=== PATIENT | male | born 1950 | race Hispanic/Latino ===

== ENCOUNTER 2018-02-08 12:27 | Emergency (ER) | payer OTHER ==
--- NOTE | 2018-02-08 14:07 | ER ---
Nurse's Notes [facility] Name: Nii Zelaya Age: 67 yrs Sex: Male : 1950 Arrival Date: 02/08/2018 Time: 12:32 Bed 23 Private MD: Diagnosis: Encounter for checking and testing of cardiac pacemaker pulse generator [battery] Presentation: 02/08 12:38 Presenting complaint: Patient states: Pacer/defibrillator beeped once last night, twice hb today. Pt reports chest pressure but says he has it all the time, the pain is the same. Transition of care: patient was not received from another setting of care. Onset of symptoms was February 07, 2018. Care prior to arrival: None. 12:38 Method Of Arrival: Ambulatory hb 12:38 Acuity: WILLIAM 3 hb Historical: - Allergies: 12:41 No Known Allergies; hb - PMHx: 12:41 CHF; on Heart Transplant List; pacemaker/defbrilator; hb - PSHx: 12:41 CABG; hb - Immunization history:: Adult Immunizations up to date. - Social history:: Smoking status: Patient/guardian denies using tobacco. Screenin:28 Abuse screen: Denies threats or abuse. Nutritional screening: No deficits noted. tl3 Tuberculosis screening: No symptoms or risk factors identified. Fall Risk None identified. Assessment: 13:28 General: Appears in no apparent distress. comfortable, uncomfortable, well groomed, tl3 well developed, well nourished, Behavior is calm, cooperative, appropriate for age, quiet. Pain: Denies pain. Neuro: Level of Consciousness is awake, alert, obeys commands, Oriented to person, place, time, situation, Appropriate for age. Cardiovascular: Reports pt reports [employer] pace maker firing off during the night three times. Respiratory: Airway is patent Trachea midline Breath sounds are clear bilaterally. GI: No signs and/or symptoms were reported involving the gastrointestinal system. : No signs and/or symptoms were reported regarding the genitourinary system. EENT: No signs and/or symptoms were reported regarding the EENT system. Derm: No signs and/or symptoms reported regarding the dermatologic system. Musculoskeletal: No signs and/or symptoms reported regarding the musculoskeletal system. 14:20 Reassessment: No changes from previously documented assessment. Patient and/or family tl3 updated on plan of care and expected duration. Pain level reassessed. Patient is alert, oriented x 3, equal unlabored respirations, skin warm/dry/pink. pt in no distress. Vital Signs: 12:41 BP 155 / 77; Pulse 65; Resp 16; Temp 98; Pulse Ox 98% on R/A; Weight 70.31 kg; Height 5 hb ft. 3 in. (160.02 cm); Pain 3/10; 13:28 BP 152 / 69; Pulse 62; Resp 18; Pulse Ox 99% ; tl3 14:20 BP 151 / 72; Pulse 60; Resp 16; Pulse Ox 100% ; tl3 12:41 Body Mass Index 27.46 (70.31 kg, 160.02 cm) hb Vitals: 13:28 Cardiac Rhythm Assessment Regular. tl3 ED Course: 12:32 Patient arrived in ED. mr 12:39 Triage completed. hb 12:41 Arm band placed on left wrist. hb 13:07 [facility]. jr8 13:07 Isidro Agustin MD is Attending Physician. jr8 13:28 Jayna Cosby, DILIP is Primary Nurse. tl3 13:28 No apparent distress. tl3 13:28 Patient has correct armband on for positive identification. Placed in gown. Bed in low tl3 position. Call light in reach. Side rails up X 1. non destructive evaluation technician on. Pulse ox on. NIBP on. 13:28 No provider procedures requiring assistance completed. tl3 14:20 Patient did not have IV access during this emergency room visit. tl3 Administered Medications: No medications were administered Outcome: 14:06 Discharge ordered by . jr8 14:27 Discharged to home ambulatory. tl3 14:27 Condition: good 14:27 Discharge instructions given to patient, Instructed on discharge instructions, follow up and referral plans. Demonstrated understanding of instructions, follow-up care, stressed f/u with cardiololgist 14:28 Patient left the ED. tl3 Signatures: Mami Benton mr Mesfin Juarez PA PA 8 Maggy Flores RN RN Jayna Cosby RN RN tl3
--- NOTE | 2018-02-08 14:07 | EDPHYS ---
Physician Documentation [facility] Name: Nii Zelaya Age: 67 yrs Sex: Male : 1950 Arrival Date: 02/08/2018 Time: 12:32 Bed 23 Private MD: ED Physician Isidro Agustin HPI: 02/08 14:06 This 67 yrs old Male presents to ER via Ambulatory with complaints of jr8 Pacemaker problem. 14:02 Patient stated that he heard two beeps last night that he though was coming from his jr8 pacemaker. Stated that he heard the same two this AM. Came to be evaluated since it has not stopped . Severity of symptoms: At their worst the symptoms were very mild. The patient has not experienced similar symptoms in the past. The patient has not recently seen a physician. Historical: - Allergies: 12:41 No Known Allergies; hb - PMHx: 12:41 CHF; on Heart Transplant List; pacemaker/defbrilator; hb - PSHx: 12:41 CABG; hb - Immunization history:: Adult Immunizations up to date. - Social history:: Smoking status: Patient/guardian denies using tobacco. ROS: 14:02 Eyes: Negative for injury, pain, redness, and discharge, ENT: Negative for injury, jr8 pain, and discharge, Neck: Negative for injury, pain, and swelling, Respiratory: Negative for shortness of breath, cough, wheezing, and pleuritic chest pain, Abdomen/GI: Negative for abdominal pain, nausea, vomiting, diarrhea, and constipation, Back: Negative for injury and pain, MS/Extremity: Negative for injury and deformity, Skin: Negative for injury, rash, and discoloration, Neuro: Negative for headache, weakness, numbness, tingling, and seizure. 14:02 Cardiovascular: Positive for chest pain, Patient stated that he always has pain due to jr8 extensive history. Nothing abnormal or new today per him . Exam: 14:02 Head/Face: Normocephalic, atraumatic. Eyes: Pupils equal round and reactive to light, jr8 extra-ocular motions intact. Lids and lashes normal. Conjunctiva and sclera are non-icteric and not injected. Cornea within normal limits. Periorbital areas with no swelling, redness, or edema. ENT: Nares patent. No nasal discharge, no septal abnormalities noted. Tympanic membranes are normal and external auditory canals are clear. Oropharynx with no redness, swelling, or masses, exudates, or evidence of obstruction, uvula midline. Mucous membranes moist. Neck: Trachea midline, no thyromegaly or masses palpated, and no cervical lymphadenopathy. Supple, full range of motion without nuchal rigidity, or vertebral point tenderness. No Meningismus. Chest/axilla: Normal chest wall appearance and motion. Nontender with no deformity. No lesions are appreciated. Cardiovascular: Regular rate and rhythm with a normal S1 and S2. No gallops, murmurs, or rubs. Normal PMI, no JVD. No pulse deficits. Respiratory: Lungs have equal breath sounds bilaterally, clear to auscultation and percussion. No rales, rhonchi or wheezes noted. No increased work of breathing, no retractions or nasal flaring. Abdomen/GI: Soft, non-tender, with normal bowel sounds. No distension or tympany. No guarding or rebound. No evidence of tenderness throughout. Back: No spinal tenderness. No costovertebral tenderness. Full range of motion. Skin: Warm, dry with normal turgor. Normal color with no rashes, no lesions, and no evidence of cellulitis. MS/ Extremity: Pulses equal, no cyanosis. Neurovascular intact. Full, normal range of motion. Neuro: Awake and alert, GCS 15, oriented to person, place, time, and situation. Cranial nerves II-XII grossly intact. Motor strength 5/5 in all extremities. Sensory grossly intact. Cerebellar exam normal. Normal gait. Vital Signs: 12:41 BP 155 / 77; Pulse 65; Resp 16; Temp 98; Pulse Ox 98% on R/A; Weight 70.31 kg; Height 5 hb ft. 3 in. (160.02 cm); Pain 3/10; 13:28 BP 152 / 69; Pulse 62; Resp 18; Pulse Ox 99% ; tl3 14:20 BP 151 / 72; Pulse 60; Resp 16; Pulse Ox 100% ; tl3 12:41 Body Mass Index 27.46 (70.31 kg, 160.02 cm) hb MDM: 13:07 Patient medically screened. jr8 14:02 Data reviewed: vital signs, nurses notes, EKG. Data interpreted: Pulse oximetry: on jr8 room air is 99 %. Interpretation: normal. Counseling: I had a detailed discussion with the patient and/or guardian regarding: the historical points, exam findings, and any diagnostic results supporting the discharge/admit diagnosis, the need for outpatient follow up, a animal pathology teacher, a family practitioner, to return to the emergency department if symptoms worsen or persist or if there are any questions or concerns that arise at home. ED course: Pacemaker interrogated and rep called reporting no abnormality with device or its battery. Leads in good place. Earlier in the month had one short episode of AFib/flutter but nothing today or yesterday. 02/08 13:19 Order name: EKG; Complete Time: 13:20 jr8 02/08 13:19 Order name: EKG - Nurse/Tech; Complete Time: 13:34 jr8 Administered Medications: No medications were administered Disposition: 15:26 Co-signature as Attending Physician, Isidro Agustin MD I agree with the assessment and kdr plan of care. Disposition: 02/08/18 14:06 Discharged to Home. Impression: Encounter for checking and testing of cardiac pacemaker pulse generator [battery]. - Condition is Stable. - Discharge Instructions: Pacemaker Implantation, Care After. - Medication Reconciliation Form, Thank You Letter, Antibiotic Education, Prescription Opioid Use form. - Follow up: Private Physician; When: 2 - 3 days; Reason: Recheck today's complaints, Continuance of care, Re-evaluation by your physician. - Problem is new. - Symptoms have improved. Signatures: Isidro Agustin MD MD [facility] Mesfin Juarez PA PA jr8 Maggy Flores RN RN Jayna Cosby RN RN tl3 Corrections: (The following items were deleted from the chart) 14:04 14:02 Eyes: Negative for injury, pain, redness, and discharge, ENT: Negative for jr8 injury, pain, and discharge, Neck: Negative for injury, pain, and swelling, Cardiovascular: Negative for chest pain, palpitations, and edema, Respiratory: Negative for shortness of breath, cough, wheezing, and pleuritic chest pain, Abdomen/GI: Negative for abdominal pain, nausea, vomiting, diarrhea, and constipation, Back: Negative for injury and pain, MS/Extremity: Negative for injury and deformity, Skin: Negative for injury, rash, and discoloration, Neuro: Negative for headache, weakness, numbness, tingling, and seizure, jr8 14:06 14:06 This 67 yrs old Male presents to ER via Ambulatory with complaints of jr8 Fibulator problem. jr8
--- NOTE | 2018-02-10 12:55 | EKG ---
Test Date: 2018-02-08 Test Time: 13:28:32 Potato Grader: RENNY MEASUREMENT RESULTS: Intervals: Rate: 61 NM: 252 QRSD: 96 QT: 434 QTc: 436 [place]: P: -21 NM: 252 QRS: -1 T: 151 INTERPRETIVE STATEMENTS: Atrial-paced rhythm with prolonged AV conduction Septal infarct, age undetermined T wave abnormality, consider lateral ischemia Abnormal ECG Compared to ECG 05/10/2011 05:14:42 Sinus rhythm no longer present Myocardial infarct finding still present T-wave abnormality still present Electronically Signed On 02-10-18 12:54:41 CDT by Micheal Garrison
== END 2018-02-08 14:28 | disposition home or self-care (01) ==
LOC: ER 12:27
DX: Z45.010 Encounter for checking and testing of cardiac pacemaker pulse generator [battery] (principal); I50.9 Heart failure, unspecified; Z95.1 Presence of aortocoronary bypass graft
CPT/HCPCS: 93005; 99284

== ENCOUNTER 2018-09-26 10:51 | Emergency (ER) | payer OTHER ==
--- OUTSIDE RECORDS SUMMARY | 2018-09-26 10:54 | XMS REPORT | Clinical Summary ---
:[address] [facility] Address [address] [place] [address] Care Team Providers Name Role Phone Samia Kahn Boat [employer] Unavailable Mami Bains MD Primary Care Provider Allergies No Known Allergies Medications Medication Sig Dispensed Refills Start End Status Date Date nitroglycerin Place 0.4 mg 0 Active (NITROSTAT) 0.4 MG SL under the tongue tablet every 5 (five) minutes as needed for Chest pain. glipiZIDE (GLUCOTROL) Take 5 mg by 0 03/31/20 Active 10 MG mouth 2 (two) 14 tabletIndications: times daily Cardiomyopathy (HCC), before meals . Awaiting organ transplant pregabalin (LYRICA) 50 Take 50 mg by 0 Active MG capsuleIndications: mouth 3 (three) Cardiomyopathy (HCC), times daily . Awaiting organ transplant omeprazole (PRILOSEC) Take 20 mg by 0 Active 20 MG capsule mouth daily . clopidogrel (PLAVIX) Take 75 mg by 0 Active 75 mg tablet mouth daily. docusate sodium Take 100 mg by 0 Active (COLACE) 100 MG mouth 2 (two) capsule times daily. metoprolol (TOPROL-XL) Take 50 mg by 0 Active 50 MG 24 hr tablet mouth 2 (two) times daily . atorvastatin (LIPITOR) Take 1 tablet (80 30 tablet 5 02/08/20 Active 80 MG mg total) by 18 tabletIndications: mouth nightly. Awaiting organ transplant furosemide (LASIX) 20 Take 1 tablet (20 30 tablet 5 02/08/20 Active MG tablet mg total) by 18 mouth daily. ranolazine (RANEXA) Take 1 tablet 60 tablet 5 02/09/20 Active 1,000 mg SR tablet (1,000 mg total) 18 by mouth 2 (two) times daily. aspirin 81 MG chewable Take 1 tablet (81 30 tablet 11 02/09/2002/08/ Active tablet mg total) by 2018 mouth daily. meclizine HCl Take 12.5 mg by 0 Active (MECLIZINE ORAL) mouth 2 (two) times daily . insulin glargine Inject 70 Units 0 Active (LANTUS) 100 unit/mL subcutaneously injection nightly Use as directed . sacubitril-valsartan Take 1 tablet by 0 Active (ENTRESTO) 97-103 mg mouth 2 (two) Tab times daily. isosorbide mononitrate Take 1 tablet (60 30 tablet 11 09/20/2009/20/ Active (IMDUR) 60 MG 24 hr mg total) by 2018 tablet mouth daily. amLODIPine (NORVASC) Take 1 tablet 30 tablet 11 09/20/20 Active 2.5 MG tablet (2.5 mg total) by 18 mouth daily. atorvastatin (LIPITOR) Take 80 mg by 0 02/07/ Discontinued 80 MG mouth nightly. 2018 tabletIndications: Cardiomyopathy (HCC), Awaiting organ transplant furosemide (LASIX) 40 Take 1 tablet (40 90 tablet 3 06/06/09/27/ Discontinued MG tablet mg total) by 2016 mouth daily. hydrochlorothiazide Take 25 mg by 0 12/07/ Discontinued (HYDRODIURIL) 25 MG mouth daily. 2018 tabletIndications: Cardiomyopathy (HCC), Awaiting organ transplant, Immunization due ranolazine (RANEXA) Take 1,000 mg by 0 12/24/ Discontinued 1,000 mg SR mouth 2 (two) 2018 tabletIndications: times daily . Cardiomyopathy (HCC), Awaiting organ transplant, Immunization due meclizine (ANTIVERT) Take 12.5 mg by 0 03/01/ Discontinued 12.5 mg tablet mouth 2 (two) 2018 times daily as needed for Dizziness . insulin detemir Inject 65 Units 0 07/24/ Discontinued (LEVEMIR) 100 unit/mL subcutaneously 2 2017 injection (two) times daily . metFORMIN (GLUCOPHAGE) Take 1,000 mg by 0 12/04/ Discontinued 1000 MG tablet mouth 2 (two) 2018 times daily with breakfast and dinner. ferrous gluconate Take 324 mg by 0 11/08/ Discontinued (FERGON) 324 MG tablet mouth daily with 2016 breakfast. lisinopril Take 1 tablet (5 30 tablet 11 03/22/2002/07/ Discontinued (PRINIVIL,ZESTRIL) 5 mg total) by 2017 MG tablet mouth daily. insulin detemir Inject 60 Units 0 Discontinued (LEVEMIR) 100 unit/mL subcutaneously 2018 injection nightly . isosorbide mononitrate Take 1 tablet (60 30 tablet 11 06/11/20 Discontinued (IMDUR) 60 MG 24 hr mg total) by 2017 tablet mouth 2 (two) times daily. aspirin 325 MG tablet Take 325 mg by 0 11/08/ Discontinued mouth daily. 2017 metoprolol (TOPROL-XL) Take 1 tablet 180 tablet 3 08/16/2011/08/ Discontinued 100 MG 24 hr tablet (100 mg total) by 2016 mouth 2 (two) times daily. UNKNOWN Take 1 tablet by 0 12/07/ Discontinued mouth daily Med 2018 Name: OcuXanthin 1 tablet daily . UNKNOWN Take 1 tablet by 0 02/07/ Discontinued mouth daily Med 2018 Name: Arjuna 1 tablet daily . furosemide (LASIX) 40 Take 1 tablet (40 90 tablet 3 09/27/2009/27/ Discontinued MG tablet mg total) by 2016 mouth daily. amLODIPine (NORVASC) Take 1 tablet 30 tablet 5 09/27/2012/24/ Discontinued 2.5 MG tablet (2.5 mg total) by 2017 mouth daily. furosemide (LASIX) 20 40 mg in am and 90 tablet 5 09/27/2012/07/ Discontinued MG tablet 20 mg in pm. 2017 aspirin 81 MG chewable Take 1 tablet (81 90 tablet 3 11/08/2002/07/ Discontinued tablet mg total) by 2017 mouth daily. metoprolol (TOPROL-XL) Take 1 tablet (50 60 tablet 5 11/08/2012/24/ Discontinued 50 MG 24 hr tablet mg total) by 2017 mouth 2 (two) times daily. hydrOXYzine (ATARAX) Take 25 mg by 0 12/24/ Discontinued 25 MG tablet mouth every night 2017 as needed (sleep). furosemide (LASIX) 20 Take 1 tablet (20 20 tablet 0 12/07/12/24/ Discontinued MG tablet mg total) by 2017 mouth daily. isosorbide dinitrate Take 30 mg by 0 12/25/ Discontinued (ISORDIL) 30 MG tablet mouth 2 (two) 2018 times daily. metoprolol (TOPROL-XL) Take 50 mg by 0 12/24/ Discontinued 50 MG 24 hr tablet mouth daily. 2018 docusate sodium Take 1 capsule 60 capsule 0 12/24/1912/25/ Discontinued (COLACE) 100 MG (100 mg total) by 2017 capsule mouth 2 (two) times daily for 30 days. hydroCHLOROthiazide Take 25 mg by 0 12/24/ Discontinued (HYDRODIURIL) 25 MG mouth daily. 2018 tablet furosemide (LASIX) 20 Take 1 tablet (20 20 tablet 0 12/24/1912/25/ Discontinued MG tablet mg total) by 2017 mouth daily for 30 days. ranolazine (RANEXA) Take 1 tablet 60 tablet 0 12/24/1912/25/ Discontinued 1,000 mg SR (1,000 mg total) 2017 tabletIndications: by mouth 2 (two) Ischemic times daily for cardiomyopathy, 30 days. Awaiting organ transplant hydroCHLOROthiazide Take 1 tablet (25 30 tablet 0 12/24/1912/25/ Discontinued (HYDRODIURIL) 25 MG mg total) by 2017 tablet mouth daily for 30 days. metoprolol (TOPROL-XL) Take 1 tablet (50 30 tablet 0 12/24/1912/25/ Discontinued 50 MG 24 hr tablet mg total) by 2017 mouth daily for 30 days. docusate sodium Take 1 capsule 60 capsule 0 12/25/1901/24/ (COLACE) 100 MG (100 mg total) by 2017 capsule mouth 2 (two) times daily for 30 days. ranolazine (RANEXA) Take 1 tablet 60 tablet 0 12/25/1901/24/ 1,000 mg SR (1,000 mg total) 2017 tabletIndications: by mouth 2 (two) Ischemic times daily for cardiomyopathy, 30 days. Awaiting organ transplant hydroCHLOROthiazide Take 1 tablet (25 30 tablet 0 12/25/1901/24/ (HYDRODIURIL) 25 MG mg total) by 2017 tablet mouth daily for 30 days. furosemide (LASIX) 20 Take 1 tablet (20 20 tablet 0 12/25/1901/24/ MG tablet mg total) by 2017 mouth daily for 30 days. metoprolol (TOPROL-XL) Take 1 tablet (50 30 tablet 0 12/25/1901/24/ 50 MG 24 hr tablet mg total) by 2017 mouth daily for 30 days. isosorbide dinitrate Take 1 tablet (30 60 tablet 0 12/25/1901/24/ (ISORDIL) 30 MG tablet mg total) by 2017 mouth 2 (two) times daily for 30 days. sacubitril-valsartan Take 1 tablet by 0 02/07/ Discontinued (ENTRESTO) 49-51 mg mouth 2 (two) 2017 Tab times daily. aspirin 325 MG tablet Take 325 mg by 0 02/08/ Discontinued mouth daily. 2018 furosemide (LASIX) 20 Take 20 mg by 0 02/07/ Discontinued MG tablet mouth daily. 2018 isosorbide mononitrate Take 30 mg by 0 02/07/ Discontinued (IMDUR) 60 MG 24 hr mouth 2 (two) 2018 tablet times daily. hydroCHLOROthiazide Take 25 mg by 0 03/01/ Discontinued (HYDRODIURIL) 25 MG mouth daily. 2018 tablet ranolazine (RANEXA) Take 500 mg by 0 02/07/ Discontinued 1,000 mg SR tablet mouth 2 (two) 2018 times daily. isosorbide mononitrate Take 1 tablet (30 60 tablet 5 02/08/2003/01/ Discontinued (IMDUR) 30 MG 24 hr mg total) by 2017 tablet mouth 2 (two) times daily. ranolazine (RANEXA) Take 1 tablet 60 tablet 5 02/08/2002/08/ Discontinued 500 MG 12 hr tablet (500 mg total) by 2017 mouth 2 (two) times daily. sacubitril-valsartan Take 1 tablet by 60 tablet 5 02/08/2003/01/ Discontinued (ENTRESTO) 97-103 mg mouth 2 (two) 2017 Tab times daily. amLODIPine (NORVASC) Take 2.5 mg by 0 09/20/ Discontinued 2.5 MG tablet mouth daily. 2018 hydrOXYzine (ATARAX) Take 25 mg by 0 Discontinued 25 MG tablet mouth every night 2017 as needed for Itching. sacubitril-valsartan Take 1 tablet by 0 03/04/ Discontinued (ENTRESTO) 49-51 mg mouth 2 (two) 2017 Tab times daily. sacubitril-valsartan Take 1 tablet by 60 tablet 5 03/04/05/03/ Discontinued (ENTRESTO) 97-103 mg mouth 2 (two) 2017 Tab times daily. sacubitril-valsartan Take 1 tablet by 0 09/20/ Discontinued (ENTRESTO) 49-51 mg mouth 2 (two) 2017 Tab times daily. isosorbide dinitrate Take 20 mg by 0 09/20/ Discontinued (ISORDIL) 20 MG tablet mouth 2 (two) 2017 times daily. Active Problems Patient Care Coordination Note INTERIM TESTS/STUDIES 2D Echo, 03/11/18 Summary The left ventricle is chamber size (by vol index) is normal (male - LVED vol - 34-74ml/m2). LVIDd: 4.56 cm. Mild concentric LV hypertrophy. The following segment(s) appear akinetic: basal-mid inferior, basal inferoseptum. Basal inferolateral wall is hypokinetic . LVEF by Estevez's method of disk assessment is mildly reduced (45-49%) . Grade 1 diastolic dysfunction (impaired relaxation and low-normal LA pressure). Mild aortic stenosis. Estimated peak systolic PA pressure is 20-25 mmHg + RA pressure. No pericardial effusion is visualized. Previous Study In comparison with the prior exam 12/06/2017 the following changes are noted: LVEF likely improved 2DEcho, 04/23/17 Summary: Moderately depressed LV function. LVEF 35-39% Mildly dilated LV cavity. LVIDd 5.51 cm. LA volume index is severely increased (>39 ml/m2). Compare to study of 10/2016, LV cavity is larger. Nuclear Stress Test, 04/23/17 Conclusion: Abnormal lexiscan Tc-99m Myoview myocardial perfusion study showing a moderate anterior and apical nontransmural scar with minimal associated ischemia, and a moderate sized inferolateral nontransmural scar with a small amount of associated ischemia. Severely impaired systolic function, with a resting ejection fraction of 25%, and regional wall motion abnormalities. [facility] 09/13/2017 Right heart pressure readings were as follows: RA 11 mm Hg RV 49/9 (mean 14) mm Hg PA 47/24 (mean 32) mm Hg PCWP 24 mm Hg PA saturation 59% Arterial saturation 99% Lina C.I. - 1.83 Left Heart Cath (Dr Jiménez) 10/19/2016 Post OP Findings: Left Main 99 % Stenosis, subtotal occlusion LAD 100% proximal occlusion LCx 100% proximal occlusion RCA 90% ostial with diffuse disease SVG to OM1 90% stenosis just distal to SVG graft touchdown KING 30% in-stent stenosis of ostial KING stent Tortuous NM Stress Test 10/12/2016 Conclusion: Abnormal lexiscan Tc-99m Myoview myocardial perfusion study showing a moderate anterior and apical nontransmural scar with moderate associated ischemia, and a moderate sized inferolateral nontransmural scarwith a small amount of associated ischemia. Moderately impaired systolic function,with resting ejection fraction of 37%, and regional wall motion abnormalities. With ICMP , chronic systolic heart failure with improved EF of 50-54% by echo 10/2015, CAD, s/p ACB 1999 , s/p PCI /stent 2012 with intractable angina who is listed for heart transplant since 11/2013. [facility] dennis has a history of ICD implant. The patient has been followed by Dr. Estuardo Jiménez and was referred to the [facility] for follow-up with a transplant physician. 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 05/08/2013 1) Global LV hypokinesis. 2) Estimated LVEF is 35-39%. Calculated EF by Estevez's 39%, LVIDd 4.5 cm. 3) Pseudonormal mitral filling pattern. Pulmonary venous flow is suggestive of elevated left atrial pressure. 4) The RAP is estimated to be 6-10 mmHg. The PA systolic pressure is estimated at 35-40 mmHg. Right heart catheterization 09/2013 PA 04/09/14 PCW 8 CO 3.9 CI 2.2 PVR 1.28 Left heart Catheterization 06/14/2015 Left Main - Severely diseased distal LM 100% Anterior Descending - Severe disease 100% Cicumflex/OM Branches - 100% proximal LCx. Hopi OM1 distal to the graft anastomosis is 100% and the other OM2 is diffusely diseased Right Coronary - diffusely 80-90% diseased narrow vessel KING to LAD: patent . Distal LAD is diffusely diseased. SVG-RCA : 100% old known chronic occlusion SVG-OM : aneurysmal middle segment with tapering at distal end where there is 40-50% stenosis Myocardial Perfusion Study ( [facility]) 10/18/2015 Moderate anterior nontransmural scar with moderate associated ischemia, and a moderate inferolateral nontransmural scar with moderate associated ischemia. Moderately impaired systolic function, with a resting EF of 34 % and regional wall motion abnormalities. MVO2 08/28/2013 VO2 Max 11.0 ( 30 % predicted ) RER 1.16 Assessment and Plan HFrEF ICMP, w/ improved EF 50-54% by echo 10/2015 NYHA Class , Stage D Current HF RX: Toprol XL 100 mg/d, lisinopril 2.5 mg/d, furosemide 40 mg/d CAD w/ intractable angina, s/p ACB 1999, s/p GENESIS 2012 - no options for revascularization - heart transplant listed since 11/2013 - on DAPT, beta carissa, Ranexa HTN - on Toprol XL, lisinopril, hydrodiuril and Norvasc HLD - no RX - lipids 06/16/2015 :TC , TG ,HDL ,LDL Dual ICD ( MDT) implanted 05/[address] Quinteros - device monitored by IDDM, type II - on oral agent - HgA1c 06/16/2016: - managed by PRATIK - mild by sleep study 2004 GERD - on Prilosec CKD - Cr Plan per Mary Escalante MD Problem Noted Date CHF (congestive heart failure) 07/24/2018 Chronic combined systolic and diastolic CHF (congestive heart failure) 2017 NM (myocardial infarction) 12/25/2017 Overview: S/p CABG(1999), s/p Stents TIA (transient ischemic attack) 12/25/2017 Overview: 2014 Former smoker 12/25/2017 CKD (chronic kidney disease) 12/25/2017 GERD (gastroesophageal reflux disease) 12/25/2017 Depression 12/25/2017 Anxiety 12/25/2017 Type 2 diabetes mellitus without complication 09/04/2016 AICD (automatic cardioverter/defibrillator) present 06/15/2016 Angina decubitus 03/13/2014 HTN (hypertension) 07/29/2013 Hyperlipidemia 07/29/2013 CAD (coronary artery disease) 05/08/2013 Ischemic cardiomyopathy Resolved Problems Problem Noted Date Resolved Date Heart failure 09/13/2017 12/25/2017 Systolic heart failure 12/25/2017 Encounters Date Type Specialty Care Team Description 09/20/2018 Office Visit Transplant Mary Escalante, Hyperlipidemia, unspecified hyperlipidemia type; Chronic combined systolic and diastolic CHF (congestive heart failure ) (HCC); Type 2 diabetes mellitus without complication, unspecified whether skilled nursing insulin use (HCC); Awaiting organ transplant status; AICD (automatic cardioverter/defibrillator) present 09/20/2018 Orders Only Transplant Steven Ty, Awaiting organ pe teacher status (Primary Dx) 09/10/2018 Telephone Transplant Emma Haq Appointment 09/09/2018 Initial consult Transplant Mary Escalante MD Vanzandt, Michelle 09/09/2018 Abstract Transplant SeverinoEmma 09/09/2018 Documentation Transplant Karen Alonso 08/27/2018 Telephone Transplant Lucho Nunez RN Waitlist Maintenance 08/27/2018 Documentation Transplant Mami Kelley 08/23/2018 Telephone Transplant Rush Ferrera RN Advice Only (unos) 07/25/2018 Orders Only Transplant Bessie Boles, Hyperlipidemia, unspecified hyperlipidemia type (Primary Dx); RN AICD (automatic cardioverter/defibrillator) present; Type 2 diabetes mellitus without complication, unspecified whether terminal block assembler insulin use (HCC); Chronic combined systolic and diastolic CHF (congestive heart failure) (HCC) 07/24/2018 Surgery Mary Escalante R CATH MD 07/24/2018 Hospital Encounter Mary Escalante, Monica Knight MD 07/23/2018 Orders Only Cardiology Shoshana Mckeon MD 06/04/2018 Telephone Cardiology Mary Escalante, Congestive Heart MD Failure 05/29/2018 Telephone Transplant Steven Ty, Waitlist Maintenance RN ([facility] update) 05/17/2018 Telephone Transplant Sissy Winchester Waitlist Maintenance RN 05/03/2018 Office Visit Transplant Mary Escalante, Chronic combined systolic (congestive) and diastolic (congestive) heart failure (HCC); Ischemic cardiomyopathy; Type 2 diabetes mellitus without complication, unspecified whether skilled nursing insulin use (HCC) 04/26/2018 Telephone Transplant Jesika Waitlist Maintenance Prakash Cordova RN 04/25/2018 Orders Only Transplant Bessie Boles, AICD (automatic cardioverter/defibrillator) present (Primary Dx); RN Type 2 diabetes mellitus without complication, unspecified whether terminal block assembler insulin use (HCC) 04/16/2018 Telephone Transplant Yao Cancholalist Maintenance Prakash Cordova RN 03/11/2018 Hospital Encounter Cardiology Systolic heart failure (HCC); Ischemic cardiomyopathy; Chronic combined systolic and diastolic CHF (congestive heart failure) (HCC) 03/04/2018 Orders Only Transplant Dayana Partida RN 03/01/2018 Office Visit Transplant Mary Escalante, Systolic heart failure (HCC); Ischemic cardiomyopathy 02/28/2018 Documentation Transplant Kelley, Josey 02/08/2018 Orders Only Transplant Dayana Partida RN 02/08/2018 Orders Only Transplant Dayana Partida RN 02/07/2018 Office Visit Transplant Mary Escalante, Hyperlipidemia, unspecified hyperlipidemia type; Chronic systolic heart failure (HCC); Systolic heart failure, unspecified heart failure chronicity (HCC); Ischemic cardiomyopathy; Awaiting organ transplant 12/24/2017 Office Visit Cardiology Isidro Hanna NP Chronic combined systolic and diastolic heart failure (HCC) (Primary Dx); Ischemic cardiomyopathy; Awaiting organ transplant 12/03/2017 Hospital Encounter Cardiology Zofia Willett MD Chest pain with - Vargas Briggs moderate risk of 12/07/2017 MD Vijay acute coronary Breanne Garcia MD syndrome (Primary Dx) 12/03/2017 Orders Only General Internal Medicine 12/03/2017 Telephone Transplant Nidhi Santiago RN 12/03/2017 Telephone Transplant Mami Kelley R 11/14/2017 Documentation Transplant Karen Alonso 11/08/2017 Office Visit Transplant Mary Escalante, Systolic heart failure , unspecified heart failure chronicity (HCC); Ischemic cardiomyopathy 10/23/2017 Telephone Transplant Steven Ty, Waitlist Maintenance RN (Financial Status); Follow-up (Financial Clearance); Financial Clearance 10/12/2017 Lab Requisition Lab 10/10/2017 Hospital Encounter Cardiology Mary Escalante, Systolic heart MD failure, unspecified heart failure chronicity (HCC) 10/01/2017 Telephone Transplant Dayana Partida, DILIP Results 10/01/2017 Orders Only Transplant Dayana Partida RN Awaiting organ transplant status (Primary Dx); Ischemic cardiomyopathy; Chronic systolic heart failure (HCC) 09/28/2017 Telephone Transplant Steven Ty, Waitlist Status RN Update (Reactivation) 09/27/2017 Office Visit Transplant Mary Escalante, Systolic heart failure , unspecified heart failure chronicity ([facility]); Ischemic cardiomyopathy; AICD (automatic cardioverter/defibrillator) present after 09/25/2017 Immunizations Name Dates Previously Given Next Due Influenza High Dose Preservative Free IM 08/16/2017 Influenza TIV (IM) 09/09/2014 Pneumococcal Polysaccharide (Pneumovax) 03/13/2014 Family History Medical History Relation Name Comments Cancer Father Diabetes Maternal Aunt Heart disease Maternal Aunt Diabetes Maternal Uncle Heart disease Maternal Uncle Diabetes Mother Relation Name Status Comments Father Maternal Aunt Maternal Uncle Mother Social History Tobacco Use Types Packs/Day Years Used Date Former Smoker Quit: 03/13/1974 Smokeless Tobacco: Never Used Alcohol Use Drinks/Week oz/Week Comments Yes 2 beers every other week Sex Assigned at Date Recorded Not on file Job Start Date Occupation Industry Not on file Not on file Not on file Travel History Travel Start Travel End No recent travel history available. Last Filed Vital Signs Vital Sign Reading Time Taken Blood Pressure 140/82 09/20/2018 9:06 AM [facility] Pulse 82 09/20/2018 9:06 AM [employer] [facility] Temperature 35.9 C (96.7 F) 09/20/2018 9:06 AM [employer] [facility] Respiratory Rate 16 09/20/2018 9:06 AM [employer] [facility] Oxygen Saturation 100% 09/20/2018 9:06 AM [employer] WIRER Inhaled Oxygen Concentration - - Weight 78.1 kg (172 lb 3.2 oz) 09/20/2018 9:06 AM [employer] [facility] Height 165.1 cm (5' 5") 09/20/2018 9:06 AM [employer] [facility] Body Mass Index 28.66 09/20/2018 9:06 AM B[facility]IRER Plan of Treatment Date Type Specialty Care Team Description 12/20/2018 Office Visit Transplant Mary Escalante MD [id number] [address] Health Maintenance Due Date Last Done Comments INFLUENZA VACCINE 08/12/2018 08/16/2017 Implants Implanted Type Area [employer] Device Shelf Model / Identifier Expiration Serial / Date Lot Device Clsr Angio-Seal Vip 6fr [id number] - [id number] Cardiovascular N/A: [employer] 07/12/2017 [id number] / Implanted: Qty: 1 on 10/19/2016 by Estuardo Jiménez MD [facility]: CARDIAC / SURG [id number] Device Clsr Angio-Seal Vip 6fr [id number] - [id number] Cardiovascular Right: [employer] 07/12/2018 [id number] / Implanted: Qty: 1 on 05/03/2017 by Estuardo Jiménez MD [employer]: CARDIAC / SURG [id number] Procedures Procedure Name Priority Date/Time Associated Diagnosis Comments CBC W/PLT COUNT & STAT 09/20/2018 9:36 Chronic combined Results for this AUTO DIFFERENTIAL AM [employer] [facility] systolic and diastolic procedure are in CHF (congestive heart the results failure) (HCC) section. HEMOGLOBIN A1C STAT 09/20/2018 9:36 Type 2 diabetes Results for this AM B[employer] [facility] mellitus without procedure are in complication, the results unspecified whether section. terminal block assembler insulin use (HCC) B-TYPE NATRIURETIC STAT 09/20/2018 9:36 Chronic combined Results for this FACTOR (BNP) AM [employer] [facility] systolic and diastolic procedure are in CHF (congestive heart the results failure) (HCC) section. CBC W/PLT COUNT & STAT 09/20/2018 9:36 Chronic combined Results for this AUTO DIFFERENTIAL AM [employer] [facility] systolic and diastolic procedure are in CHF (congestive heart the results failure) (HCC) section. BASIC METABOLIC STAT 09/20/2018 9:35 Chronic combined Results for this PANEL (7) AM [employer] [facility] systolic and diastolic procedure are in CHF (congestive heart the results failure) (HCC) section. HEPATIC FUNCTION STAT 09/20/2018 9:35 Hyperlipidemia, Results for this PANEL AM B[employer] [facility]IRER unspecified procedure are in hyperlipidemia type the results section. LIPID PANEL STAT 09/20/2018 9:35 Hyperlipidemia, Results for this AM BODY WIRER unspecified procedure are in hyperlipidemia type the results section. TRANSFUSION SERVICE 07/25/2018 5:53 REPORT - SCAN PM CDT CARDIAC CATH REPORT 07/25/2018 1:41 - SCAN PM CDT R CATH 07/24/2018 1:00 Chronic combined PM CDT systolic and diastolic congestive heart failure (HCC) Case Notes POP6 REQUESTING AFTER 12PM. POCT-GLUCOSE METER Routine 07/24/2018 12:50 Results for this PM CDT procedure are in the results section. CBC W/PLT COUNT & AUTO STAT 07/24/2018 9:39 Results for this DIFFERENTIAL AM CDT procedure are in the results section. TYPE AND SCREEN, Routine 07/24/2018 9:39 Results for this AUTOMATED AM CDT procedure are in the results section. CBC W/PLT COUNT & AUTO STAT 07/24/2018 9:39 Results for this DIFFERENTIAL AM CDT procedure are in the results section. BASIC METABOLIC PANEL STAT 07/24/2018 9:39 Results for this (7) AM CDT procedure are in the results section. CBC W/PLT COUNT & AUTO STAT 05/03/2018 8:23 Chronic combined Results for this DIFFERENTIAL AM CDT systolic (congestive) procedure are in and diastolic the results (congestive) heart section. failure (HCC) Ischemic cardiomyopathy HEMOGLOBIN A1C STAT 05/03/2018 8:23 Type 2 diabetes Results for this AM CDT mellitus without procedure are in complication, the results unspecified whether section. skilled nursing insulin use (HCC) B-TYPE NATRIURETIC STAT 05/03/2018 8:23 Chronic combined Results for this FACTOR (BNP) AM CDT systolic (congestive) procedure are in and diastolic the results (congestive) heart section. failure (HCC) Ischemic cardiomyopathy BASIC METABOLIC PANEL STAT 05/03/2018 8:23 Chronic combined Results for this (7) AM CDT systolic (congestive) procedure are in and diastolic the results (congestive) heart section. failure (HCC) Ischemic cardiomyopathy CBC W/PLT COUNT & AUTO STAT 05/03/2018 8:23 Chronic combined Results for this DIFFERENTIAL AM CDT systolic (congestive) procedure are in and diastolic the results (congestive) heart section. failure (HCC) Ischemic cardiomyopathy ECHOCARDIOGRAM REPORT 03/11/2018 3:55 - SCAN PM CDT 2D ECHO W/ DOPPLER Routine 03/11/2018 12:03 Systolic heart Results for this (CW/PW/COLOR) PM CDT failure (HCC) procedure are in Ischemic the results cardiomyopathy section. HLA TYPING CI Routine 03/01/2018 10:06 Systolic heart Results for this AM CDT failure (HCC) procedure are in Ischemic the results cardiomyopathy section. CBC W/PLT COUNT & AUTO STAT 03/01/2018 9:49 Systolic heart Results for this DIFFERENTIAL AM CDT failure (HCC) procedure are in Ischemic the results cardiomyopathy section. FLOW PRA CLASS II WITH Routine 03/01/2018 9:49 Systolic heart Results for this REFLEX TO ANTIBODY AM CDT failure (HCC) procedure are in SPECIFICITY Ischemic the results cardiomyopathy section. FLOW PRA CLASS I WITH Routine 03/01/2018 9:49 Systolic heart Results for this REFLEX TO ANTIBODY AM CDT failure (HCC) procedure are in SPECIFICITY Ischemic the results cardiomyopathy section. HLA TYPING CII Routine 03/01/2018 9:49 Systolic heart Results for this AM CDT failure (HCC) procedure are in Ischemic the results cardiomyopathy section. CBC W/PLT COUNT & AUTO STAT 03/01/2018 9:49 Systolic heart Results for this DIFFERENTIAL AM CDT failure (HCC) procedure are in Ischemic the results cardiomyopathy section. BASIC METABOLIC PANEL STAT 03/01/2018 9:49 Systolic heart Results for this (7) AM CDT failure (HCC) procedure are in Ischemic the results cardiomyopathy section. B-TYPE NATRIURETIC STAT 03/01/2018 9:49 Systolic heart Results for this FACTOR (BNP) AM CDT failure (HCC) procedure are in Ischemic the results cardiomyopathy section. ARRYTHMIA IMPLANT 02/19/2018 12:21 REPORT - SCAN PM CDT ARRYTHMIA IMPLANT 02/19/2018 12:21 REPORT - SCAN PM CDT B-TYPE NATRIURETIC STAT 02/07/2018 12:38 Systolic heart Results for this FACTOR (BNP) PM CDT failure, unspecified procedure are in heart failure the results chronicity (HCC) section. Ischemic cardiomyopathy CBC W/PLT COUNT & AUTO STAT 02/07/2018 12:37 Systolic heart Results for this DIFFERENTIAL PM CDT failure, unspecified procedure are in heart failure the results chronicity (HCC) section. Ischemic cardiomyopathy BASIC METABOLIC PANEL STAT 02/07/2018 12:37 Systolic heart Results for this (7) PM CDT failure, unspecified procedure are in heart failure the results chronicity (HCC) section. Ischemic cardiomyopathy CBC W/PLT COUNT & AUTO STAT 02/07/2018 12:37 Systolic heart Results for this DIFFERENTIAL PM CDT failure, unspecified procedure are in heart failure the results chronicity (HCC) section. Ischemic cardiomyopathy HEPATIC FUNCTION PANEL STAT 02/07/2018 12:37 Chronic systolic Results for this PM CDT heart failure (HCC) procedure are in the results section. LIPID PANEL STAT 02/07/2018 12:37 Hyperlipidemia, Results for this PM CDT unspecified procedure are in hyperlipidemia type the results Chronic systolic section. heart failure (HCC) MAGNESIUM Routine 12/24/2017 12:56 Chronic combined Results for this PM BODY WIRER systolic and procedure are in diastolic heart the results failure (HCC) section. B-TYPE NATRIURETIC STAT 12/24/2017 12:56 Chronic combined Results for this FACTOR (BNP) PM BODY WIRER systolic and procedure are in diastolic heart the results failure (HCC) section. BASIC METABOLIC PANEL STAT 12/24/2017 12:56 Chronic combined Results for this (7) PM BODY WIRER systolic and procedure are in diastolic heart the results failure (HCC) section. ECG 12-LEAD Routine 12/24/2017 12:16 Results for this PM BODY WIRER procedure are in the results section. ARRYTHMIA IMPLANT 12/10/2017 11:31 REPORT - SCAN AM BODY WIRER ARRYTHMIA IMPLANT 12/10/2017 11:31 REPORT - SCAN AM BODY WIRER RHYTHM STRIP - SCAN 12/10/2017 11:31 AM BODY WIRER POCT-GLUCOSE METER Routine 12/07/2017 7:24 Results for this AM BODY WIRER procedure are in the results section. CBC W/PLT COUNT & AUTO Routine 12/07/2017 5:31 Results for this DIFFERENTIAL AM BODY WIRER procedure are in the results section. CBC W/PLT COUNT & AUTO Routine 12/07/2017 5:31 Results for this DIFFERENTIAL AM BODY WIRER procedure are in the results section. BASIC METABOLIC PANEL Routine 12/07/2017 5:31 Results for this (7) AM BODY WIRER procedure are in the results section. POCT-GLUCOSE METER Routine 12/06/2017 9:17 Results for this PM BODY WIRER procedure are in the results section. POCT-GLUCOSE METER Routine 12/06/2017 4:35 Results for this PM BODY WIRER procedure are in the results section. ECG 12-LEAD Routine 12/06/2017 2:58 PM BODY WIRER Procedure Note - Interface, External Ris In - 12/06/2017 3:05 PM BODY WIRER Ventricular Rate 67 BPM Atrial Rate 67 BPM P-R Interval 222 ms QRS Duration 114 ms Q-T Interval 446 ms QTC Calculation(Bazett) 471 ms P [place] 55 degrees R [place]ph[place] -5 degrees T [place] 67 degrees Sinus rhythm with 1st degree A-V block Low voltage QRS Incomplete right bundle branch block Nonspecific T wave abnormality Prolonged QT Abnormal ECG When compared with ECG of 03-DEC-2017 13:15, Sinus rhythm has replaced Electronic atrial pacemaker T wave inversion no longer evident in Inferior leads T wave inversion no longer evident in Lateral leads ECG 12-LEAD STAT 12/06/2017 2:58 PM BODY WIRER ECHOCARDIOGRAM REPORT - SCAN 12/06/2017 2:26 PM BODY WIRER POCT-GLUCOSE METER Routine 12/06/2017 1:18 PM BODY WIRER POCT-GLUCOSE METER Routine 12/06/2017 8:09 AM BODY WIRER CBC W/PLT COUNT & AUTO Routine 12/06/2017 3:51 AM BODY WIRER Results for this DIFFERENTIAL procedure are in the results section. CBC W/PLT COUNT & AUTO Routine 12/06/2017 3:51 AM BODY WIRER Results for this DIFFERENTIAL procedure are in the results section. BASIC METABOLIC PANEL (7) Routine 12/06/2017 3:51 AM BODY WIRER POCT-GLUCOSE METER Routine 12/05/2017 9:42 PM BODY WIRER POCT-GLUCOSE METER Routine 12/05/2017 5:58 PM BODY WIRER 2D ECHO W/ DOPPLER WILMER 12/05/2017 5:37 PM BODY WIRER Results for this (CW/PW/COLOR) procedure are in the results section. POCT-GLUCOSE METER Routine 12/05/2017 2:25 PM BODY WIRER POCT-GLUCOSE METER Routine 12/05/2017 8:30 AM BODY WIRER CBC W/PLT COUNT & AUTO Routine 12/05/2017 4:11 AM BODY WIRER Results for this DIFFERENTIAL procedure are in the results section. CBC W/PLT COUNT & AUTO Routine 12/05/2017 4:11 AM BODY WIRER Results for this DIFFERENTIAL procedure are in the results section. BASIC METABOLIC PANEL (7) Routine 12/05/2017 4:11 AM BODY WIRER POCT-GLUCOSE METER Routine 12/04/2017 10:57 PM BODY WIRER POCT-GLUCOSE METER Routine 12/04/2017 9:52 PM BODY WIRER TROPONIN I Routine 12/04/2017 6:34 PM BODY WIRER POCT-GLUCOSE METER Routine 12/04/2017 6:18 PM BODY WIRER POCT-GLUCOSE METER Routine 12/04/2017 1:53 PM BODY WIRER POCT-GLUCOSE METER Routine 12/04/2017 12:04 PM BODY WIRER GLUCOSE STAT 12/04/2017 11:21 AM BODY WIRER TROPONIN I Routine 12/04/2017 11:21 AM BODY WIRER HEMOGLOBIN A1C Routine 12/04/2017 11:21 AM BODY WIRER POCT-GLUCOSE METER Routine 12/04/2017 11:17 AM BODY WIRER POCT-GLUCOSE METER Routine 12/04/2017 9:34 AM BODY WIRER ED ECG INTERPRETATION Routine 12/04/2017 12:41 AM BODY WIRER CBC W/PLT COUNT & AUTO STAT 12/03/2017 9:15 PM BODY WIRER Results for this DIFFERENTIAL procedure are in the results section. TROPONIN I STAT 12/03/2017 9:15 PM BODY WIRER B-TYPE NATRIURETIC FACTOR STAT 12/03/2017 9:15 PM BODY WIRER Results for this (BNP) procedure are in the results section. PT/APTT STAT 12/03/2017 9:15 PM BODY WIRER CBC W/PLT COUNT & AUTO STAT 12/03/2017 9:15 PM BODY WIRER Results for this DIFFERENTIAL procedure are in the results section. CREATINE KINASE (CK), TOTAL STAT 12/03/2017 9:15 PM BODY WIRER Results for this AND MB procedure are in the results section. MAGNESIUM STAT 12/03/2017 9:15 PM BODY WIRER BASIC METABOLIC PANEL (7) STAT 12/03/2017 9:15 PM BODY WIRER XR CHEST 2 VIEWS STAT 12/03/2017 2:23 PM BODY WIRER ECG 12-LEAD Routine 12/03/2017 1:15 PM BODY WIRER Procedure Note - Interface, External Ris In - 12/03/2017 11:11 PM BODY WIRER Ventricular Rate 86 BPM Atrial Rate 86 BPM P-R Interval 132 ms QRS Duration 106 ms Q-T Interval 392 ms QTC Calculation(Bazett) 469 ms R [place] 3 degrees T [place] -28 degrees Electronic atrial pacemaker Low voltage QRS Incomplete right bundle branch block ST & T wave abnormality, consider anterolateral ischemia Prolonged QT Abnormal ECG When compared with ECG of 15-JUN-2016 12:05, Electronic atrial pacemaker has replaced Sinus rhythm Non-specific change in ST segment in Anterior leads T wave inversion now evident in Inferior leads T wave inversion now evident in Anterolateral leads ECG 12-LEAD STAT 12/03/2017 1:15 Results for this PM BODY WIRER procedure are in the results section. CBC W/PLT COUNT & AUTO STAT 11/08/2017 1:11 Systolic heart Results for this DIFFERENTIAL PM BODY WIRER failure, unspecified procedure are in heart failure the results chronicity (HCC) section. Ischemic cardiomyopathy B-TYPE NATRIURETIC STAT 11/08/2017 1:11 Systolic heart Results for this FACTOR (BNP) PM BODY WIRER failure, unspecified procedure are in heart failure the results chronicity (HCC) section. Ischemic cardiomyopathy BASIC METABOLIC PANEL STAT 11/08/2017 1:11 Systolic heart Results for this (7) PM BODY WIRER failure, unspecified procedure are in heart failure the results chronicity (HCC) section. Ischemic cardiomyopathy CBC W/PLT COUNT & AUTO STAT 11/08/2017 1:11 Systolic heart Results for this DIFFERENTIAL PM BODY WIRER failure, unspecified procedure are in heart failure the results chronicity (HCC) section. Ischemic cardiomyopathy FLOW PRA CLASS I AND Routine 10/12/2017 3:35 Results for this II PM BODY WIRER procedure are in the results section. ECHOCARDIOGRAM REPORT 10/11/2017 11:24 - SCAN AM BODY WIRER 2D ECHO W/ DOPPLER Routine 10/10/2017 2:13 Systolic heart Results for this (CW/PW/COLOR) PM BODY WIRER failure, unspecified procedure are in heart failure the results chronicity (HCC) section. B-TYPE NATRIURETIC STAT 10/10/2017 1:29 Systolic heart Results for this FACTOR (BNP) PM BODY WIRER failure, unspecified procedure are in heart failure the results chronicity (HCC) section. Ischemic cardiomyopathy BASIC METABOLIC PANEL STAT 10/10/2017 1:29 Systolic heart Results for this (7) PM BODY WIRER failure, unspecified procedure are in heart failure the results chronicity (HCC) section. Ischemic cardiomyopathy CBC W/PLT COUNT & AUTO STAT 09/27/2017 12:29 Systolic heart Results for this DIFFERENTIAL PM BODY WIRER failure, unspecified procedure are in heart failure the results chronicity (HCC) section. Ischemic cardiomyopathy B-TYPE NATRIURETIC STAT 09/27/2017 12:29 Systolic heart Results for this FACTOR (BNP) PM BODY WIRER failure, unspecified procedure are in heart failure the results chronicity (HCC) section. Ischemic cardiomyopathy BASIC METABOLIC PANEL STAT 09/27/2017 12:29 Systolic heart Results for this (7) PM BODY WIRER failure, unspecified procedure are in heart failure the results chronicity (HCC) section. Ischemic cardiomyopathy CBC W/PLT COUNT & AUTO STAT 09/27/2017 12:29 Systolic heart Results for this DIFFERENTIAL PM BODY WIRER failure, unspecified procedure are in heart failure the results chronicity (HCC) section. Ischemic cardiomyopathy after 09/25/2017 Results CBC with platelet count + automated diff (09/20/2018 9:36 AM BODY WIRER)Only the most recent of11 resultswithin the time period is included. WBC 6.4 3.5 - 10.5 K/L [facility] RBC 4.97 4.63 - 6.08 M/L [facility] Hemoglobin 14.4 13.7 - 17.5 GM/DL [facility] Hematocrit 42.3 40.1 - 51.0 % [facility] MCV 85.1 79.0 - 92.2 fL [facility] MCH 29.0 25.7 - 32.2 pg [facility] MCHC 34.0 32.3 - 36.5 GM/DL [facility] RDW 14.5 (H) 11.6 - 14.4 % [facility] Platelets 128 (L) 150 - 450 K/CU MM [facility] MPV 13.1 (H) 9.4 - 12.4 fL [facility] nRBC 0 0 - 0 /100 WBC [facility] % Neutros 57 % [facility] % Lymphs 28 % [facility] % Monos 8 % [facility] % Eos 5 % [facility] % Baso 1 % [facility] # Neutros 3.66 1.78 - 5.38 K/L [facility] # Lymphs 1.79 1.32 - 3.57 K/L [facility] # Monos 0.54 0.30 - 0.82 K/L [facility] # Eos 0.34 0.04 - 0.54 K/L [facility] # Baso 0.06 0.01 - 0.08 K/L [facility] Immature Granulocytes-Relative 1 0 - 1 % [facility] Specimen Blood Performing Organization Address City/[facility]/Zipcode Phone Number [address] [address] CENTER B-type Natriuretic Factor (BNP) (09/20/2018 9:36 AM BODY WIRER)Only the most recent of9 resultswithin the time period is included. BNP 237 (H) 0 - 100 pg/mL [facility] Specimen Blood Performing Organization Address City/[facility]/Zipcode Phone Number [address] [address] CENTER Hemoglobin A1c (09/20/2018 9:36 AM BODY WIRER)Only the most recent of3 resultswithin the time period is included. Hemoglobin A1C 7.9 (H) 4.3 - 6.1 % [facility] Specimen Blood Performing Organization Address City/[facility] Phone Number [address] [address] [phone] CENTER Hepatic function panel (09/20/2018 9:35 AM BODY WIRER)Only the most recent of2 resultswithin the time period is included. Protein, Total 7.6 6.0 - 8.3 gm/dL [facility] Albumin 4.5 3.5 - 5.0 g/dL [facility] Total Bilirubin 0.8 0.2 - 1.2 mg/dL [facility] Bilirubin, Direct 0.3 0.1 - 0.5 mg/dL [facility] Alkaline Phosphatase 74 40 - 150 U/L [facility] AST 18 5 - 34 U/L [facility] ALT 20 6 - 55 U/L [facility] Specimen Blood Performing Organization Address [facility] Phone Number [address] [address] [phone] [place] Lipid panel (09/20/2018 9:35 AM BODY WIRER)Only the most recent of2 resultswithin the time period is included. Triglycerides 291 mg/dL [facility] Cholesterol 166 mg/dL [facility] HDL 32 mg/dL [facility] LDL Calculated 76 mg/dL [facility] Specimen Blood Narrative Performed At Triglyceride Reference Range: [facility] Low Risk <150 [id number] High Risk 200-499 Very High Risk>=500 Cholesterol Reference Range: Low Risk <200 [id number] High Risk>240 HDL Cholesterol Reference Range: Low Risk >=60 High Risk <40 LDL Cholesterol Reference Range: Optimal<100 Near [id number] Very High >=190 Performing Organization Address City/[facility] Phone Number [address] [address] [place] Basic Metabolic Panel (09/20/2018 9:35 AM BODY WIRER)Only the most recent of13 resultswithin the time period is included. Sodium 136 136 - 145 meq/L [facility] Potassium 4.2 3.5 - 5.1 meq/L [facility] Chloride 104 98 - 107 meq/L [facility] CO2 21 (L) 22 - 29 meq/L [facility] BUN 36 (H) 7 - 21 mg/dL [facility] Creatinine 1.87 (H) 0.57 - 1.25 mg/dL [facility] Glucose 105 70 - 105 mg/dL [facility] Calcium 9.7 8.4 - 10.2 mg/dL [facility] EGFR 36Comment: ESTIMATED GFR IS mL/min/1.73 sq m [facility] NOT ACCURATE [facility] CLEARANCE IN PREDICTING GLOMERULAR FILTRATION RATE. ESTIMATED GFR IS NOT APPLICABLE FOR DIALYSIS PATIENTS. Specimen Blood Performing Organization Address City/[facility]/Zipcode Phone Number [address] [address] CENTER TRANSFUSION SERVICE REPORT - SCAN (07/25/2018 5:53 PM CDT) Narrative Performed At CARDIAC CATH REPORT - SCAN (07/25/2018 1:41 PM CDT) Narrative Performed At POC-Glucose meter (07/24/2018 12:50 PM CDT)Only the most recent of17 resultswithin the time period is included. POC-Glucose Meter 48 (L)Comment: TESTED AT 70 - 110 mg/dL [facility] [address] [place] [id number] Specimen Blood Performing Organization Address [facility] Phone Number [address] [address] [phone] CENTER Type and screen, automated (07/24/2018 9:39 AM CDT) ABO/RH AUTOMATED (BEAKER) O NEGATIVE [facility] Ab Scrn NEGATIVE [facility] Specimen Blood - Arm, Left Performing Organization Address [facility] Phone Number [address] [address] ECHOCARDIOGRAM REPORT - SCAN (03/11/2018 3:55 PM CDT) Narrative Performed At 2D Echo W/Doppler(CW/PW/Color) (03/11/2018 12:03 PM CDT) Ejection Fraction [facility] MKCKESSON CPACS Narrative Performed At Transthoracic Echocardiography Report (TTE) [facility] Demographics Patient Name PASCUAL, Date of Study 03/11/2018 NII [id number] GenderMale Visit Number [id number] Room Number OP Number Date of Birth1950Referring Physician Boris Smith Age67 year(s)Actuarial Consultant Marcela Santoyo [facility] AnalystAriadna Marlon Osman MD [facility] Physician Procedure Type of Study TTE procedure:2DECHO W DOPPLER(CW/PW/COLOR) (Routine) Indications:Known or suspected heart failure. Clinical History HGB 13.3 HCT 39.6 % ICMP, CHF, CAD, DM, HLD, HTN, NM, PRATIK, SOB, Stroke/TIA, AICD s/p ACB x 3 (1999) Multiple PCI's Height: 65 inches Weight: 70.31 kg (155 lbs) BSA: 1.78 m^2 BMI: 25.79 kg/m^2 HR: 71 bpm BP: 141/75 mmHg Summary The left ventricle is chamber size (by vol index) is normal (male - LVED vol - 34-74ml/m2). Mild concentric LV hypertrophy. The following segment(s) appear akinetic: basal-mid inferior, basal inferoseptum. Basal inferolateral wall is hypokinetic . LVEF by Estevez's method of disk assessment is mildly reduced (45-49%) . Grade 1 diastolic dysfunction (impaired relaxation and low-normal LA pressure). Mild aortic stenosis. Estimated peak systolic PA pressure is 20-25 mmHg + RA pressure. No pericardial effusion is visualized. Previous Study In comparison with the prior exam 12/06/2017 the following changes are noted: LVEF likely improved . Signature Findings Technical Quality: Technically adequate exam. Left Ventricle The LV endocardium is adequately visualized. Th e left ventricle is chamber size (by vol index) is normal (male - LVED vol - 34-74ml/m2). Mi ld concentric LV hypertrophy. Th e following segment(s) appear akinetic: basal-mid in ferior, basal inferoseptum. Basal inferolateral wa ll is hypokinetic . LV EF by Estevez's method of disk assessment is mi ldly reduced (45-49%) . Gr shruthi 1 diastolic dysfunction (impaired relaxation an d low-normal LA pressure). Left AtriumLA size is normal (16-34 ml/m2) . Right VentricleThe right ventricular chamber size and systolic fu nction are within normal limits. Right Atrium RA size is normal. Atrial SeptumLipomatous hypertrophy of the interatrial septum is pr esent. An eurysmal interatrial septum. Aortic Valve Mild AoV cusp thickening. Mi ld AoV cusp calcification. Ao V cusp mobility is midely decreased . Ao V calcification primarily involves the left- co ronary cusp(s). Mi ld aortic stenosis. Mitral Valve Mild MV leaflet thickening. No significant mitral regurgitation. Tricuspid ValveTV structure is normal. A trace of tricuspid regurgitation. Es timated peak systolic PA pressure is 20-25 mmHg + RA pressure. Pulmonic Valve Normal PV structure and function. AortaAortic root size (SInus of Valsalva diameter) is no rmal . PericardiumNo pericardial effusion is visualized. IVC/SVC/PA/PV/PleuralThe estimated RA pressure by IVC dynamics 0-5mmHg . Chambers/Structures Left Atrium LA Dimension: 4.49 cmLA Area: 18.18 cm^2 LA Volume: 47.05 ml LA Vol. Index: 26 ml/m^2 Left Ventricle LVIDd: 4.56 cm LVIDs: 3.49 cm LV Septum Diastolic: 1.11 cm LV PW Diastolic: 1.13 cmLV FS: 23.5 % LVEDV Estevez's:92 ml LV IVRT: 218 msec LVESV Estevez's:49 ml LVEDVI: 52 ml/m^2 LVEF Estevez's: 47 % LVESVI: 28 ml/m^2 LVOT Diameter: 2.13 cm Right Atrium RA Vol. (Sngl Plane): 52.91 ml Right Ventricle RV Systolic Pressure: 25.76 mmHg Aorta Ao Root S of Gayatri.: 2.78 cmAscending Aorta: 3.24 cm Doppler/Quantitative Measurements Mitral Valve MV Peak E-Wave: 0.65 m/sMV Peak A-Wave: 0.97 m/s E/A Ratio: 0.67 Peak Gradient: 1.69 mmHg Deceleration Time: 196.5 msec MV Margarito. Peak: Tissue Doppler E' Lateral Velocity: 0.05 m/s E/E': 12.91 Aortic Valve Peak Velocity: 1.98 m/sMean Velocity: 1.31 m/s Peak Gradient: 15.72 mmHgMean Gradient: 8.02 mmHg AV Area (continuity): 1.62 cm^2 AV VTI: 40.66 cm AV DVI: 0.45 LVOT Peak Velocity: 0.86 m/s Peak Gradient: 2.97 mmHg Mean Velocity: 0.61 m/s Mean Gradient: 1.66 mmHg LVOT Diameter: 2.13 cmLVOT VTI: 18.45 cm LVOT Area: 3.56 cm^2LVOT SV:65.71 ml LVOT CO: 4.67 l/min LVOT CI: 2.62 l/min/m^2 RVOT RVOT VTI (PW): 21.54 cm Tricuspid Valve Estimated RAP: 3 mmHg TR Velocity: 2.39 m/s TR Gradient: 22.76 mmHg Pulmonic Valve Estimated PASP: 25.76 mmHg Procedure Note Interface, External Ris In - 03/11/2018 3:37 PM CDT Transthoracic Echocardiography Report (TTE) Demographics Patient Name GARNER, Date of Study 03/11/2018 NII Gender Male Visit Number [id number] Race Room Number OP Number Date of 1950 Referring Physician Boris Smith Age 67 year(s) Actuarial Consultant Marcela Santoyo RDCS Medical Geneticist Sade Osman MD [facility] Physician Procedure Type of Study TTE procedure:2DECHO W DOPPLER(CW/PW/COLOR) (Routine) Indications:Known or suspected heart failure. Clinical History HGB 13.3 HCT 39.6 % ICMP, CHF, CAD, DM, HLD, HTN, NM, PRATIK, SOB, Stroke/TIA, AICD s/p ACB x 3 (1999) Multiple PCI's Height: 65 inches Weight: 70.31 kg (155 lbs) BSA: 1.78 m^2 BMI: 25.79 kg/m^2 HR: 71 bpm BP: 141/75 mmHg Summary The left ventricle is chamber size (by vol index) is normal (male - LVED vol - 34-74ml/m2). Mild concentric LV hypertrophy. The following segment(s) appear akinetic: basal-mid inferior, basal inferoseptum. Basal inferolateral wall is hypokinetic . LVEF by Estevez's method of disk assessment is mildly reduced (45-49%) . Grade 1 diastolic dysfunction (impaired relaxation and low-normal LA pressure). Mild aortic stenosis. Estimated peak systolic PA pressure is 20-25 mmHg + RA pressure. No pericardial effusion is visualized. Previous Study In comparison with the prior exam 12/06/2017 the following changes are noted: LVEF likely improved . Signature Findings Technical Quality: Technically adequate exam. Left Ventricle The LV endocardium is adequately visualized. The left ventricle is chamber size (by vol index) is normal (male - LVED vol - 34-74ml/m2). Mild concentric LV hypertrophy. The following segment(s) appear akinetic: basal-mid inferior, basal inferoseptum. Basal inferolateral wall is hypokinetic . LVEF by Estevez's method of disk assessment is mildly reduced (45-49%) . Grade 1 diastolic dysfunction (impaired relaxation and low-normal LA pressure). Left Atrium LA size is normal (16-34 ml/m2) . Right Ventricle The right ventricular chamber size and systolic function are within normal limits. Right Atrium RA size is normal. Atrial Septum Lipomatous hypertrophy of the interatrial septum is present. Aneurysmal interatrial septum. Aortic Valve Mild AoV cusp thickening. Mild AoV cusp calcification. AoV cusp mobility is midely decreased . AoV calcification primarily involves the left- coronary cusp(s). Mild aortic stenosis. Mitral Valve Mild MV leaflet thickening. No significant mitral regurgitation. Tricuspid Valve TV structure is normal. A trace of tricuspid regurgitation. Estimated peak systolic PA pressure is 20-25 mmHg + RA pressure. Pulmonic Valve Normal PV structure and function. Aorta Aortic root size (SInus of Valsalva diameter) is normal . Pericardium No pericardial effusion is visualized. IVC/SVC/PA/PV/Pleural The estimated RA pressure by IVC dynamics 0-5mmHg . Chambers/Structures Left Atrium LA Dimension: 4.49 cm LA Area: 18.18 cm^2 LA Volume: 47.05 ml LA Vol. Index: 26 ml/m^2 Left Ventricle LVIDd: 4.56 cm LVIDs: 3.49 cm LV Septum Diastolic: 1.11 cm LV PW Diastolic: 1.13 cm LV FS: 23.5 % LVEDV Estevez's:92 ml LV IVRT: 218 msec LVESV Estevez's:49 ml LVEDVI: 52 ml/m^2 LVEF Estevez's: 47 % LVESVI: 28 ml/m^2 LVOT Diameter: 2.13 cm Right Atrium RA Vol. (Sngl Plane): 52.91 ml Right Ventricle RV Systolic Pressure: 25.76 mmHg Aorta Ao Root S of Gayatri.: 2.78 cm Ascending Aorta: 3.24 cm Doppler/Quantitative Measurements Mitral Valve MV Peak E-Wave: 0.65 m/s MV Peak A-Wave: 0.97 m/s E/A Ratio: 0.67 Peak Gradient: 1.69 mmHg Deceleration Time: 196.5 msec MV Margarito. Peak: Tissue Doppler E' Lateral Velocity: 0.05 m/s E/E': 12.91 Aortic Valve Peak Velocity: 1.98 m/s Mean Velocity: 1.31 m/s Peak Gradient: 15.72 mmHg Mean Gradient: 8.02 mmHg AV Area (continuity): 1.62 cm^2 AV VTI: 40.66 cm AV DVI: 0.45 LVOT Peak Velocity: 0.86 m/s Peak Gradient: 2.97 mmHg Mean Velocity: 0.61 m/s Mean Gradient: 1.66 mmHg LVOT Diameter: 2.13 cm LVOT VTI: 18.45 cm LVOT Area: 3.56 cm^2 LVOT SV:65.71 ml LVOT CO: 4.67 l/min LVOT CI: 2.62 l/min/m^2 RVOT RVOT VTI (PW): 21.54 cm Tricuspid Valve Estimated RAP: 3 mmHg TR Velocity: 2.39 m/s TR Gradient: 22.76 mmHg Pulmonic Valve Estimated PASP: 25.76 mmHg Performing Organization Address City/[facility] Phone Number [facility] MKCKESSON CPACS HLA TYPING CI (03/01/2018 10:06 AM CDT) HLA-A AG1 31 [facility] HLA TESTING HLA-A AG2 33 [facility] HLA TESTING HLA-B AG1 65 [facility] HLA TESTING HLA-B AG2 51 [facility] HLA TESTING HLA-C AG1 8 [facility] HLA TESTING HLA-C AG2 8 [facility] HLA TESTING HLA-B BW1 6 [facility] HLA TESTING HLA-B BW2 4 [facility] HLA TESTING HLA-AG Notes [facility] HLA TESTING HLA-AG Report Comments [facility] HLA TESTING Specimen Blood Performing Organization Address City/[facility] Phone Number [facility] HLA TESTING [facility] [place], [place]: [place] [address] [id number], CLIA#[id number] CAP#[id number] UNOS#[id number] [facility] HLA TESTING [facility] [place], MS: [id number] [place] [address] HLA TYPING CII (03/01/2018 9:49 AM CDT) HLA-DR AG1 4 [facility] HLA TESTING HLA-DR AG2 4 [facility] HLA TESTING HLA-DR AG3-1 [facility] HLA TESTING HLA-DR AG3-2 [facility] HLA TESTING HLA-DR AG4-1 53 [facility] HLA TESTING HLA-DR AG4-2 53 [facility] HLA TESTING HLA-DR AG5-1 [facility] HLA TESTING HLA-DR AG5-2 [facility] HLA TESTING HLA-DQA1 AG 1-1 03 [facility] HLA TESTING HLA-DQA1 AG 1-2 03 [facility] HLA TESTING HLA-DQB1 AG 1-1 3 [facility] HLA TESTING HLA-DQB1 AG 1-2 3 [facility] HLA TESTING HLA-DPA1 AG 1-1 01 [facility] HLA TESTING HLA-DPA1 AG 1-2 01 [facility] HLA TESTING HLA-DPB1 AG 1-1 04:02 [facility] HLA TESTING HLA-DPB1 AG 1-2 04:02 [facility] HLA TESTING HLA-AG Notes [facility] HLA TESTING HLA-AG Report Comments [facility] HLA TESTING Specimen Blood Performing Organization Address City/[facility] Phone Number [facility] HLA TESTING [facility] [address], [place]: [place] [address] [id number], CLIA#[id number] CAP#[id number] UNOS#[id number] [facility] HLA TESTING [facility] [address], [place]: [id number] [place] [address] FLOW PRA CLASS II WITH REFLEX TO ANTIBODY SPECIFICITY (03/01/2018 9:49 AM CDT) Flow Class II Percent Positive 0 [facility] HLA TESTING Flow Class Report Comments [facility] HLA TESTING Specimen Blood Performing Organization Address City/[facility] Phone Number [facility] HLA TESTING [facility] [place], [place]: [place] [address] [id number], CLIA#[id number] CAP#[id number] UNOS#[id number] [facility] HLA TESTING [facility] [address], MS: [id number] [place] [address] FLOW PRA CLASS I WITH REFLEX TO ANTIBODY SPECIFICITY (03/01/2018 9:49 AM CDT) Flow Class I Percent Positive 0 [facility] HLA TESTING Flow Class Report Comments [facility] HLA TESTING Specimen Blood Performing Organization Address City/[facility] Phone Number [facility] HLA TESTING [facility] [place], [place]: [place] [address] [id number], CLIA#[id number] CAP#[id number] UNOS#[id number] [facility] HLA TESTING [facility] [address], MS: [id number] [place] [address] ARRYTHMIA IMPLANT REPORT - SCAN (02/19/2018 12:21 PM CDT)Only the most recent of4 resultswithin the time period is included. Narrative Performed At Magnesium (12/24/2017 12:56 PM BODY WIRER)Only the most recent of2 resultswithin the time period is included. Magnesium 1.9 1.6 - 2.6 mg/dL [facility] Specimen Blood Performing Organization Address City/[facility]/Zipcode Phone Number [facility] [address] [place] [address] [phone] CENTER ECG 12 lead (12/24/2017 12:16 PM BODY WIRER)Only the most recent of3 resultswithin the time period is included. Narrative Performed At Ventricular Rate 70 BPM GE MUSE Atrial Rate 70 BPM P-R Interval 246 ms QRS Duration 102 ms Q-T Interval 462 ms QTC Calculation(Bazett) 498 ms P Delphos -24 degrees R Delphos -5 degrees T Delphos 109 degrees Atrial-paced rhythm with prolonged AV conduction Nonspecific ST and T wave abnormality Prolonged QT Abnormal ECG When compared with ECG of 06-Dec-2017 Atrial paced rhythm is new Confirmed by Rosalba CLEMENTS BASANT ([id number]) on 12/25/2017 4:55:38 PM Procedure Note Interface, External Ris In - 12/25/2017 4:55 PM BODY WIRER Ventricular Rate 70 BPM Atrial Rate 70 BPM P-R Interval 246 ms QRS Duration 102 ms Q-T Interval 462 ms QTC Calculation(Bazett) 498 ms P Delphos -24 degrees R Delphos -5 degrees T Delphos 109 degrees Atrial-paced rhythm with prolonged AV conduction Nonspecific ST and T wave abnormality Prolonged QT Abnormal ECG When compared with ECG of 06-Dec-2017 Atrial paced rhythm is new Confirmed by Rosalba CLEMENTS BASANT ([id number]) on 12/25/2017 4:55:38 PM Performing Organization Address City/State/Zipcode Phone Number [employer] MUSE RHYTHM STRIP - SCAN (12/10/2017 11:31 AM BODY WIRER) Narrative Performed At ECHOCARDIOGRAM REPORT - SCAN (12/06/2017 2:26 PM BODY WIRER) Narrative Performed At 2D Echo W/Doppler(CW/PW/Color) (12/05/2017 5:37 PM BODY WIRER) Ejection Fraction [facility]ART[facility] MKCKESSON CPACS Narrative Performed At Transthoracic Echocardiography Report (TTE) [facility]ART[facility] MKCKESSON [facility] Demographics Patient Name NII GARNER Date of Study12/05/2017 [id number] Gender Male Visit Number [id number] [id number] Room [id number] Number Date of Birth1950Referring Boris Quiroz Physician Age67 year(s)Actuarial Consultant Interpreting [facility] Needs to be Pre Jeff Osman MD Fellow MAURA Moya Procedure Type of Study TTE procedure:2DECHO W DOPPLER(CW/PW/COLOR) ([facility]) Indications:Known or suspected heart failure. Clinical History AICD (automatic cardioverter/defibrillator) present Medtronic - Anemia - Angina - Cardiomyopathy, ischemic - CHF (congestive heart failure) ([facility]) - Coronary artery disease - Coronary stent restenosis - Depression - Diabetes mellitus ([facility]) - GERD (gastroesophageal reflux disease) - Heart murmur - Hyperlipidemia - Hypertension - Kidney function abnormal - Loss of bladder control - Myocardial infarction Times 3 - PRATIK (obstructive sleep apnea) Does not use CPAP - SOB (shortness of breath) - Stroke ([facility]) 2004, 1999 Weakness on Left Side - TIA (transient ischemic attack) 2013 CABG X3 (1999) Height: 65 inches Weight: 68.04 kg (150 lbs) BSA: 1.75 m^2 BMI: 24.96 kg/m^2 HR: 74 bpm BP: 109/58 mmHg Summary The LV endocardium is adequately visualized. Global LV systolic function moderately reduced . LVEF by Estevez's method of disk assessment is moderately reduced (35-39%) . All of the LV segments are moderately hypokinetic . The left ventricle is chamber size (by vol index) is normal (male - LVED vol - 34-74ml/m2). Grade 1 diastolic dysfunction (impaired relaxation and low-normal LA pressure). No evidence of LV hypertrophy. The right ventricular chamber size and systolic function are within normal limits. RV pacing wire is visualized . Unable to estimate peak systolic PA pressure; inadequate TR velocity signal. Mild aortic stenosis. No significant pericardial effusion is visualized. Signature Findings Left Ventricle The LV endocardium is adequately visualized. Gl obal LV systolic function moderately reduced . LV EF by Estevez's method of disk assessment is mo derately reduced (35-39%) . Al l of the LV segments are moderately hypokinetic . Th e left ventricle is chamber size (by vol index) is normal (male - LVED vol - 34-74ml/m2). Gr shruthi 1 diastolic dysfunction (impaired relaxation an d low-normal LA pressure). No evidence of LV hypertrophy. Left AtriumLA size is normal (16-34 ml/m2) . Right VentricleThe right ventricular chamber size and systolic fu nction are within normal limits. RV pacing wire is visualized . Right Atrium RA size is normal. RA pacing wire is visualized . Aortic Valve Mild AoV cusp thickening. Mo derate AoV cusp calcification. Ao V calcification primarily involves the left- co ronary cusp(s). Mi ld aortic stenosis. Mitral Valve Mild mitral annular calcification. Mi ld MV leaflet thickening. Tr archana mitral regurgitation. Tricuspid ValveTV structure is normal. Mi ld tricuspid regurgitation. Un able to estimate peak systolic PA pressure; in adequate TR velocity signal. Pulmonic Valve PV is not well visualized; function appears normal by Doppler visualized. AortaAortic root size (SInus of Valsalva diameter) is no rmal . PericardiumNo significant pericardial effusion is visualized. IVC/SVC/PA/PV/PleuralThe inferior vena cava is not well visualized. Th e estimated RA pressure by IVC dynamics in determinate . Chambers/Structures Left Atrium LA Volume: 30.82 ml LA Area: 11.94 cm^2 LA Vol. Index: 18 ml/m^2 Left Ventricle LVIDd: 5.58 cm LVIDs: 4.15 cm LV Septum Diastolic: 1.02 cm LV PW Diastolic: 1.07 cmLV FS: 25.6 % LVEDV Estevez's:107.32 ml LVESV Estevez's:63.74 mlLVEDVI: 61 ml/m^2 LVEF Estevez's: 40.6 %LVESV I: 36 ml/m^2 LVOT Diameter: 2.04 cm Doppler/Quantitative Measurements Mitral Valve MV Peak E-Wave: 0.51 m/sMV Peak A-Wave: 0.94 m/s E/A Ratio: 0.54 Peak Gradient: 1.03 mmHg Deceleration Time: 214.6 msec MV Margarito. Peak: Tissue Doppler E' Septal Velocity: 0.04 m/sE/E': 9.53 E' Lateral Velocity: 0.05 m/s Aortic Valve Peak Velocity: 1.44 m/sMean Velocity: 1 m/s Peak Gradient: 8.24 mmHg Mean Gradient: 4.57 mmHg AV Area (continuity): 1.88 cm^2 AV VTI: 26.45 cm AV DVI: 0.58 LVOT Peak Velocity: 0.73 m/s Peak Gradient: 2.16 mmHg Mean Velocity: 0.51 m/s Mean Gradient: 1.2 mmHg LVOT Diameter: 2.04 cmLVOT VTI: 15.23 cm LVOT Area: 3.27 cm^2LVOT SV:49.75 ml LVOT CO: 3.68 l/min LVOT CI: 2.1 l/min/m^2 Tricuspid Valve TV Mean Gradient: 7.75 mmHg TR Mean Velocity: 1.28 m/s Procedure Note Interface, External Ris In - 12/06/2017 10:02 AM BODY WIRER Transthoracic Echocardiography Report (TTE) Demographics Patient Name NII GARNER Date of Study 12/05/2017 Gender Male Visit Number [id number] Race Room Number [id number] Number Date of 1950 Referring Boris Quiroz Physician Age 67 year(s) Actuarial Consultant Interpreting [facility] Needs to be Pre Physician Read Jacques Osman MD Fellow MAURA Moya Procedure Type of Study TTE procedure:2DECHO W DOPPLER(CW/PW/COLOR) ([facility]) Indications:Known or suspected heart failure. Clinical History AICD (automatic cardioverter/defibrillator) present Medtronic - Anemia - Angina - Cardiomyopathy, ischemic - CHF (congestive heart failure) ([facility]) - Coronary artery disease - Coronary stent restenosis - Depression - Diabetes mellitus ([facility]) - GERD (gastroesophageal reflux disease) - Heart murmur - Hyperlipidemia - Hypertension - Kidney function abnormal - Loss of bladder control - Myocardial infarction Times 3 - PRATIK (obstructive sleep apnea) Does not use CPAP - SOB (shortness of breath) - Stroke ([facility]) 2004, 1999 Weakness on Left Side - TIA (transient ischemic attack) 2013 CABG X3 (1999) Height: 65 inches Weight: 68.04 kg (150 lbs) BSA: 1.75 m^2 BMI: 24.96 kg/m^2 HR: 74 bpm BP: 109/58 mmHg Summary The LV endocardium is adequately visualized. Global LV systolic function moderately reduced . LVEF by Estevez's method of disk assessment is moderately reduced (35-39%) . All of the LV segments are moderately hypokinetic . The left ventricle is chamber size (by vol index) is normal (male - LVED vol - 34-74ml/m2). Grade 1 diastolic dysfunction (impaired relaxation and low-normal LA pressure). No evidence of LV hypertrophy. The right ventricular chamber size and systolic function are within normal limits. RV pacing wire is visualized . Unable to estimate peak systolic PA pressure; inadequate TR velocity signal. Mild aortic stenosis. No significant pericardial effusion is visualized. Signature Findings Left Ventricle The LV endocardium is adequately visualized. Global LV systolic function moderately reduced . LVEF by Estevez's method of disk assessment is moderately reduced (35-39%) . All of the LV segments are moderately hypokinetic . The left ventricle is chamber size (by vol index) is normal (male - LVED vol - 34-74ml/m2). Grade 1 diastolic dysfunction (impaired relaxation and low-normal LA pressure). No evidence of LV hypertrophy. Left Atrium LA size is normal (16-34 ml/m2) . Right Ventricle The right ventricular chamber size and systolic function are within normal limits. RV pacing wire is visualized . Right Atrium RA size is normal. RA pacing wire is visualized . Aortic Valve Mild AoV cusp thickening. Moderate AoV cusp calcification. AoV calcification primarily involves the left- coronary cusp(s). Mild aortic stenosis. Mitral Valve Mild mitral annular calcification. Mild MV leaflet thickening. Trace mitral regurgitation. Tricuspid Valve TV structure is normal. Mild tricuspid regurgitation. Unable to estimate peak systolic PA pressure; inadequate TR velocity signal. Pulmonic Valve PV is not well visualized; function appears normal by Doppler visualized. Aorta Aortic root size (SInus of Valsalva diameter) is normal . Pericardium No significant pericardial effusion is visualized. IVC/SVC/PA/PV/Pleural The inferior vena cava is not well visualized. The estimated RA pressure by IVC dynamics indeterminate . Chambers/Structures Left Atrium LA Volume: 30.82 ml LA Area: 11.94 cm^2 LA Vol. Index: 18 ml/m^2 Left Ventricle LVIDd: 5.58 cm LVIDs: 4.15 cm LV Septum Diastolic: 1.02 cm LV PW Diastolic: 1.07 cm LV FS: 25.6 % LVEDV Estevez's:107.32 ml LVESV Estevez's:63.74 ml LVEDVI: 61 ml/m^2 LVEF Estevez's: 40.6 % LVESVI: 36 ml/m^2 LVOT Diameter: 2.04 cm Doppler/Quantitative Measurements Mitral Valve MV Peak E-Wave: 0.51 m/s MV Peak A-Wave: 0.94 m/s E/A Ratio: 0.54 Peak Gradient: 1.03 mmHg Deceleration Time: 214.6 msec MV Margarito. Peak: Tissue Doppler E' Septal Velocity: 0.04 m/s E/E': 9.53 E' Lateral Velocity: 0.05 m/s Aortic Valve Peak Velocity: 1.44 m/s Mean Velocity: 1 m/s Peak Gradient: 8.24 mmHg Mean Gradient: 4.57 mmHg AV Area (continuity): 1.88 cm^2 AV VTI: 26.45 cm AV DVI: 0.58 LVOT Peak Velocity: 0.73 m/s Peak Gradient: 2.16 mmHg Mean Velocity: 0.51 m/s Mean Gradient: 1.2 mmHg LVOT Diameter: 2.04 cm LVOT VTI: 15.23 cm LVOT Area: 3.27 cm^2 LVOT SV:49.75 ml LVOT CO: 3.68 l/min LVOT CI: 2.1 l/min/m^2 Tricuspid Valve TV Mean Gradient: 7.75 mmHg TR Mean Velocity: 1.28 m/s Performing Organization Address City/[facility] Phone Number [facility] MKCKESSON CPACS Troponin I (12/04/2017 6:34 PM BODY WIRER)Only the most recent of3 resultswithin the time period is included. Troponin I 0.22 (HH) 0.00 - 0.03 ng/mL [facility] Specimen Blood - Arm, Left Narrative Performed At [facility] Troponin I (TnI) levels must be interpreted in the context of the presenting symptoms and the clinical findings. Elevated TnI levels indicate myocardial damage, but are not specific for ischemic heart disease. Elevated TnI levels are seen in patients with other cardiac conditions (including myocarditis and congestive heart failure), and slight TnI elevations occur in patients with other conditions, including sepsis, renal failure, acidosis, acute neurological disease, and persistent tachyarrhythmia. Performing Organization Address [facility] Phone Number [address] [address] [place] Glucose (12/04/2017 11:21 AM BODY WIRER) Glucose 572 (HH) 70 - 105 mg/dL [facility] Specimen Blood - Arm, Left Performing Organization Address [facility] Phone Number [address] [address] [place] ED ECG Interpretation (12/04/2017 12:41 AM BODY WIRER) Narrative Performed At Vargas Briggs MD 12/04/2017 12:41 AM ECG/EKG Interpretation Date/Time: 12/03/2017 8:22 PM Performed by: ZOFIA WILLETT Authorized by: ZOFIA WILLETT The ECG was interpreted by ED physician. This ECG was not compared with previous ECG(s).The ECG is interpreted as paced. Rate is normal rate. Conduction: conduction normal. ST segments abnormal. T waves abnormal. [place]phos is normal. Other findings: no other findings. Clinical Impression: non-specific ECG and abnormal ECG PT/PTT (12/03/2017 9:15 PM BODY WIRER) Protime 13.3 11.7 - 14.7 seconds [facility] INR 1.0 <=5.9 [facility] PTT 29.1 22.5 - 36.0 seconds [facility] Specimen Blood - Line, Venous Narrative Performed At [facility] RECOMMENDED COUMADIN/WARFARIN INR THERAPY RANGES STANDARD DOSE: 2.0 - 3.0 Includes: PROPHYLAXIS for venous thrombosis, systemic embolization; TREATMENT for venous thrombosis and/or pulmonary embolus. HIGH RISK: Target INR is 2.5-3.5 for patients with mechanical heart valves. Performing Organization Address City/State/Zipcode Phone Number [place] [phone] [place] [address] CENTER Creatine Kinase (CK), Total and MB (12/03/2017 9:15 PM BODY WIRER) Total CK 60 29 - 200 U/L [facility] CK-MB 4.4 0.0 - 6.6 ng/mL [facility] MB Relative Index 7.3 % [facility] Specimen Blood - Line, Venous Narrative Performed At CK-MB Reference Range: [facility] <6.7Normal 6.7-10.0Borderline >10.0 Abnormal Performing Organization Address City/[facility] Phone Number [address] [address] CENTER XR chest 2 views (12/03/2017 2:23 PM BODY WIRER) Narrative Performed At FINAL REPORT [facility] Chest, PA and lateral. History: Chest pain. Comparison: 06/05/2014. Discussion: Left AICD present. Mild cardiomegaly. The lungs are clear without evidence of consolidation or effusion.There are no acute osseous abnormalities. The soft tissues are unremarkable. IMPRESSION: No acute cardiopulmonary abnormality. Signed: Rakesh Rainey MD Report Verified Date/Time:12/03/2017 14:26:40 Reading Location: [address] Radiology Reading Room Procedure Note Interface, External Ris In - 12/03/2017 2:28 PM BODY WIRER FINAL REPORT Chest, PA and lateral. History: Chest pain. Comparison: 06/05/2014. Discussion: Left AICD present. Mild cardiomegaly. The lungs are clear without evidence of consolidation or effusion. There are no acute osseous abnormalities. The soft tissues are unremarkable. IMPRESSION: No acute cardiopulmonary abnormality. Signed: Rakesh Rainey MD Report Verified Date/Time: 12/03/2017 14:26:40 Reading Location: [address] Radiology Reading Room Performing Organization Address City/State/Zipcode Phone Number GE RIS FLOW PRA CLASS I AND II (10/12/2017 3:35 PM BODY WIRER) Date of Serum [id number] [facility] Serum# [id number] [facility] Flow PRA Class I and II See Scanned Report [facility] Specimen Blood Narrative Performed At Performing Organization Address City/State/Zipcode Phone Number [facility] [place] [address] Medicine, [facility] [place], [place]:BCM 504 ECHOCARDIOGRAM REPORT - SCAN (10/11/2017 11:24 AM BODY WIRER) Narrative Performed At 2D Echo W/Doppler(CW/PW/Color) (10/10/2017 2:13 PM BODY WIRER) Ejection Fraction [facility] Narrative Performed At Transthoracic Echocardiography Report (TTE) [facility]ART[facility] IActionableESSON [facility] Demographics Patient Name GARNER,Date of Study10/10/2017 NII [id number] Gender Male Visit Number [id number] Race [id number] m Number Number Date of Birth1950 Referring PhysicianBoris Quiroz Age67 year(s) SonographerDorita Jefferson Interpreting Physician FrankMD Fellow MAURA Pepper Procedure Type of Study TTE procedure:DEFINITY CONTRAST , 2DECHO W DOPPLER(CW/PW/COLOR) (Routine) Indications:Known or suspected heart failure. Clinical History He has a history of HTN, HLD, DM, CAD (PCI), iCMP (ICD), AF, and CVA. He is an outpatient being evaluated for follow up of known heart failure. Contrast Medium: Definity. Amount - 2 ml Height: 65 inches Weight: 72.57 kg (160 lbs) BSA: 1.8 m^2 BMI: 26.63 kg/m^2 HR: 71 bpm BP: 136/66 mmHg Summary Left ventricular wall thickness is normal. Left ventricular size is severely enlarged. Left ventricular systolic function is moderately reduced (EF 35-40%). The following segment(s) is/are akinetic: inferolateral. The following segment(s) is/are hypokinetic: inferior. All other segments are juan manuel normally. Left ventricular diastolic function is pseudonormal (grade 2 diastolic dysfunction). Right ventricular size is mildly enlarged. Right ventricular function is moderately reduced. Right ventricular systolic pressure is estimated to be 30 -35mmHg. Pacemaker lead is seen in the right ventricle. No pericardial effusion is present. Signature Findings Technical Quality: Technically adequate exam. Rhythm/BPSinus rhythm. Left Ventricle Left ventricular wall thickness is normal. Left ve ntricular size is severely enlarged. Left ve ntricular systolic function is moderately reduced (E F 35-40%). The following segment(s) is/are ak inetic: inferolateral. The following segment(s) is /are hypokinetic: inferior. All other segments ar e juan manuel normally. Left ventricular di astolic function is pseudonormal (grade 2 di astolic dysfunction). Left AtriumLeft atrial size is mildly enlarged. Right VentricleRight ventricular size is mildly enlarged. Right ve ntricular function is moderately reduced. Right ve ntricular systolic pressure is estimated to be 30 -3 5mmHg. Pacemaker lead is seen in the right ve ntricle. Right Atrium Right atrial size is normal. Pacemaker lead is seen in the right atrium. Atrial SeptumNormal interatrial septum by available views. Aortic Valve Aortic valve is notable for mild to moderate ca lcification. No aortic stenosis or regurgitation. Mitral Valve Mitral valve is notable for mild to moderate an nular calcification. No mitral stenosis or re gurgitation. Tricuspid ValveTricuspid valve is normal in appearance. Trace tr icuspid regurgitation. No tricuspid stenosis. Pulmonic Valve Pulmonic valve is not visualized. No pulmonic st enosis or regurgitation. AortaAortic root size is normal. Proximal ascending ao rtic size is normal. PericardiumNo pericardial effusion is present. IVC/SVC/PA/PV/PleuralThe estimated RA pressure by IVC dynamics 5-10mmHg . Chambers/Structures Left Atrium LA Dimension: 4.97 cmLA Area: 21.41 cm^2 LA Volume: 64.05 ml LA Vol. Index: 36 ml/m^2 Left Ventricle LVIDd: 4.94 cm LVIDs: 4.19 cm LV Septum Diastolic: 0.88 cm LV PW Diastolic: 0.93 cmLV FS: 15.2 % LVEDV Estevez's:178.1 ml LVESV Estevez's:102.71 ml LVEDVI: 99 ml/m^2 LVEF Estevez's: 42.3 %LVESV I: 57 ml/m^2 LVOT Diameter: 2.09 cm Right Atrium RA Vol. (Sngl Plane): 30.38 ml Right Ventricle RV Diast Dim.: 3.81 cm TAPSE: 1.21 cm RVOT Diameter: 3.76 cm Aorta Ascending Aorta: 3.03 cm Vena Cava IVC Expirium: 1.38 cm Doppler/Quantitative Measurements Mitral Valve MV Peak E-Wave: 0.77 m/s MV Peak A-Wave: 0.94 m/s E/A Ratio: 0.81 Peak Gradient: 2.36 mmHg MV Margarito. Peak: Tissue Doppler E' Septal Velocity: 0.04 m/s E/E': 16.54 E' Lateral Velocity: 0.05 m/s LVOT Peak Velocity: 0.74 m/s Peak Gradient: 2.2 mmHg Mean Velocity: 0.47 m/s Mean Gradient: 1.04 mmHg LVOT Diameter: 2.09 cmLVOT VTI: 14.28 cm LVOT Area: 3.43 cm^2LVOT SV:48.97 ml LVOT CO: 3.48 l/min LVOT CI: 1.93 l/min/m^2 Tricuspid Valve TR Velocity: 2.37 m/s TR Gradient: 22.45 mmHg Procedure Note Interface, External Ris In - 10/11/2017 10:37 AM B[facility]ER Transthoracic Echocardiography Report (TTE) Demographics Patient Name GARNER, Date of Study 10/10/2017 NII Gender Male Visit Number [id number] Race Room Number Number Date of 1950 Referring Physician Boris Quiroz. Boris Quiroz Age 67 year(s) Actuarial Consultant Dorita Jefferson Interpreting Jacques Osman, Physician Fellow MAURA Pepper Procedure Type of Study TTE procedure:DEFINITY CONTRAST , 2DECHO W DOPPLER(CW/PW/COLOR) (Routine) Indications:Known or suspected heart failure. Clinical History He has a history of HTN, HLD, DM, CAD (PCI), iCMP (ICD), AF, and CVA. He is an outpatient being evaluated for follow up of known heart failure. Contrast Medium: Definity. Amount - 2 ml Height: 65 inches Weight: 72.57 kg (160 lbs) BSA: 1.8 m^2 BMI: 26.63 kg/m^2 HR: 71 bpm BP: 136/66 mmHg Summary Left ventricular wall thickness is normal. Left ventricular size is severely enlarged. Left ventricular systolic function is moderately reduced (EF 35-40%). The following segment(s) is/are akinetic: inferolateral. The following segment(s) is/are hypokinetic: inferior. All other segments are juan manuel normally. Left ventricular diastolic function is pseudonormal (grade 2 diastolic dysfunction). Right ventricular size is mildly enlarged. Right ventricular function is moderately reduced. Right ventricular systolic pressure is estimated to be 30 -35mmHg. Pacemaker lead is seen in the right ventricle. No pericardial effusion is present. Signature Findings Technical Quality: Technically adequate exam. Rhythm/BP Sinus rhythm. Left Ventricle Left ventricular wall thickness is normal. Left ventricular size is severely enlarged. Left ventricular systolic function is moderately reduced (EF 35-40%). The following segment(s) is/are akinetic: inferolateral. The following segment(s) is/are hypokinetic: inferior. All other segments are juan manuel normally. Left ventricular diastolic function is pseudonormal (grade 2 diastolic dysfunction). Left Atrium Left atrial size is mildly enlarged. Right Ventricle Right ventricular size is mildly enlarged. Right ventricular function is moderately reduced. Right ventricular systolic pressure is estimated to be 30 -35mmHg. Pacemaker lead is seen in the right ventricle. Right Atrium Right atrial size is normal. Pacemaker lead is seen in the right atrium. Atrial Septum Normal interatrial septum by available views. Aortic Valve Aortic valve is notable for mild to moderate calcification. No aortic stenosis or regurgitation. Mitral Valve Mitral valve is notable for mild to moderate annular calcification. No mitral stenosis or regurgitation. Tricuspid Valve Tricuspid valve is normal in appearance. Trace tricuspid regurgitation. No tricuspid stenosis. Pulmonic Valve Pulmonic valve is not visualized. No pulmonic stenosis or regurgitation. Aorta Aortic root size is normal. Proximal ascending aortic size is normal. Pericardium No pericardial effusion is present. IVC/SVC/PA/PV/Pleural The estimated RA pressure by IVC dynamics 5-10mmHg . Chambers/Structures Left Atrium LA Dimension: 4.97 cm LA Area: 21.41 cm^2 LA Volume: 64.05 ml LA Vol. Index: 36 ml/m^2 Left Ventricle LVIDd: 4.94 cm LVIDs: 4.19 cm LV Septum Diastolic: 0.88 cm LV PW Diastolic: 0.93 cm LV FS: 15.2 % LVEDV Estevez's:178.1 ml LVESV Estevez's:102.71 ml LVEDVI: 99 ml/m^2 LVEF Estevez's: 42.3 % LVESVI: 57 ml/m^2 LVOT Diameter: 2.09 cm Right Atrium RA Vol. (Sngl Plane): 30.38 ml Right Ventricle RV Diast Dim.: 3.81 cm TAPSE: 1.21 cm RVOT Diameter: 3.76 cm Aorta Ascending Aorta: 3.03 cm Vena Cava IVC Expirium: 1.38 cm Doppler/Quantitative Measurements Mitral Valve MV Peak E-Wave: 0.77 m/s MV Peak A-Wave: 0.94 m/s E/A Ratio: 0.81 Peak Gradient: 2.36 mmHg MV Margarito. Peak: Tissue Doppler E' Septal Velocity: 0.04 m/s E/E': 16.54 E' Lateral Velocity: 0.05 m/s LVOT Peak Velocity: 0.74 m/s Peak Gradient: 2.2 mmHg Mean Velocity: 0.47 m/s Mean Gradient: 1.04 mmHg LVOT Diameter: 2.09 cm LVOT VTI: 14.28 cm LVOT Area: 3.43 cm^2 LVOT SV:48.97 ml LVOT CO: 3.48 l/min LVOT CI: 1.93 l/min/m^2 Tricuspid Valve TR Velocity: 2.37 m/s TR Gradient: 22.45 mmHg Performing Organization Address City/State/Zipcode Phone Number [facility] after 09/25/2017 Insurance Payer Benefit Plan / Group Subscriber ID Type Phone Address MEDICARE MEDICARE A B xxxxxxxxxxx Medicare AET[employer] - MGD CARE AET[employer] INDEMNITY NON CONTR xxxxxxxxx Comm Advance Directives For more information, please contact:[address] [phone] Code Status Date Activated Date Inactivated Comments Full Code 07/24/2018 9:21 AM 07/24/2018 6:28 PM This code status was determined by: Patient Full Code 12/04/2017 8:31 AM 12/07/2017 3:09 PM This code status was determined by: Patient Full Code 05/03/2017 5:54 AM 05/03/2017 5:11 PM This code status was determined by: Patient Full Code 10/19/2016 6:58 AM 10/19/2016 3:31 PM This code status was determined by: Patient Full Code 06/14/2015 5:32 AM 06/14/2015 5:06 PM This code status was determined by: Patient
--- OUTSIDE RECORDS SUMMARY | 2018-09-26 10:56 | XMS REPORT ---
:1950 Author Organization [facility] Address [address] [place] [address] [address]. [address] [place] [address] Care Team Providers Name Role Phone RIN BRASWELL Unavailable Unavailable RULA PRATER Unavailable Unavailable ZOFIA WILLETT Unavailable Unavailable KUSHAL TATE Unavailable Unavailable Problems This patient has no known problems. Allergies, Adverse Reactions, Alerts This patient has no known allergies or adverse reactions. Medications This patient has no known medications. Results Test Description Test Time Test Comments Text Results Atomic Results Result Comments HEMOGLOBIN A1C 2018-09-20 13:29:00 Test Item Value Reference Range Comments HEMOGLOBIN A1C (BEAKER) (test iwmc=352) 7.9 % 4.3-6.1 B-TYPE NATRIURETIC FACTOR (BNP)2018-09-20 11:39:00 Test Item Value Reference Range Comments B-TYPE NATRIURETIC PEPTIDE (BEAKER) (test 237 pg/mL 0-100 pogc=532) LIPID [id number] 11:35:00 Test Item Value Reference Range Comments TRIGLYCERIDES (BEAKER) (test klsa=538) 291 mg/dL CHOLESTEROL (BEAKER) (test bdew=609) 166 mg/dL HDL CHOLESTEROL (BEAKER) (test wwfn=427) 32 mg/dL LDL CHOLESTEROL CALCULATED (BEAKER) (test 76 mg/dL ghng=591) Triglyceride Reference Range: Low Risk <150 Borderline 150- 199 High Risk 200-499 Very High Risk >=500Cholesterol Reference Range: Low Risk <200 Borderline 200-239 High Risk > 240HDL Cholesterol Reference Range: Low Risk >=60 High Risk <40LDL Cholesterol Reference Range: Optimal <100 Near Optimal 100-129 Borderline 130-159 High 160-189 Very High >=190BASIC METABOLIC [id number] 11:35:00 Test Item Value Reference Range Comments SODIUM (BEAKER) (test 136 meq/L 136-145 lfxy=056) POTASSIUM (BEAKER) (test 4.2 meq/L 3.5-5.1 gxep=539) CHLORIDE (BEAKER) (test 104 meq/L 98-107 lvut=141) CO2 (BEAKER) (test 21 meq/L 22-29 rpvj=656) BLOOD UREA NITROGEN 36 mg/dL 7-21 (BEAKER) (test pgbk=426) CREATININE (BEAKER) (test 1.87 mg/dL 0.57-1.25 myoo=562) GLUCOSE RANDOM (BEAKER) 105 mg/dL 70-105 (test dgjn=250) CALCIUM (BEAKER) (test 9.7 mg/dL 8.4-10.2 uaxz=918) EGFR (BEAKER) (test 36 mL/min/1.73 sq m ESTIMATED GFR IS NOT hous=7623) ACCURATE CREATININE CLEARANCE IN PREDICTING GLOMERULAR FILTRATION RATE. ESTIMATED GFR IS NOT APPLICABLE FOR DIALYSIS PATIENTS. HEPATIC FUNCTION [id number] 11:35:00 Test Item Value Reference Range Comments TOTAL PROTEIN (BEAKER) (test wqnx=206) 7.6 gm/dL 6.0-8.3 ALBUMIN (BEAKER) (test iitx=7997) 4.5 g/dL 3.5-5.0 BILIRUBIN TOTAL (BEAKER) (test vkzv=586) 0.8 mg/dL 0.2-1.2 BILIRUBIN DIRECT (BEAKER) (test uoau=408) 0.3 mg/dL 0.1-0.5 ALKALINE PHOSPHATASE (BEAKER) (test bniv=622) 74 U/L 40-150 AST (SGOT) (BEAKER) (test rono=358) 18 U/L 5-34 ALT (SGPT) (BEAKER) (test jkde=115) 20 U/L 6-55 CBC W/PLT COUNT & AUTO [id number] 10:44:00 Test Item Value Reference Range Comments WHITE BLOOD CELL COUNT (BEAKER) (test hctd=492) 6.4 K/ L 3.5-10.5 RED BLOOD CELL COUNT (BEAKER) (test gsjj=462) 4.97 M/ L 4.63-6.08 HEMOGLOBIN (BEAKER) (test uect=197) 14.4 GM/DL 13.7-17.5 HEMATOCRIT (BEAKER) (test uqfh=284) 42.3 % 40.1-51.0 MEAN CORPUSCULAR VOLUME (BEAKER) (test vpnx=681) 85.1 fL 79.0-92.2 MEAN CORPUSCULAR HEMOGLOBIN (BEAKER) (test 29.0 pg 25.7-32.2 zymu=819) MEAN CORPUSCULAR HEMOGLOBIN CONC (BEAKER) (test 34.0 GM/DL 32.3-36.5 imyx=722) RED CELL DISTRIBUTION WIDTH (BEAKER) (test 14.5 % 11.6-14.4 ibmx=530) PLATELET COUNT (BEAKER) (test rnbr=170) 128 K/CU MM 150-450 MEAN PLATELET VOLUME (BEAKER) (test ygkx=592) 13.1 fL 9.4-12.4 NUCLEATED RED BLOOD CELLS (BEAKER) (test 0 /100 WBC 0-0 zxpb=896) NEUTROPHILS RELATIVE PERCENT (BEAKER) (test 57 % ykuo=970) LYMPHOCYTES RELATIVE PERCENT (BEAKER) (test 28 % gkvr=419) MONOCYTES RELATIVE PERCENT (BEAKER) (test 8 % uhaa=866) EOSINOPHILS RELATIVE PERCENT (BEAKER) (test 5 % jjtx=402) BASOPHILS RELATIVE PERCENT (BEAKER) (test 1 % jnyj=332) NEUTROPHILS ABSOLUTE COUNT (BEAKER) (test 3.66 K/ L 1.78-5.38 zamc=723) LYMPHOCYTES ABSOLUTE COUNT (BEAKER) (test 1.79 K/ L 1.32-3.57 zulv=180) MONOCYTES ABSOLUTE COUNT (BEAKER) (test 0.54 K/ L 0.30-0.82 euwd=618) EOSINOPHILS ABSOLUTE COUNT (BEAKER) (test 0.34 K/ L 0.04-0.54 bdgh=521) BASOPHILS ABSOLUTE COUNT (BEAKER) (test 0.06 K/ L 0.01-0.08 wahu=288) IMMATURE GRANULOCYTES-RELATIVE PERCENT (BEAKER) 1 % 0-1 (test tood=9711) POCT-GLUCOSE [id number] 12:52:00 Test Item Value Reference Range Comments POC-GLUCOSE METER (BEAKER) 48 mg/dL 70-[address] [facility] [address] [facility] (test hkmo=7750) [facility] [address] BASIC METABOLIC [id number] 10:14:00 Test Item Value Reference Range Comments SODIUM (BEAKER) (test 139 meq/L 136-145 oxji=090) POTASSIUM (BEAKER) (test 3.9 meq/L 3.5-5.1 linm=326) CHLORIDE (BEAKER) (test 106 meq/L 98-107 ecmr=172) CO2 (BEAKER) (test 25 meq/L 22-29 vhuj=559) BLOOD UREA NITROGEN 24 mg/dL 7-21 (BEAKER) (test avgv=689) CREATININE (BEAKER) (test 1.71 mg/dL 0.57-1.25 onep=224) GLUCOSE RANDOM (BEAKER) 91 mg/dL 70-105 (test dhtw=936) CALCIUM (BEAKER) (test 9.6 mg/dL 8.4-10.2 nnvd=789) EGFR (BEAKER) (test 40 mL/min/1.73 sq m ESTIMATED GFR IS NOT perf=7001) ACCURATE CREATININE CLEARANCE IN PREDICTING GLOMERULAR FILTRATION RATE. ESTIMATED GFR IS NOT APPLICABLE FOR DIALYSIS PATIENTS. CBC W/PLT COUNT & AUTO [id number] 09:53:00 Test Item Value Reference Range Comments WHITE BLOOD CELL COUNT (BEAKER) (test psgo=959) 5.7 K/ L 3.5-10.5 RED BLOOD CELL COUNT (BEAKER) (test tese=614) 4.35 M/ L 4.63-6.08 HEMOGLOBIN (BEAKER) (test jyxk=931) 12.3 GM/DL 13.7-17.5 HEMATOCRIT (BEAKER) (test mjpm=028) 37.6 % 40.1-51.0 MEAN CORPUSCULAR VOLUME (BEAKER) (test wgyg=872) 86.4 fL 79.0-92.2 MEAN CORPUSCULAR HEMOGLOBIN (BEAKER) (test 28.3 pg 25.7-32.2 iotw=074) MEAN CORPUSCULAR HEMOGLOBIN CONC (BEAKER) (test 32.7 GM/DL 32.3-36.5 dkwk=784) RED CELL DISTRIBUTION WIDTH (BEAKER) (test 13.8 % 11.6-14.4 zmwd=831) PLATELET COUNT (BEAKER) (test fgeq=741) 128 K/CU MM 150-450 MEAN PLATELET VOLUME (BEAKER) (test pzzo=448) 11.7 fL 9.4-12.4 NUCLEATED RED BLOOD CELLS (BEAKER) (test 0 /100 WBC 0-0 rigg=005) NEUTROPHILS RELATIVE PERCENT (BEAKER) (test 64 % dsrh=803) LYMPHOCYTES RELATIVE PERCENT (BEAKER) (test 23 % aorj=476) MONOCYTES RELATIVE PERCENT (BEAKER) (test 8 % zyxk=376) EOSINOPHILS RELATIVE PERCENT (BEAKER) (test 5 % imzx=456) BASOPHILS RELATIVE PERCENT (BEAKER) (test 1 % mrvp=093) NEUTROPHILS ABSOLUTE COUNT (BEAKER) (test 3.66 K/ L 1.78-5.38 nanc=573) LYMPHOCYTES ABSOLUTE COUNT (BEAKER) (test 1.30 K/ L 1.32-3.57 blzg=060) MONOCYTES ABSOLUTE COUNT (BEAKER) (test 0.43 K/ L 0.30-0.82 rikd=497) EOSINOPHILS ABSOLUTE COUNT (BEAKER) (test 0.27 K/ L 0.04-0.54 dpae=697) BASOPHILS ABSOLUTE COUNT (BEAKER) (test 0.05 K/ L 0.01-0.08 bkkn=102) IMMATURE GRANULOCYTES-RELATIVE PERCENT (BEAKER) 1 % 0-1 (test xcpg=8021) HEMOGLOBIN [id number] 10:34:00 Test Item Value Reference Range Comments HEMOGLOBIN A1C (BEAKER) (test ygko=573) 8.6 % 4.3-6.1 BASIC METABOLIC [id number] 09:32:00 Test Item Value Reference Range Comments SODIUM (BEAKER) (test 135 meq/L 136-145 labu=606) POTASSIUM (BEAKER) (test 3.9 meq/L 3.5-5.1 hjjl=544) CHLORIDE (BEAKER) (test 100 meq/L 98-107 jakd=266) CO2 (BEAKER) (test 24 meq/L 22-29 fniu=808) BLOOD UREA NITROGEN 29 mg/dL 7-21 (BEAKER) (test mpef=062) CREATININE (BEAKER) (test 1.51 mg/dL 0.57-1.25 uqyi=371) GLUCOSE RANDOM (BEAKER) 240 mg/dL 70-105 (test kvik=303) CALCIUM (BEAKER) (test 9.7 mg/dL 8.4-10.2 ojwt=431) EGFR (BEAKER) (test 46 mL/min/1.73 sq m ESTIMATED GFR IS NOT rbof=6584) ACCURATE CREATININE CLEARANCE IN PREDICTING GLOMERULAR FILTRATION RATE. ESTIMATED GFR IS NOT APPLICABLE FOR DIALYSIS PATIENTS. B-TYPE NATRIURETIC FACTOR (BNP)2018-05-03 09:31:00 Test Item Value Reference Range Comments B-TYPE NATRIURETIC PEPTIDE (BEAKER) (test 294 pg/mL 0-100 kxlf=915) CBC W/PLT COUNT & AUTO [id number] 09:01:00 Test Item Value Reference Range Comments WHITE BLOOD CELL COUNT (BEAKER) (test iyyg=755) 6.9 K/ L 3.5-10.5 RED BLOOD CELL COUNT (BEAKER) (test twcs=477) 4.38 M/ L 4.63-6.08 HEMOGLOBIN (BEAKER) (test egfq=639) 12.4 GM/DL 13.7-17.5 HEMATOCRIT (BEAKER) (test nsqk=465) 37.1 % 40.1-51.0 MEAN CORPUSCULAR VOLUME (BEAKER) (test zgoj=530) 84.7 fL 79.0-92.2 MEAN CORPUSCULAR HEMOGLOBIN (BEAKER) (test 28.3 pg 25.7-32.2 xhoy=303) MEAN CORPUSCULAR HEMOGLOBIN CONC (BEAKER) (test 33.4 GM/DL 32.3-36.5 jbul=367) RED CELL DISTRIBUTION WIDTH (BEAKER) (test 14.5 % 11.6-14.4 whah=222) PLATELET COUNT (BEAKER) (test wair=883) 151 K/CU MM 150-450 MEAN PLATELET VOLUME (BEAKER) (test reiz=947) 11.5 fL 9.4-12.4 NUCLEATED RED BLOOD CELLS (BEAKER) (test 0 /100 WBC 0-0 zbib=512) NEUTROPHILS RELATIVE PERCENT (BEAKER) (test 63 % xbvc=379) LYMPHOCYTES RELATIVE PERCENT (BEAKER) (test 23 % ztsq=352) MONOCYTES RELATIVE PERCENT (BEAKER) (test 8 % ngis=077) EOSINOPHILS RELATIVE PERCENT (BEAKER) (test 5 % xldr=888) BASOPHILS RELATIVE PERCENT (BEAKER) (test 1 % zacz=840) NEUTROPHILS ABSOLUTE COUNT (BEAKER) (test 4.33 K/ L 1.78-5.38 usph=497) LYMPHOCYTES ABSOLUTE COUNT (BEAKER) (test 1.61 K/ L 1.32-3.57 uwcw=087) MONOCYTES ABSOLUTE COUNT (BEAKER) (test 0.55 K/ L 0.30-0.82 jwbh=592) EOSINOPHILS ABSOLUTE COUNT (BEAKER) (test 0.32 K/ L 0.04-0.54 vvie=113) BASOPHILS ABSOLUTE COUNT (BEAKER) (test 0.05 K/ L 0.01-0.08 htka=038) IMMATURE GRANULOCYTES-RELATIVE PERCENT (BEAKER) 0 % 0-1 (test dixu=9447) B-TYPE NATRIURETIC FACTOR (BNP)2018-03-01 10:49:00 Test Item Value Reference Range Comments B-TYPE NATRIURETIC PEPTIDE (BEAKER) (test 166 pg/mL 0-100 yswg=888) BASIC METABOLIC [id number] 10:42:00 Test Item Value Reference Range Comments SODIUM (BEAKER) (test 137 meq/L 136-145 qxlv=511) POTASSIUM (BEAKER) (test 4.1 meq/L 3.5-5.1 sfcy=235) CHLORIDE (BEAKER) (test 106 meq/L 98-107 yvmt=109) CO2 (BEAKER) (test 21 meq/L 22-29 khft=081) BLOOD UREA NITROGEN 25 mg/dL 7-21 (BEAKER) (test qhsl=378) CREATININE (BEAKER) (test 1.43 mg/dL 0.57-1.25 buvm=818) GLUCOSE RANDOM (BEAKER) 166 mg/dL 70-105 (test qdrg=399) CALCIUM (BEAKER) (test 10.2 mg/dL 8.4-10.2 ttxz=922) EGFR (BEAKER) (test 49 mL/min/1.73 sq m ESTIMATED GFR IS NOT ogjh=4677) ACCURATE CREATININE CLEARANCE IN PREDICTING GLOMERULAR FILTRATION RATE. ESTIMATED GFR IS NOT APPLICABLE FOR DIALYSIS PATIENTS. CBC W/PLT COUNT & AUTO [id number] 10:17:00 Test Item Value Reference Range Comments WHITE BLOOD CELL COUNT (BEAKER) (test yhuo=017) 7.1 K/ L 3.5-10.5 RED BLOOD CELL COUNT (BEAKER) (test ibmd=747) 4.73 M/ L 4.63-6.08 HEMOGLOBIN (BEAKER) (test ygbo=358) 13.3 GM/DL 13.7-17.5 HEMATOCRIT (BEAKER) (test dimp=094) 39.6 % 40.1-51.0 MEAN CORPUSCULAR VOLUME (BEAKER) (test wkbx=526) 83.7 fL 79.0-92.2 MEAN CORPUSCULAR HEMOGLOBIN (BEAKER) (test 28.1 pg 25.7-32.2 tifh=515) MEAN CORPUSCULAR HEMOGLOBIN CONC (BEAKER) (test 33.6 GM/DL 32.3-36.5 iupu=218) RED CELL DISTRIBUTION WIDTH (BEAKER) (test 12.5 % 11.6-14.4 ssmn=306) PLATELET COUNT (BEAKER) (test ttcs=988) 140 K/CU MM 150-450 MEAN PLATELET VOLUME (BEAKER) (test sunk=879) 11.3 fL 9.4-12.4 NUCLEATED RED BLOOD CELLS (BEAKER) (test 0 /100 WBC 0-0 oirz=890) NEUTROPHILS RELATIVE PERCENT (BEAKER) (test 60 % sxvb=464) LYMPHOCYTES RELATIVE PERCENT (BEAKER) (test 25 % ljli=019) MONOCYTES RELATIVE PERCENT (BEAKER) (test 9 % gmsq=010) EOSINOPHILS RELATIVE PERCENT (BEAKER) (test 5 % smrb=435) BASOPHILS RELATIVE PERCENT (BEAKER) (test 1 % nsyl=495) NEUTROPHILS ABSOLUTE COUNT (BEAKER) (test 4.23 K/ L 1.78-5.38 noqv=997) LYMPHOCYTES ABSOLUTE COUNT (BEAKER) (test 1.78 K/ L 1.32-3.57 vpnd=518) MONOCYTES ABSOLUTE COUNT (BEAKER) (test 0.62 K/ L 0.30-0.82 vrvr=517) EOSINOPHILS ABSOLUTE COUNT (BEAKER) (test 0.38 K/ L 0.04-0.54 nvgs=500) BASOPHILS ABSOLUTE COUNT (BEAKER) (test 0.04 K/ L 0.01-0.08 jadr=162) IMMATURE GRANULOCYTES-RELATIVE PERCENT (BEAKER) 0 % 0-1 (test mssi=5462) B-TYPE NATRIURETIC FACTOR (BNP)2018-02-07 13:44:00 Test Item Value Reference Range Comments B-TYPE NATRIURETIC PEPTIDE (BEAKER) (test 108 pg/mL 0-100 gptz=873) LIPID [id number] 13:38:00 Test Item Value Reference Range Comments TRIGLYCERIDES (BEAKER) (test imtf=571) 244 mg/dL CHOLESTEROL (BEAKER) (test fbiq=360) 265 mg/dL HDL CHOLESTEROL (BEAKER) (test pidu=199) 33 mg/dL LDL CHOLESTEROL CALCULATED (BEAKER) (test 183 mg/dL gqif=115) Triglyceride Reference Range: Low Risk <150 Borderline 150- 199 High Risk 200-499 Very High Risk >=500Cholesterol Reference Range: Low Risk <200 Borderline 200-239 High Risk > 240HDL Cholesterol Reference Range: Low Risk >=60 High Risk <40LDL Cholesterol Reference Range: Optimal <100 Near Optimal 100-129 Borderline 130-159 High 160-189 Very High >=190BASIC METABOLIC [id number] 13:38:00 Test Item Value Reference Range Comments SODIUM (BEAKER) (test 137 meq/L 136-145 rtuc=791) POTASSIUM (BEAKER) (test 4.4 meq/L 3.5-5.1 brnd=453) CHLORIDE (BEAKER) (test 106 meq/L 98-107 dxor=474) CO2 (BEAKER) (test 21 meq/L 22-29 ckgy=135) BLOOD UREA NITROGEN 43 mg/dL 7-21 (BEAKER) (test negb=976) CREATININE (BEAKER) (test 1.60 mg/dL 0.57-1.25 pxtt=251) GLUCOSE RANDOM (BEAKER) 160 mg/dL 70-105 (test uhrd=764) CALCIUM (BEAKER) (test 9.3 mg/dL 8.4-10.2 pods=196) EGFR (BEAKER) (test 43 mL/min/1.73 sq m ESTIMATED GFR IS NOT ldrg=6054) ACCURATE CREATININE CLEARANCE IN PREDICTING GLOMERULAR FILTRATION RATE. ESTIMATED GFR IS NOT APPLICABLE FOR DIALYSIS PATIENTS. HEPATIC FUNCTION [id number] 13:38:00 Test Item Value Reference Range Comments TOTAL PROTEIN (BEAKER) (test giro=407) 7.4 gm/dL 6.0-8.3 ALBUMIN (BEAKER) (test kxli=3931) 4.4 g/dL 3.5-5.0 BILIRUBIN TOTAL (BEAKER) (test uuwu=156) 0.5 mg/dL 0.2-1.2 BILIRUBIN DIRECT (BEAKER) (test yfec=455) 0.2 mg/dL 0.1-0.5 ALKALINE PHOSPHATASE (BEAKER) (test brui=840) 64 U/L 40-150 AST (SGOT) (BEAKER) (test gpwy=093) 23 U/L 5-34 ALT (SGPT) (BEAKER) (test nwmm=879) 25 U/L 6-55 CBC W/PLT COUNT & AUTO [id number] 13:07:00 Test Item Value Reference Range Comments WHITE BLOOD CELL COUNT (BEAKER) (test jdpe=616) 5.1 K/ L 3.5-10.5 RED BLOOD CELL COUNT (BEAKER) (test qpme=799) 4.41 M/ L 4.63-6.08 HEMOGLOBIN (BEAKER) (test rzve=238) 12.8 GM/DL 13.7-17.5 HEMATOCRIT (BEAKER) (test lyiy=942) 38.5 % 40.1-51.0 MEAN CORPUSCULAR VOLUME (BEAKER) (test jgeq=968) 87.3 fL 79.0-92.2 MEAN CORPUSCULAR HEMOGLOBIN (BEAKER) (test 29.0 pg 25.7-32.2 ncmz=836) MEAN CORPUSCULAR HEMOGLOBIN CONC (BEAKER) (test 33.2 GM/DL 32.3-36.5 tcxo=872) RED CELL DISTRIBUTION WIDTH (BEAKER) (test 13.2 % 11.6-14.4 uoyb=911) PLATELET COUNT (BEAKER) (test vyrz=979) 130 K/CU MM 150-450 MEAN PLATELET VOLUME (BEAKER) (test thze=989) 11.7 fL 9.4-12.4 NUCLEATED RED BLOOD CELLS (BEAKER) (test 0 /100 WBC 0-0 jfnj=597) NEUTROPHILS RELATIVE PERCENT (BEAKER) (test 61 % gfoy=173) LYMPHOCYTES RELATIVE PERCENT (BEAKER) (test 24 % bsfg=713) MONOCYTES RELATIVE PERCENT (BEAKER) (test 9 % edjm=752) EOSINOPHILS RELATIVE PERCENT (BEAKER) (test 5 % ektn=282) BASOPHILS RELATIVE PERCENT (BEAKER) (test 1 % jrma=546) NEUTROPHILS ABSOLUTE COUNT (BEAKER) (test 3.12 K/ L 1.78-5.38 wswh=413) LYMPHOCYTES ABSOLUTE COUNT (BEAKER) (test 1.23 K/ L 1.32-3.57 tope=566) MONOCYTES ABSOLUTE COUNT (BEAKER) (test 0.47 K/ L 0.30-0.82 ruqh=173) EOSINOPHILS ABSOLUTE COUNT (BEAKER) (test 0.24 K/ L 0.04-0.54 ekqt=086) BASOPHILS ABSOLUTE COUNT (BEAKER) (test 0.04 K/ L 0.01-0.08 kpot=114) IMMATURE GRANULOCYTES-RELATIVE PERCENT (BEAKER) 0 % 0-1 (test cucy=4445) B-TYPE NATRIURETIC FACTOR (BNP)2017-12-24 13:28:00 Test Item Value Reference Range Comments B-TYPE NATRIURETIC PEPTIDE (BEAKER) (test 187 pg/mL 0-100 elat=758) [id number] 13:23:00 Test Item Value Reference Range Comments MAGNESIUM (BEAKER) (test kpnm=724) 1.9 mg/dL 1.6-2.6 BASIC METABOLIC [id number] 13:23:00 Test Item Value Reference Range Comments SODIUM (BEAKER) (test 131 meq/L 136-145 otnc=461) POTASSIUM (BEAKER) (test 4.1 meq/L 3.5-5.1 pdrh=247) CHLORIDE (BEAKER) (test 100 meq/L 98-107 pnzk=423) CO2 (BEAKER) (test 21 meq/L 22-29 kznl=081) BLOOD UREA NITROGEN 20 mg/dL 7-21 (BEAKER) (test sqjd=426) CREATININE (BEAKER) (test 1.36 mg/dL 0.57-1.25 yfzq=622) GLUCOSE RANDOM (BEAKER) 258 mg/dL 70-105 (test swtx=888) CALCIUM (BEAKER) (test 9.8 mg/dL 8.4-10.2 nibt=292) EGFR (BEAKER) (test 52 mL/min/1.73 sq m ESTIMATED GFR IS NOT fjly=6377) ACCURATE CREATININE CLEARANCE IN PREDICTING GLOMERULAR FILTRATION RATE. ESTIMATED GFR IS NOT APPLICABLE FOR DIALYSIS PATIENTS. POCT-GLUCOSE [id number] 07:29:00 Test Item Value Reference Range Comments POC-GLUCOSE METER (BEAKER) 154 mg/dL 70-[address] [facility] [address] [facility] (test etzb=4001) [facility] [address] BASIC METABOLIC [id number] 06:30:00 Test Item Value Reference Range Comments SODIUM (BEAKER) (test 134 meq/L 136-145 dsbj=966) POTASSIUM (BEAKER) (test 3.9 meq/L 3.5-5.1 lgae=117) CHLORIDE (BEAKER) (test 101 meq/L 98-107 vgdb=030) CO2 (BEAKER) (test 25 meq/L 22-29 ojfk=485) BLOOD UREA NITROGEN 29 mg/dL 7-21 (BEAKER) (test vbjc=007) CREATININE (BEAKER) (test 1.32 mg/dL 0.57-1.25 lvpn=289) GLUCOSE RANDOM (BEAKER) 156 mg/dL 70-105 (test oavf=397) CALCIUM (BEAKER) (test 9.5 mg/dL 8.4-10.2 fyqh=322) EGFR (BEAKER) (test 54 mL/min/1.73 sq m ESTIMATED GFR IS NOT ewjs=7854) ACCURATE CREATININE CLEARANCE IN PREDICTING GLOMERULAR FILTRATION RATE. ESTIMATED GFR IS NOT APPLICABLE FOR DIALYSIS PATIENTS. CBC W/PLT COUNT & AUTO [id number] 06:05:00 Test Item Value Reference Range Comments WHITE BLOOD CELL COUNT (BEAKER) (test awxd=304) 6.0 K/ L 3.5-10.5 RED BLOOD CELL COUNT (BEAKER) (test hito=709) 3.86 M/ L 4.63-6.08 HEMOGLOBIN (BEAKER) (test ezir=068) 11.4 GM/DL 13.7-17.5 HEMATOCRIT (BEAKER) (test nuge=051) 32.5 % 40.1-51.0 MEAN CORPUSCULAR VOLUME (BEAKER) (test ojwn=822) 84.2 fL 79.0-92.2 MEAN CORPUSCULAR HEMOGLOBIN (BEAKER) (test 29.5 pg 25.7-32.2 lois=267) MEAN CORPUSCULAR HEMOGLOBIN CONC (BEAKER) (test 35.1 GM/DL 32.3-36.5 qzpl=056) RED CELL DISTRIBUTION WIDTH (BEAKER) (test 12.6 % 11.6-14.4 dfbr=886) PLATELET COUNT (BEAKER) (test flsw=716) 124 K/CU MM 150-450 MEAN PLATELET VOLUME (BEAKER) (test okhy=932) 10.9 fL 9.4-12.4 NUCLEATED RED BLOOD CELLS (BEAKER) (test 0 /100 WBC 0-0 mvbd=289) NEUTROPHILS RELATIVE PERCENT (BEAKER) (test 53 % pqjq=703) LYMPHOCYTES RELATIVE PERCENT (BEAKER) (test 31 % krnl=254) MONOCYTES RELATIVE PERCENT (BEAKER) (test 10 % osob=405) EOSINOPHILS RELATIVE PERCENT (BEAKER) (test 4 % umgv=574) BASOPHILS RELATIVE PERCENT (BEAKER) (test 1 % bftg=380) NEUTROPHILS ABSOLUTE COUNT (BEAKER) (test 3.17 K/ L 1.78-5.38 mzjp=660) LYMPHOCYTES ABSOLUTE COUNT (BEAKER) (test 1.85 K/ L 1.32-3.57 waiv=251) MONOCYTES ABSOLUTE COUNT (BEAKER) (test 0.57 K/ L 0.30-0.82 okqq=716) EOSINOPHILS ABSOLUTE COUNT (BEAKER) (test 0.25 K/ L 0.04-0.54 bhfa=360) BASOPHILS ABSOLUTE COUNT (BEAKER) (test 0.04 K/ L 0.01-0.08 mstd=368) IMMATURE GRANULOCYTES-RELATIVE PERCENT (BEAKER) 2 % 0-1 (test rxph=1340) POCT-GLUCOSE [id number] 21:25:00 Test Item Value Reference Range Comments POC-GLUCOSE METER (BEAKER) 275 mg/dL 70-110 TESTED AT [address] (test hqss=8898) [place] [address] POCT-GLUCOSE [id number] 16:40:00 Test Item Value Reference Range Comments POC-GLUCOSE METER (BEAKER) 227 mg/dL 70-110 TESTED AT [address] (test jllh=5455) [place] [address] POCT-GLUCOSE [id number] 13:25:00 Test Item Value Reference Range Comments POC-GLUCOSE METER (BEAKER) 375 mg/dL 70-110 TESTED AT [address] (test hjos=6350) [place] [address] POCT-GLUCOSE [id number] 08:11:00 Test Item Value Reference Range Comments POC-GLUCOSE METER (BEAKER) 224 mg/dL 70-110 TESTED AT [address] (test nrmj=4403) [place] [address] BASIC METABOLIC [id number] 04:41:00 Test Item Value Reference Range Comments SODIUM (BEAKER) (test 131 meq/L 136-145 dpmp=171) POTASSIUM (BEAKER) (test 3.9 meq/L 3.5-5.1 asha=489) CHLORIDE (BEAKER) (test 98 meq/L 98-107 eurm=710) CO2 (BEAKER) (test 22 meq/L 22-29 fiqz=884) BLOOD UREA NITROGEN 46 mg/dL 7-21 (BEAKER) (test jnfw=945) CREATININE (BEAKER) (test 1.75 mg/dL 0.57-1.25 sqiy=925) GLUCOSE RANDOM (BEAKER) 292 mg/dL 70-105 (test mqky=339) CALCIUM (BEAKER) (test 9.6 mg/dL 8.4-10.2 icet=332) EGFR (BEAKER) (test 39 mL/min/1.73 sq m ESTIMATED GFR IS NOT qqco=9075) ACCURATE CREATININE CLEARANCE IN PREDICTING GLOMERULAR FILTRATION RATE. ESTIMATED GFR IS NOT APPLICABLE FOR DIALYSIS PATIENTS. CBC W/PLT COUNT & AUTO [id number] 04:17:00 Test Item Value Reference Range Comments WHITE BLOOD CELL COUNT (BEAKER) (test mpbd=349) 5.4 K/ L 3.5-10.5 RED BLOOD CELL COUNT (BEAKER) (test kbnd=262) 3.91 M/ L 4.63-6.08 HEMOGLOBIN (BEAKER) (test hrdk=150) 11.4 GM/DL 13.7-17.5 HEMATOCRIT (BEAKER) (test kwoh=071) 32.6 % 40.1-51.0 MEAN CORPUSCULAR VOLUME (BEAKER) (test hmuk=469) 83.4 fL 79.0-92.2 MEAN CORPUSCULAR HEMOGLOBIN (BEAKER) (test 29.2 pg 25.7-32.2 budj=849) MEAN CORPUSCULAR HEMOGLOBIN CONC (BEAKER) (test 35.0 GM/DL 32.3-36.5 aefe=221) RED CELL DISTRIBUTION WIDTH (BEAKER) (test 12.5 % 11.6-14.4 dejm=528) PLATELET COUNT (BEAKER) (test nder=197) 125 K/CU MM 150-450 MEAN PLATELET VOLUME (BEAKER) (test eibg=977) 11.2 fL 9.4-12.4 NUCLEATED RED BLOOD CELLS (BEAKER) (test 0 /100 WBC 0-0 qyyq=001) NEUTROPHILS RELATIVE PERCENT (BEAKER) (test 56 % iqwy=704) LYMPHOCYTES RELATIVE PERCENT (BEAKER) (test 29 % qyvz=153) MONOCYTES RELATIVE PERCENT (BEAKER) (test 9 % fkyc=057) EOSINOPHILS RELATIVE PERCENT (BEAKER) (test 4 % ioyj=273) BASOPHILS RELATIVE PERCENT (BEAKER) (test 1 % ozsi=455) NEUTROPHILS ABSOLUTE COUNT (BEAKER) (test 3.04 K/ L 1.78-5.38 evar=733) LYMPHOCYTES ABSOLUTE COUNT (BEAKER) (test 1.57 K/ L 1.32-3.57 eiaj=336) MONOCYTES ABSOLUTE COUNT (BEAKER) (test 0.47 K/ L 0.30-0.82 jwcv=359) EOSINOPHILS ABSOLUTE COUNT (BEAKER) (test 0.23 K/ L 0.04-0.54 fikn=913) BASOPHILS ABSOLUTE COUNT (BEAKER) (test 0.04 K/ L 0.01-0.08 fzgs=364) IMMATURE GRANULOCYTES-RELATIVE PERCENT (BEAKER) 1 % 0-1 (test fkum=4310) POCT-GLUCOSE [id number] 21:52:00 Test Item Value Reference Range Comments POC-GLUCOSE METER (BEAKER) 373 mg/dL 70-110 Notified DILPI VARMA/TESTED AT [facility] (test aimm=2013) [address] [place] [address] POCT-GLUCOSE [id number] 18:21:00 Test Item Value Reference Range Comments POC-GLUCOSE METER (BEAKER) 358 mg/dL 70-110 Notified DILIP VARMA/TESTED AT [facility] (test emgo=4367) [address] [place], [place] [id number] POCT-GLUCOSE [id number] 14:56:00 Test Item Value Reference Range Comments POC-GLUCOSE METER (BEAKER) 427 mg/dL 70-110 TESTED AT [address] (test xgdh=5009) [place] [id number] POCT-GLUCOSE [id number] 08:52:00 Test Item Value Reference Range Comments POC-GLUCOSE METER (BEAKER) 314 mg/dL 70-110 TESTED AT [address] (test khax=8095) [place] [address] BASIC METABOLIC [id number] 05:39:00 Test Item Value Reference Range Comments SODIUM (BEAKER) (test 129 meq/L 136-145 atpk=645) POTASSIUM (BEAKER) (test 3.4 meq/L 3.5-5.1 mqzl=783) CHLORIDE (BEAKER) (test 96 meq/L 98-107 laht=483) CO2 (BEAKER) (test 22 meq/L 22-29 auor=677) BLOOD UREA NITROGEN 57 mg/dL 7-21 (BEAKER) (test czju=954) CREATININE (BEAKER) (test 2.24 mg/dL 0.57-1.25 mkmg=818) GLUCOSE RANDOM (BEAKER) 251 mg/dL 70-105 (test jorc=271) CALCIUM (BEAKER) (test 9.5 mg/dL 8.4-10.2 lnia=908) EGFR (BEAKER) (test 29 mL/min/1.73 sq m ESTIMATED GFR IS NOT tzhv=5649) ACCURATE CREATININE CLEARANCE IN PREDICTING GLOMERULAR FILTRATION RATE. ESTIMATED GFR IS NOT APPLICABLE FOR DIALYSIS PATIENTS. CBC W/PLT COUNT & AUTO [id number] 04:38:00 Test Item Value Reference Range Comments WHITE BLOOD CELL COUNT (BEAKER) (test kzpu=088) 6.0 K/ L 3.5-10.5 RED BLOOD CELL COUNT (BEAKER) (test fvrs=408) 4.05 M/ L 4.63-6.08 HEMOGLOBIN (BEAKER) (test ozoe=382) 11.8 GM/DL 13.7-17.5 HEMATOCRIT (BEAKER) (test kxsq=234) 33.9 % 40.1-51.0 MEAN CORPUSCULAR VOLUME (BEAKER) (test gtze=042) 83.7 fL 79.0-92.2 MEAN CORPUSCULAR HEMOGLOBIN (BEAKER) (test 29.1 pg 25.7-32.2 mwqc=965) MEAN CORPUSCULAR HEMOGLOBIN CONC (BEAKER) (test 34.8 GM/DL 32.3-36.5 khmx=414) RED CELL DISTRIBUTION WIDTH (BEAKER) (test 12.6 % 11.6-14.4 waow=935) PLATELET COUNT (BEAKER) (test rbkn=788) 148 K/CU MM 150-450 MEAN PLATELET VOLUME (BEAKER) (test qvmv=742) 11.0 fL 9.4-12.4 NUCLEATED RED BLOOD CELLS (BEAKER) (test 0 /100 WBC 0-0 vkku=967) NEUTROPHILS RELATIVE PERCENT (BEAKER) (test 53 % dbgs=998) LYMPHOCYTES RELATIVE PERCENT (BEAKER) (test 32 % nnol=016) MONOCYTES RELATIVE PERCENT (BEAKER) (test 9 % wsok=930) EOSINOPHILS RELATIVE PERCENT (BEAKER) (test 5 % jobz=099) BASOPHILS RELATIVE PERCENT (BEAKER) (test 1 % oshj=249) NEUTROPHILS ABSOLUTE COUNT (BEAKER) (test 3.15 K/ L 1.78-5.38 wech=801) LYMPHOCYTES ABSOLUTE COUNT (BEAKER) (test 1.93 K/ L 1.32-3.57 jnhi=917) MONOCYTES ABSOLUTE COUNT (BEAKER) (test 0.51 K/ L 0.30-0.82 iqhz=629) EOSINOPHILS ABSOLUTE COUNT (BEAKER) (test 0.27 K/ L 0.04-0.54 xmom=964) BASOPHILS ABSOLUTE COUNT (BEAKER) (test 0.05 K/ L 0.01-0.08 ntpf=226) IMMATURE GRANULOCYTES-RELATIVE PERCENT (BEAKER) 1 % 0-1 (test evsm=3672) POCT-GLUCOSE [id number] 23:01:00 Test Item Value Reference Range Comments POC-GLUCOSE METER (BEAKER) 377 mg/dL 70-110 TESTED AT [address] (test jhna=1377) [place] [address] POCT-GLUCOSE [id number] 22:02:00 Test Item Value Reference Range Comments POC-GLUCOSE METER (BEAKER) 385 mg/dL 70-110 TESTED AT [address] (test yyco=2033) [place] [address] TROPONIN [id number] 19:27:00 Test Item Value Reference Range Comments TROPONIN I (BEAKER) (test xqje=579) 0.22 ng/mL 0.00-0.03 Troponin I (TnI) levels must be interpreted [...] failure, acidosis, acute neurological disease, and persistent tachyarrhythmia.POCT-GLUCOSE [id number] 18:25:00 Test Item Value Reference Range Comments POC-GLUCOSE METER (BEAKER) 95 mg/dL 70-110 TESTED AT [address] (test coun=1949) [place] [address] HEMOGLOBIN [id number] 14:48:00 Test Item Value Reference Range Comments HEMOGLOBIN A1C (BEAKER) (test uboo=067) 9.4 % 4.3-6.1 POCT-GLUCOSE [id number] 13:56:00 Test Item Value Reference Range Comments POC-GLUCOSE METER (BEAKER) 316 mg/dL 70-110 TESTED AT [address] (test iobe=5164) [place] [address] POCT-GLUCOSE [id number] 13:56:00 Test Item Value Reference Range Comments POC-GLUCOSE METER (BEAKER) > mg/dL 70-110 OUTSIDE MEASURING RANGETESTED AT (test oqfo=2050) [place] [address] TROPONIN [id number] 12:27:00 Test Item Value Reference Range Comments TROPONIN I (BEAKER) (test dadf=804) 0.19 ng/mL 0.00-0.03 Troponin I (TnI) levels must be interpreted [...] failure, acidosis, acute neurological disease, and persistent tachyarrhythmia.[id number] 12:15:00 Test Item Value Reference Range Comments GLUCOSE RANDOM (BEAKER) (test mjak=179) 572 mg/dL 70-105 POCT-GLUCOSE [id number] 11:48:00 Test Item Value Reference Range Comments POC-GLUCOSE METER (BEAKER) > mg/dL 70-110 OUTSIDE MEASURING RANGETESTED AT (test tmqe=6998) [place] [address] POCT-GLUCOSE [id number] 09:39:00 Test Item Value Reference Range Comments POC-GLUCOSE METER (BEAKER) > mg/dL 70-110 OUTSIDE MEASURING RANGETESTED AT (test yewf=6776) [facility] [address] [facility] [address] TROPONIN [id number] 21:48:00 Test Item Value Reference Range Comments TROPONIN I (BEAKER) (test hrqp=147) 0.19 ng/mL 0.00-0.03 Troponin I (TnI) levels must be interpreted [...] failure, acidosis, acute neurological disease, and persistent tachyarrhythmia.CREATINE KINASE (CK), TOTAL AND [id number] 21:47:00 Test Item Value Reference Range Comments CREATINE KINASE TOTAL (BEAKER) (test lhro=005) 60 U/L 29-200 CREATINE KINASE-MB (BEAKER) (test wxvi=045) 4.4 ng/mL 0.0-6.6 CREATINE KINASE-MB INDEX (BEAKER) (test rbvv=521) 7.3 % CK-MB Reference Range:<6.7 Normal6.7-10.0 Borderline>10.0 AbnormalB-TYPE NATRIURETIC FACTOR (BNP)2017-12-03 21:47:00 Test Item Value Reference Range Comments B-TYPE NATRIURETIC PEPTIDE (BEAKER) (test jkck=330) 87 pg/mL 0-100 BASIC METABOLIC [id number] 21:41:00 Test Item Value Reference Range Comments SODIUM (BEAKER) (test 127 meq/L 136-145 epwb=508) POTASSIUM (BEAKER) (test 4.8 meq/L 3.5-5.1 Specimen moderately emoj=129) hemolyzed CHLORIDE (BEAKER) (test 91 meq/L 98-107 apuj=777) CO2 (BEAKER) (test 19 meq/L 22-29 sbkz=481) BLOOD UREA NITROGEN 48 mg/dL 7-21 (BEAKER) (test ykqs=387) CREATININE (BEAKER) (test 2.58 mg/dL 0.57-1.25 Specimen moderately xmal=973) hemolyzed GLUCOSE RANDOM (BEAKER) 355 mg/dL 70-105 (test xqsg=310) CALCIUM (BEAKER) (test 10.2 mg/dL 8.4-10.2 qefb=136) EGFR (BEAKER) (test 25 mL/min/1.73 sq m ESTIMATED GFR IS NOT uttj=8957) ACCURATE CREATININE CLEARANCE IN PREDICTING GLOMERULAR FILTRATION RATE. ESTIMATED GFR IS NOT APPLICABLE FOR DIALYSIS PATIENTS. [id number] 21:39:00 Test Item Value Reference Range Comments MAGNESIUM (BEAKER) (test 2.3 mg/dL 1.6-2.6 Specimen moderately hemolyzed fxgh=430) [id number] 21:30:00 Test Item Value Reference Range Comments PROTIME (BEAKER) (test wror=380) 13.3 seconds 11.7-14.7 INR (BEAKER) (test pnrg=687) 1.0 <=5.9 PARTIAL THROMBOPLASTIN TIME (BEAKER) (test 29.1 seconds 22.5-36.0 tnil=308) RECOMMENDED COUMADIN/WARFARIN INR THERAPY RANGESSTANDARD DOSE: 2.0 - 3.0 Includes: PROPHYLAXIS forvenous thrombosis, systemic embolization; TREATMENT for venous thrombosis and/or pulmonary embolus.HIGH RISK: Target INR is 2.5-3.5 for patients with mechanical heart valves.CBC W/PLT COUNT & AUTO [id number] 21:22:00 Test Item Value Reference Range Comments WHITE BLOOD CELL COUNT (BEAKER) (test xdse=012) 6.5 K/ L 3.5-10.5 RED BLOOD CELL COUNT (BEAKER) (test vlxu=493) 4.46 M/ L 4.63-6.08 HEMOGLOBIN (BEAKER) (test joty=787) 13.4 GM/DL 13.7-17.5 HEMATOCRIT (BEAKER) (test mcqg=405) 37.6 % 40.1-51.0 MEAN CORPUSCULAR VOLUME (BEAKER) (test jbsk=231) 84.3 fL 79.0-92.2 MEAN CORPUSCULAR HEMOGLOBIN (BEAKER) (test 30.0 pg 25.7-32.2 svwz=323) MEAN CORPUSCULAR HEMOGLOBIN CONC (BEAKER) (test 35.6 GM/DL 32.3-36.5 pycf=550) RED CELL DISTRIBUTION WIDTH (BEAKER) (test 12.9 % 11.6-14.4 mqti=620) PLATELET COUNT (BEAKER) (test ypve=573) 162 K/CU MM 150-450 MEAN PLATELET VOLUME (BEAKER) (test ppjs=818) 11.2 fL 9.4-12.4 NUCLEATED RED BLOOD CELLS (BEAKER) (test 0 /100 WBC 0-0 bfzf=329) NEUTROPHILS RELATIVE PERCENT (BEAKER) (test 60 % msyn=797) LYMPHOCYTES RELATIVE PERCENT (BEAKER) (test 24 % bewe=034) MONOCYTES RELATIVE PERCENT (BEAKER) (test 8 % wkdd=523) EOSINOPHILS RELATIVE PERCENT (BEAKER) (test 5 % uufi=148) BASOPHILS RELATIVE PERCENT (BEAKER) (test 1 % oygs=886) NEUTROPHILS ABSOLUTE COUNT (BEAKER) (test 3.89 K/ L 1.78-5.38 gvsj=396) LYMPHOCYTES ABSOLUTE COUNT (BEAKER) (test 1.57 K/ L 1.32-3.57 gojd=478) MONOCYTES ABSOLUTE COUNT (BEAKER) (test 0.54 K/ L 0.30-0.82 sgij=753) EOSINOPHILS ABSOLUTE COUNT (BEAKER) (test 0.34 K/ L 0.04-0.54 oxkc=276) BASOPHILS ABSOLUTE COUNT (BEAKER) (test 0.06 K/ L 0.01-0.08 kjrp=512) IMMATURE GRANULOCYTES-RELATIVE PERCENT (BEAKER) 1 % 0-1 (test loqt=9063) RAD, CHEST, 2 [id number] 14:26:00Reason for exam:->CHEST PAINFINAL REPORT Chest, PA and lateral. History: Chest pain. Comparison: 06/05/2014. Discussion: Left AICD present. Mild cardiomegaly. The lungs are clear without evidence of consolidation or effusion. There are no acute osseous abnormalities. The soft tissues are unremarkable. IMPRESSION: No acute cardiopulmonary abnormality. Signed: Rakesh Rainey MDReport Verified Date/Time: 12/03/2017 14:26:40 Reading Location: [address] Radiology Reading Room Electronically signed by: RAKESH RAINEY M.D. on 2017 02:26 PMB-TYPE NATRIURETIC FACTOR (BNP)2017-11-08 14:11:00 Test Item Value Reference Range Comments B-TYPE NATRIURETIC PEPTIDE (BEAKER) (test 138 pg/mL 0-100 rmgh=408) BASIC METABOLIC [id number] 14:01:00 Test Item Value Reference Range Comments SODIUM (BEAKER) (test 136 meq/L 136-145 sptg=434) POTASSIUM (BEAKER) (test 4.5 meq/L 3.5-5.1 ojxj=659) CHLORIDE (BEAKER) (test 104 meq/L 98-107 tadb=654) CO2 (BEAKER) (test 22 meq/L 22-29 lfbc=113) BLOOD UREA NITROGEN 34 mg/dL 7-21 (BEAKER) (test lcwm=507) CREATININE (BEAKER) (test 2.20 mg/dL 0.57-1.25 fpmg=120) GLUCOSE RANDOM (BEAKER) 248 mg/dL 70-105 (test llnk=579) CALCIUM (BEAKER) (test 9.9 mg/dL 8.4-10.2 cfum=977) EGFR (BEAKER) (test 30 mL/min/1.73 sq m ESTIMATED GFR IS NOT aazn=0094) ACCURATE CREATININE CLEARANCE IN PREDICTING GLOMERULAR FILTRATION RATE. ESTIMATED GFR IS NOT APPLICABLE FOR DIALYSIS PATIENTS. CBC W/PLT COUNT & AUTO [id number] 13:35:00 Test Item Value Reference Range Comments WHITE BLOOD CELL COUNT (BEAKER) (test ejyq=428) 7.6 K/ L 3.5-10.5 RED BLOOD CELL COUNT (BEAKER) (test netu=508) 4.20 M/ L 4.63-6.08 HEMOGLOBIN (BEAKER) (test bptg=447) 12.3 GM/DL 13.7-17.5 HEMATOCRIT (BEAKER) (test zarv=708) 37.0 % 40.1-51.0 MEAN CORPUSCULAR VOLUME (BEAKER) (test ivle=625) 88.1 fL 79.0-92.2 MEAN CORPUSCULAR HEMOGLOBIN (BEAKER) (test 29.3 pg 25.7-32.2 iwat=571) MEAN CORPUSCULAR HEMOGLOBIN CONC (BEAKER) (test 33.2 GM/DL 32.3-36.5 uwzh=541) RED CELL DISTRIBUTION WIDTH (BEAKER) (test 13.1 % 11.6-14.4 qran=446) PLATELET COUNT (BEAKER) (test ssxi=848) 154 K/CU MM 150-450 MEAN PLATELET VOLUME (BEAKER) (test aqfd=356) 11.4 fL 9.4-12.4 NUCLEATED RED BLOOD CELLS (BEAKER) (test 0 /100 WBC 0-0 nbuc=285) NEUTROPHILS RELATIVE PERCENT (BEAKER) (test 68 % uvhq=279) LYMPHOCYTES RELATIVE PERCENT (BEAKER) (test 18 % xybj=084) MONOCYTES RELATIVE PERCENT (BEAKER) (test 8 % kjrn=518) EOSINOPHILS RELATIVE PERCENT (BEAKER) (test 5 % ctjg=873) BASOPHILS RELATIVE PERCENT (BEAKER) (test 1 % jtzc=689) NEUTROPHILS ABSOLUTE COUNT (BEAKER) (test 5.16 K/ L 1.78-5.38 dztd=693) LYMPHOCYTES ABSOLUTE COUNT (BEAKER) (test 1.33 K/ L 1.32-3.57 mukj=582) MONOCYTES ABSOLUTE COUNT (BEAKER) (test 0.59 K/ L 0.30-0.82 pgjg=221) EOSINOPHILS ABSOLUTE COUNT (BEAKER) (test 0.38 K/ L 0.04-0.54 crjy=512) BASOPHILS ABSOLUTE COUNT (BEAKER) (test 0.06 K/ L 0.01-0.08 wovj=629) IMMATURE GRANULOCYTES-RELATIVE PERCENT (BEAKER) 1 % 0-1 (test sujd=9916) FLOW PRA CLASS I AND [id number] 09:17:00 Test Item Value Reference Range Comments DATE OF SERUM (BEAKER) (test bvfh=8644) [id number] SERUM # (BEAKER) (test dsvk=7750) [id number] FLOW PRA CLASS I AND II (test gbor=5253) See Scanned Report B-TYPE NATRIURETIC FACTOR (BNP)2017-10-10 14:33:00 Test Item Value Reference Range Comments B-TYPE NATRIURETIC PEPTIDE (BEAKER) (test 132 pg/mL 0-100 rdbj=681) BASIC METABOLIC [id number] 14:25:00 Test Item Value Reference Range Comments SODIUM (BEAKER) (test 137 meq/L 136-145 cmiw=284) POTASSIUM (BEAKER) (test 4.9 meq/L 3.5-5.1 rbkc=443) CHLORIDE (BEAKER) (test 103 meq/L 98-107 vmnc=616) CO2 (BEAKER) (test 21 meq/L 22-29 umrf=084) BLOOD UREA NITROGEN 66 mg/dL 7-21 (BEAKER) (test tssv=463) CREATININE (BEAKER) (test 2.18 mg/dL 0.57-1.25 agun=231) GLUCOSE RANDOM (BEAKER) 116 mg/dL 70-105 (test mgri=640) CALCIUM (BEAKER) (test 10.5 mg/dL 8.4-10.2 tnjo=166) EGFR (BEAKER) (test 30 mL/min/1.73 sq m ESTIMATED GFR IS NOT rbvz=7512) ACCURATE CREATININE CLEARANCE IN PREDICTING GLOMERULAR FILTRATION RATE. ESTIMATED GFR IS NOT APPLICABLE FOR DIALYSIS PATIENTS. BASIC METABOLIC [id number] 14:05:00 Test Item Value Reference Range Comments SODIUM (BEAKER) (test 134 meq/L 136-145 tinp=531) POTASSIUM (BEAKER) (test 4.9 meq/L 3.5-5.1 xwgl=412) CHLORIDE (BEAKER) (test 105 meq/L 98-107 ehgw=000) CO2 (BEAKER) (test 18 meq/L 22-29 mpyl=264) BLOOD UREA NITROGEN 38 mg/dL 7-21 (BEAKER) (test txue=100) CREATININE (BEAKER) (test 1.67 mg/dL 0.57-1.25 kkqq=207) GLUCOSE RANDOM (BEAKER) 154 mg/dL 70-105 (test nezr=845) CALCIUM (BEAKER) (test 9.8 mg/dL 8.4-10.2 hqmk=493) EGFR (BEAKER) (test 41 mL/min/1.73 sq m ESTIMATED GFR IS NOT myiw=2176) ACCURATE CREATININE CLEARANCE IN PREDICTING GLOMERULAR FILTRATION RATE. ESTIMATED GFR IS NOT APPLICABLE FOR DIALYSIS PATIENTS. B-TYPE NATRIURETIC FACTOR (BNP)2017-09-27 13:56:00 Test Item Value Reference Range Comments B-TYPE NATRIURETIC PEPTIDE (BEAKER) (test 194 pg/mL 0-100 tskr=087) CBC W/PLT COUNT & AUTO [id number] 13:27:00 Test Item Value Reference Range Comments WHITE BLOOD CELL COUNT (BEAKER) (test wsxq=763) 5.9 K/ L 3.5-10.5 RED BLOOD CELL COUNT (BEAKER) (test pchl=305) 3.74 M/ L 4.63-6.08 HEMOGLOBIN (BEAKER) (test ytwy=806) 11.3 GM/DL 13.7-17.5 HEMATOCRIT (BEAKER) (test lzgu=049) 33.9 % 40.1-51.0 MEAN CORPUSCULAR VOLUME (BEAKER) (test fbfe=977) 90.6 fL 79.0-92.2 MEAN CORPUSCULAR HEMOGLOBIN (BEAKER) (test 30.2 pg 25.7-32.2 vyjz=059) MEAN CORPUSCULAR HEMOGLOBIN CONC (BEAKER) (test 33.3 GM/DL 32.3-36.5 xite=009) RED CELL DISTRIBUTION WIDTH (BEAKER) (test 13.4 % 11.6-14.4 ivgk=242) PLATELET COUNT (BEAKER) (test jqde=024) 131 K/CU MM 150-450 MEAN PLATELET VOLUME (BEAKER) (test dtlz=754) 11.8 fL 9.4-12.4 NUCLEATED RED BLOOD CELLS (BEAKER) (test 0 /100 WBC 0-0 kwfb=128) NEUTROPHILS RELATIVE PERCENT (BEAKER) (test 64 % qqxi=165) LYMPHOCYTES RELATIVE PERCENT (BEAKER) (test 23 % iutl=936) MONOCYTES RELATIVE PERCENT (BEAKER) (test 7 % kkvi=226) EOSINOPHILS RELATIVE PERCENT (BEAKER) (test 4 % ombr=495) BASOPHILS RELATIVE PERCENT (BEAKER) (test 1 % wfkl=664) NEUTROPHILS ABSOLUTE COUNT (BEAKER) (test 3.76 K/ L 1.78-5.38 pzhx=446) LYMPHOCYTES ABSOLUTE COUNT (BEAKER) (test 1.36 K/ L 1.32-3.57 awia=733) MONOCYTES ABSOLUTE COUNT (BEAKER) (test 0.42 K/ L 0.30-0.82 zgjv=038) EOSINOPHILS ABSOLUTE COUNT (BEAKER) (test 0.23 K/ L 0.04-0.54 cyci=610) BASOPHILS ABSOLUTE COUNT (BEAKER) (test 0.05 K/ L 0.01-0.08 qwxe=241) IMMATURE GRANULOCYTES-RELATIVE PERCENT (BEAKER) 1 % 0-1 (test vdhl=1939) POCT-GLUCOSE [id number] 16:08:00 Test Item Value Reference Range Comments POC-GLUCOSE METER (BEAKER) 114 mg/dL 70-[address] [facility] [address] [facility] (test yjaw=4469) [facility] [address] BASIC METABOLIC [id number] 11:25:00 Test Item Value Reference Range Comments SODIUM (BEAKER) (test 138 meq/L 136-145 soug=373) POTASSIUM (BEAKER) (test 4.5 meq/L 3.5-5.1 Specimen slightly ucrv=740) hemolyzed CHLORIDE (BEAKER) (test 108 meq/L 98-107 sonw=962) CO2 (BEAKER) (test 22 meq/L 22-29 fwhl=781) BLOOD UREA NITROGEN 19 mg/dL 7-21 (BEAKER) (test dnyq=489) CREATININE (BEAKER) (test 1.07 mg/dL 0.57-1.25 Specimen slightly vyrj=732) hemolyzed GLUCOSE RANDOM (BEAKER) 126 mg/dL 70-105 (test wzkj=199) CALCIUM (BEAKER) (test 9.6 mg/dL 8.4-10.2 fdkz=496) EGFR (BEAKER) (test 69 mL/min/1.73 sq m ESTIMATED GFR IS NOT teks=2905) ACCURATE CREATININE CLEARANCE IN PREDICTING GLOMERULAR FILTRATION RATE. ESTIMATED GFR IS NOT APPLICABLE FOR DIALYSIS PATIENTS. CBC W/PLT COUNT & AUTO [id number] 11:09:00 Test Item Value Reference Range Comments WHITE BLOOD CELL COUNT (BEAKER) (test clct=628) 6.1 K/ L 3.5-10.5 RED BLOOD CELL COUNT (BEAKER) (test xxch=488) 3.74 M/ L 4.63-6.08 HEMOGLOBIN (BEAKER) (test eqyq=048) 11.3 GM/DL 13.7-17.5 HEMATOCRIT (BEAKER) (test zocb=119) 33.9 % 40.1-51.0 MEAN CORPUSCULAR VOLUME (BEAKER) (test vhiw=142) 90.6 fL 79.0-92.2 MEAN CORPUSCULAR HEMOGLOBIN (BEAKER) (test 30.2 pg 25.7-32.2 kgow=721) MEAN CORPUSCULAR HEMOGLOBIN CONC (BEAKER) (test 33.3 GM/DL 32.3-36.5 flix=337) RED CELL DISTRIBUTION WIDTH (BEAKER) (test 14.1 % 11.6-14.4 wqzt=953) PLATELET COUNT (BEAKER) (test yhox=440) 150 K/CU MM 150-450 MEAN PLATELET VOLUME (BEAKER) (test otxx=060) 11.3 fL 9.4-12.4 NUCLEATED RED BLOOD CELLS (BEAKER) (test 0 /100 WBC 0-0 byas=471) NEUTROPHILS RELATIVE PERCENT (BEAKER) (test 62 % qgnl=452) LYMPHOCYTES RELATIVE PERCENT (BEAKER) (test 23 % pnma=143) MONOCYTES RELATIVE PERCENT (BEAKER) (test 9 % vhqo=522) EOSINOPHILS RELATIVE PERCENT (BEAKER) (test 5 % pihn=587) BASOPHILS RELATIVE PERCENT (BEAKER) (test 1 % chzj=164) NEUTROPHILS ABSOLUTE COUNT (BEAKER) (test 3.77 K/ L 1.78-5.38 plif=167) LYMPHOCYTES ABSOLUTE COUNT (BEAKER) (test 1.39 K/ L 1.32-3.57 exqa=785) MONOCYTES ABSOLUTE COUNT (BEAKER) (test 0.56 K/ L 0.30-0.82 bbbm=496) EOSINOPHILS ABSOLUTE COUNT (BEAKER) (test 0.28 K/ L 0.04-0.54 oott=782) BASOPHILS ABSOLUTE COUNT (BEAKER) (test 0.04 K/ L 0.01-0.08 kkxe=225) IMMATURE GRANULOCYTES-RELATIVE PERCENT (BEAKER) 1 % 0-1 (test axpm=2412) HEMOGLOBIN [id number] 04:47:00 Test Item Value Reference Range Comments HEMOGLOBIN A1C (BEAKER) (test hoqs=629) 8.2 % 4.3-6.1 B-TYPE NATRIURETIC FACTOR (BNP)2017-08-16 15:16:00 Test Item Value Reference Range Comments B-TYPE NATRIURETIC PEPTIDE (BEAKER) (test 122 pg/mL 0-100 meof=032) LIPID [id number] 15:12:00 Test Item Value Reference Range Comments TRIGLYCERIDES (BEAKER) (test gnka=521) 240 mg/dL CHOLESTEROL (BEAKER) (test rfng=175) 153 mg/dL HDL CHOLESTEROL (BEAKER) (test oirf=765) 35 mg/dL LDL CHOLESTEROL CALCULATED (BEAKER) (test 70 mg/dL kidb=237) Triglyceride Reference Range: Low Risk <150 Borderline 150- 199 High Risk 200-499 Very High Risk >=500Cholesterol Reference Range: Low Risk <200 Borderline 200-239 High Risk > 240HDL Cholesterol Reference Range: Low Risk >=60 High Risk <40LDL Cholesterol Reference Range: Optimal <100 Near Optimal 100-129 Borderline 130-159 High 160-189 Very High >=190BASIC METABOLIC [id number] 15:12:00 Test Item Value Reference Range Comments SODIUM (BEAKER) (test 131 meq/L 136-145 tkaa=330) POTASSIUM (BEAKER) (test 5.1 meq/L 3.5-5.1 ksoj=999) CHLORIDE (BEAKER) (test 104 meq/L 98-107 mzly=459) CO2 (BEAKER) (test 17 meq/L 22-29 rgku=072) BLOOD UREA NITROGEN 36 mg/dL 7-21 (BEAKER) (test iglr=676) CREATININE (BEAKER) (test 1.54 mg/dL 0.57-1.25 bhfc=719) GLUCOSE RANDOM (BEAKER) 205 mg/dL 70-105 (test oynx=127) CALCIUM (BEAKER) (test 9.3 mg/dL 8.4-10.2 akjc=843) EGFR (BEAKER) (test 45 mL/min/1.73 sq m ESTIMATED GFR IS NOT gtuv=2771) ACCURATE CREATININE CLEARANCE IN PREDICTING GLOMERULAR FILTRATION RATE. ESTIMATED GFR IS NOT APPLICABLE FOR DIALYSIS PATIENTS. HEPATIC FUNCTION [id number] 15:12:00 Test Item Value Reference Range Comments TOTAL PROTEIN (BEAKER) (test xsxq=346) 7.2 gm/dL 6.0-8.3 ALBUMIN (BEAKER) (test yrld=3156) 4.3 g/dL 3.5-5.0 BILIRUBIN TOTAL (BEAKER) (test rhst=073) 0.6 mg/dL 0.2-1.2 BILIRUBIN DIRECT (BEAKER) (test wfvo=599) 0.2 mg/dL 0.1-0.5 ALKALINE PHOSPHATASE (BEAKER) (test ksrn=321) 77 U/L 40-150 AST (SGOT) (BEAKER) (test aqsa=722) 20 U/L 5-34 ALT (SGPT) (BEAKER) (test ejur=399) 26 U/L 6-55 CBC W/PLT COUNT & AUTO [id number] 14:49:00 Test Item Value Reference Range Comments WHITE BLOOD CELL COUNT (BEAKER) (test ytxb=946) 5.9 K/ L 3.5-10.5 RED BLOOD CELL COUNT (BEAKER) (test plip=732) 3.74 M/ L 4.63-6.08 HEMOGLOBIN (BEAKER) (test xyqa=758) 11.0 GM/DL 13.7-17.5 HEMATOCRIT (BEAKER) (test qyyz=192) 32.7 % 40.1-51.0 MEAN CORPUSCULAR VOLUME (BEAKER) (test eags=855) 87.4 fL 79.0-92.2 MEAN CORPUSCULAR HEMOGLOBIN (BEAKER) (test 29.4 pg 25.7-32.2 qsnx=305) MEAN CORPUSCULAR HEMOGLOBIN CONC (BEAKER) (test 33.6 GM/DL 32.3-36.5 obpe=401) RED CELL DISTRIBUTION WIDTH (BEAKER) (test 13.4 % 11.6-14.4 olao=551) PLATELET COUNT (BEAKER) (test urdp=922) 121 K/CU MM 150-450 MEAN PLATELET VOLUME (BEAKER) (test njzq=521) 12.1 fL 9.4-12.4 NUCLEATED RED BLOOD CELLS (BEAKER) (test 0 /100 WBC 0-0 xeni=260) NEUTROPHILS RELATIVE PERCENT (BEAKER) (test 65 % znbe=977) LYMPHOCYTES RELATIVE PERCENT (BEAKER) (test 22 % mlxs=272) MONOCYTES RELATIVE PERCENT (BEAKER) (test 7 % lmha=835) EOSINOPHILS RELATIVE PERCENT (BEAKER) (test 4 % cwjd=915) BASOPHILS RELATIVE PERCENT (BEAKER) (test 1 % bnsj=617) NEUTROPHILS ABSOLUTE COUNT (BEAKER) (test 3.84 K/ L 1.78-5.38 bfnf=097) LYMPHOCYTES ABSOLUTE COUNT (BEAKER) (test 1.32 K/ L 1.32-3.57 rkas=908) MONOCYTES ABSOLUTE COUNT (BEAKER) (test 0.43 K/ L 0.30-0.82 puia=177) EOSINOPHILS ABSOLUTE COUNT (BEAKER) (test 0.26 K/ L 0.04-0.54 bssr=593) BASOPHILS ABSOLUTE COUNT (BEAKER) (test 0.04 K/ L 0.01-0.08 wkvz=655) IMMATURE GRANULOCYTES-RELATIVE PERCENT (BEAKER) 1 % 0-1 (test nrcj=8154) B-TYPE NATRIURETIC FACTOR (BNP)2017-06-07 15:23:00 Test Item Value Reference Range Comments B-TYPE NATRIURETIC PEPTIDE (BEAKER) (test 126 pg/mL 0-100 tfvr=419) BASIC METABOLIC [id number] 15:19:00 Test Item Value Reference Range Comments SODIUM (BEAKER) (test 137 meq/L 136-145 bbqx=548) POTASSIUM (BEAKER) (test 4.4 meq/L 3.5-5.1 eest=197) CHLORIDE (BEAKER) (test 107 meq/L 98-107 kxoh=959) CO2 (BEAKER) (test 19 meq/L 22-29 ebkm=415) BLOOD UREA NITROGEN 31 mg/dL 7-21 (BEAKER) (test uqla=961) CREATININE (BEAKER) (test 1.38 mg/dL 0.57-1.25 orcd=634) GLUCOSE RANDOM (BEAKER) 235 mg/dL 70-105 (test addj=824) CALCIUM (BEAKER) (test 9.4 mg/dL 8.4-10.2 jflg=150) EGFR (BEAKER) (test 51 mL/min/1.73 sq m ESTIMATED GFR IS NOT tiun=5209) ACCURATE CREATININE CLEARANCE IN PREDICTING GLOMERULAR FILTRATION RATE. ESTIMATED GFR IS NOT APPLICABLE FOR DIALYSIS PATIENTS. CBC W/PLT COUNT & AUTO [id number] 14:52:00 Test Item Value Reference Range Comments WHITE BLOOD CELL COUNT (BEAKER) (test ilzl=237) 7.6 K/ L 3.5-10.5 RED BLOOD CELL COUNT (BEAKER) (test mjxx=998) 4.02 M/ L 4.63-6.08 HEMOGLOBIN (BEAKER) (test lsia=787) 12.1 GM/DL 13.7-17.5 HEMATOCRIT (BEAKER) (test qolg=264) 35.7 % 40.1-51.0 MEAN CORPUSCULAR VOLUME (BEAKER) (test sdsr=127) 88.8 fL 79.0-92.2 MEAN CORPUSCULAR HEMOGLOBIN (BEAKER) (test 30.1 pg 25.7-32.2 punj=312) MEAN CORPUSCULAR HEMOGLOBIN CONC (BEAKER) (test 33.9 GM/DL 32.3-36.5 ktmu=792) RED CELL DISTRIBUTION WIDTH (BEAKER) (test 13.2 % 11.6-14.4 fvgn=633) PLATELET COUNT (BEAKER) (test uhan=216) 165 K/CU MM 150-450 MEAN PLATELET VOLUME (BEAKER) (test naso=426) 11.0 fL 9.4-12.4 NUCLEATED RED BLOOD CELLS (BEAKER) (test 0 /100 WBC 0-0 frxx=542) NEUTROPHILS RELATIVE PERCENT (BEAKER) (test 64 % mbjl=390) LYMPHOCYTES RELATIVE PERCENT (BEAKER) (test 20 % ckes=391) MONOCYTES RELATIVE PERCENT (BEAKER) (test 8 % jbgu=867) EOSINOPHILS RELATIVE PERCENT (BEAKER) (test 7 % fzbq=376) BASOPHILS RELATIVE PERCENT (BEAKER) (test 1 % jhyj=734) NEUTROPHILS ABSOLUTE COUNT (BEAKER) (test 4.83 K/ L 1.78-5.38 pnwo=575) LYMPHOCYTES ABSOLUTE COUNT (BEAKER) (test 1.49 K/ L 1.32-3.57 drau=423) MONOCYTES ABSOLUTE COUNT (BEAKER) (test 0.62 K/ L 0.30-0.82 ekiu=893) EOSINOPHILS ABSOLUTE COUNT (BEAKER) (test 0.55 K/ L 0.04-0.54 tuux=413) BASOPHILS ABSOLUTE COUNT (BEAKER) (test 0.06 K/ L 0.01-0.08 foml=502) IMMATURE GRANULOCYTES-RELATIVE PERCENT (BEAKER) 0 % 0-1 (test gvpm=1329) [id number] 10:24:00 Test Item Value Reference Range Comments ACTIVATED CLOTTING TIME [address] [facility] [id number] (BEAKER) (test fkhw=906) [place] [id number] 09:15:00 Test Item Value Reference Range Comments ACTIVATED CLOTTING TIME [address] [facility] [address] (BEAKER) (test kryd=399) [place] [id number] BASIC METABOLIC [id number] 06:36:00 Test Item Value Reference Range Comments SODIUM (BEAKER) (test 134 meq/L 136-145 vpdn=739) POTASSIUM (BEAKER) (test 4.8 meq/L 3.5-5.1 wrhi=792) CHLORIDE (BEAKER) (test 105 meq/L 98-107 ruxe=075) CO2 (BEAKER) (test 19 meq/L 22-29 gcwt=551) BLOOD UREA NITROGEN 25 mg/dL 7-21 (BEAKER) (test rirs=099) CREATININE (BEAKER) (test 1.52 mg/dL 0.57-1.25 nchh=147) GLUCOSE RANDOM (BEAKER) 71 mg/dL 70-105 (test xctk=922) CALCIUM (BEAKER) (test 9.4 mg/dL 8.4-10.2 xyqn=254) EGFR (BEAKER) (test 46 mL/min/1.73 sq m ESTIMATED GFR IS NOT yixc=2133) ACCURATE CREATININE CLEARANCE IN PREDICTING GLOMERULAR FILTRATION RATE. ESTIMATED GFR IS NOT APPLICABLE FOR DIALYSIS PATIENTS. CBC W/PLT COUNT & AUTO [id number] 06:27:00 Test Item Value Reference Range Comments WHITE BLOOD CELL COUNT (BEAKER) (test duee=614) 6.4 K/ L 4.0-10.0 RED BLOOD CELL COUNT (BEAKER) (test cqlm=671) 3.85 M/ L 4.20-5.80 HEMOGLOBIN (BEAKER) (test kbbf=314) 11.7 GM/DL 13.0-16.8 HEMATOCRIT (BEAKER) (test anqb=294) 35.9 % 40.0-50.0 MEAN CORPUSCULAR VOLUME (BEAKER) (test quow=216) 93.2 fL 82.0-98.0 MEAN CORPUSCULAR HEMOGLOBIN (BEAKER) (test 30.5 pg 27.0-33.0 vjbq=878) MEAN CORPUSCULAR HEMOGLOBIN CONC (BEAKER) (test 32.7 GM/DL 32.0-36.0 xwxj=751) RED CELL DISTRIBUTION WIDTH (BEAKER) (test 14.3 % 10.3-14.2 pyvj=132) PLATELET COUNT (BEAKER) (test bhlo=411) 134 K/CU MM 150-430 MEAN PLATELET VOLUME (BEAKER) (test yqnq=758) 8.2 fL 6.5-10.5 NUCLEATED RED BLOOD CELLS (BEAKER) (test 0 /100 WBC 0-0 cdlv=075) NEUTROPHILS RELATIVE PERCENT (BEAKER) (test 66 % yvxc=969) LYMPHOCYTES RELATIVE PERCENT (BEAKER) (test 22 % gaug=657) MONOCYTES RELATIVE PERCENT (BEAKER) (test 7 % aqxq=878) EOSINOPHILS RELATIVE PERCENT (BEAKER) (test 5 % fqjt=181) BASOPHILS RELATIVE PERCENT (BEAKER) (test 1 % awgj=737) NEUTROPHILS ABSOLUTE COUNT (BEAKER) (test 4.26 K/ L 1.80-8.00 wvry=205) LYMPHOCYTES ABSOLUTE COUNT (BEAKER) (test 1.39 K/ L 1.48-4.50 enpc=691) MONOCYTES ABSOLUTE COUNT (BEAKER) (test 0.44 K/ L 0.00-1.30 mxuq=305) EOSINOPHILS ABSOLUTE COUNT (BEAKER) (test 0.29 K/ L 0.00-0.50 jonj=670) BASOPHILS ABSOLUTE COUNT (BEAKER) (test 0.06 K/ L 0.00-0.20 dqnq=999) 0.00POCT-GLUCOSE [id number] 06:22:00 Test Item Value Reference Range Comments POC-GLUCOSE METER (BEAKER) 72 mg/dL 70-[address] [facility] [address] [facility] (test lugl=9237) [facility] [address] PLATELET AGGREGATION: FUNCTION [id number] 17:48:00 Test Item Value Reference Range Comments WEAK ADP RESULT(BEAKER) (test 34 % 60-91 chjc=0146) PLATELET FUNCTION SCREEN 0-39% indicates marked platelet INTERP (BEAKER) (test dysfunction falc=5101) [id number] Catalina Henderson MD (electronic (BEAKER) (test nhhh=9512) signature) PLATELET COUNT AGG (BEAKER) 168 K/CU MM 150-430 (test ioyq=7704) HEMOGLOBIN [id number] 14:16:00 Test Item Value Reference Range Comments HEMOGLOBIN A1C (BEAKER) (test qbtg=494) 6.0 % 4.3-6.1 B-TYPE NATRIURETIC FACTOR (BNP)2017-03-22 13:55:00 Test Item Value Reference Range Comments B-TYPE NATRIURETIC PEPTIDE (BEAKER) (test 283 pg/mL 0-100 speh=956) LIPID [id number] 13:51:00 Test Item Value Reference Range Comments TRIGLYCERIDES (BEAKER) (test tzef=665) 329 mg/dL CHOLESTEROL (BEAKER) (test ojbc=181) 131 mg/dL HDL CHOLESTEROL (BEAKER) (test qupn=999) 30 mg/dL LDL CHOLESTEROL CALCULATED (BEAKER) (test 35 mg/dL pghi=328) Triglyceride Reference Range: Low Risk <150 Borderline 150- 199 High Risk 200-499 Very High Risk >=500Cholesterol Reference Range: Low Risk <200 Borderline 200-239 High Risk > 240HDL Cholesterol Reference Range: Low Risk >=60 High Risk <40LDL Cholesterol Reference Range: Optimal <100 Near Optimal 100-129 Borderline 130-159 High 160-189 Very High >=190BASIC METABOLIC [id number] 13:51:00 Test Item Value Reference Range Comments SODIUM (BEAKER) (test 135 meq/L 136-145 ydqa=097) POTASSIUM (BEAKER) (test 3.8 meq/L 3.5-5.1 gntg=682) CHLORIDE (BEAKER) (test 101 meq/L 98-107 ymtm=251) CO2 (BEAKER) (test 22 meq/L 22-29 qfbw=428) BLOOD UREA NITROGEN 28 mg/dL 7-21 (BEAKER) (test plly=532) CREATININE (BEAKER) (test 1.48 mg/dL 0.57-1.25 jnqj=052) GLUCOSE RANDOM (BEAKER) 111 mg/dL 70-105 (test kkdx=890) CALCIUM (BEAKER) (test 9.4 mg/dL 8.4-10.2 yidx=366) EGFR (BEAKER) (test 48 mL/min/1.73 sq m ESTIMATED GFR IS NOT nbal=7784) ACCURATE CREATININE CLEARANCE IN PREDICTING GLOMERULAR FILTRATION RATE. ESTIMATED GFR IS NOT APPLICABLE FOR DIALYSIS PATIENTS. HEPATIC FUNCTION [id number] 13:51:00 Test Item Value Reference Range Comments TOTAL PROTEIN (BEAKER) (test mknt=563) 7.4 gm/dL 6.0-8.3 ALBUMIN (BEAKER) (test ttjd=9851) 4.3 g/dL 3.5-5.0 BILIRUBIN TOTAL (BEAKER) (test bcia=134) 0.5 mg/dL 0.2-1.2 BILIRUBIN DIRECT (BEAKER) (test kdvd=050) 0.2 mg/dL 0.1-0.5 ALKALINE PHOSPHATASE (BEAKER) (test bbol=185) 68 U/L 40-150 AST (SGOT) (BEAKER) (test rhjt=746) 24 U/L 5-34 ALT (SGPT) (BEAKER) (test thyb=646) 24 U/L 6-55 CBC W/PLT COUNT & AUTO [id number] 13:20:00 Test Item Value Reference Range Comments WHITE BLOOD CELL COUNT (BEAKER) (test yukc=718) 6.7 K/ L 4.0-10.0 RED BLOOD CELL COUNT (BEAKER) (test hqth=120) 3.55 M/ L 4.20-5.80 HEMOGLOBIN (BEAKER) (test rywo=288) 11.3 GM/DL 13.0-16.8 HEMATOCRIT (BEAKER) (test oezu=464) 31.8 % 40.0-50.0 MEAN CORPUSCULAR VOLUME (BEAKER) (test upfx=234) 89.6 fL 82.0-98.0 MEAN CORPUSCULAR HEMOGLOBIN (BEAKER) (test 31.8 pg 27.0-33.0 ooga=315) MEAN CORPUSCULAR HEMOGLOBIN CONC (BEAKER) (test 35.5 GM/DL 32.0-36.0 ngxf=905) RED CELL DISTRIBUTION WIDTH (BEAKER) (test 13.8 % 10.3-14.2 kxdn=888) PLATELET COUNT (BEAKER) (test vgcx=623) 136 K/CU MM 150-430 MEAN PLATELET VOLUME (BEAKER) (test fqic=802) 7.8 fL 6.5-10.5 NUCLEATED RED BLOOD CELLS (BEAKER) (test 0 /100 WBC 0-0 nrir=997) NEUTROPHILS RELATIVE PERCENT (BEAKER) (test 64 % djca=173) LYMPHOCYTES RELATIVE PERCENT (BEAKER) (test 20 % kfkk=801) MONOCYTES RELATIVE PERCENT (BEAKER) (test 9 % yzui=915) EOSINOPHILS RELATIVE PERCENT (BEAKER) (test 7 % rtkt=536) BASOPHILS RELATIVE PERCENT (BEAKER) (test 0 % dknl=976) NEUTROPHILS ABSOLUTE COUNT (BEAKER) (test 4.28 K/ L 1.80-8.00 wfit=756) LYMPHOCYTES ABSOLUTE COUNT (BEAKER) (test 1.36 K/ L 1.48-4.50 ekxm=821) MONOCYTES ABSOLUTE COUNT (BEAKER) (test 0.58 K/ L 0.00-1.30 qwxo=093) EOSINOPHILS ABSOLUTE COUNT (BEAKER) (test 0.50 K/ L 0.00-0.50 mnxi=525) BASOPHILS ABSOLUTE COUNT (BEAKER) (test 0.01 K/ L 0.00-0.20 mtzf=485) 0.00
[2018-09-26] MEDS ORDERED: NA CHLORIDE 0.9% 250 ML ONE ×2 (11:28→13:50)
[2018-09-26 11:42] LABS: RBC Red Blood Cell Count 4.49 M/uL (4.33-5.43)
[2018-09-26 11:43] LABS: Absolute Lymphocytes (CBC) 1.4 K/uL (0.7-4.9); Absolute Monocytes 0.5 K/uL (0.1-1.3); Absolute Neutrophil 3.7 K/uL (1.8-8.0); Basophils % 0.8 % (0-1.3); Eosinophils % 4.5 % (0-4.4); Hematocrit 38.6 % (39.6-49.0); Lymphocytes % 24.2 % (15.3-44.8); MPV 10.1 fL (7.6-11.3); Monocytes % 8.2 % (3.3-12.3)
--- NOTE | 2018-09-26 11:52 | RAD REPORT ---
EXAM DESCRIPTION: RAD - Chest Single View - 09/26/2018 11:38 am CLINICAL HISTORY: dizziness Chest pain. COMPARISON: CHEST PA AND LAT 2 VIEW dated 03/31/2011; CHEST SINGLE VIEW dated 10/22/2000 FINDINGS: Portable technique limits examination quality. The lungs are grossly clear. The heart is normal in size. No displaced fractures.Multi lead pacer/def ibrillator device present. Sternotomy wires present. IMPRESSION: No acute intrathoracic process suspected.
[2018-09-26 12:27] LABS: Magnesium 2.4 mg/dL (1.8-2.4); Potassium 4.6 mmol/L (3.5-5.1); Troponin (Emerg Dept Use Only) 0.08 ng/mL (0.0-0.045)
--- NOTE | 2018-09-26 12:33 | EKG ---
Test Date: 2018-09-26 Test Time: 11:23:10 Coding Quality Analyst: RENNY MEASUREMENT RESULTS: Intervals: Rate: 80 MI: 288 QRSD: 106 QT: 408 QTc: 470 Wisdom: P: -21 MI: 288 QRS: 2 T: 65 INTERPRETIVE STATEMENTS: Sinus rhythm with 1st degree AV block Low voltage QRS Septal infarct, age undetermined Abnormal ECG Compared to ECG 02/08/2018 13:28:32 First degree AV block now present Low QRS voltage now present Atrial-paced complex(es) or rhythm no longer present Ventricular-paced complex(es) or rhythm no longer present T-wave abnormality no longer present Possible ischemia no longer present Myocardial infarct finding still present Electronically Signed On 09-26-18 12:32:35 WHEELMAN by Shakeel Denis
--- NOTE | 2018-09-26 13:36 | EDPHYS ---
Physician Documentation [facility] Name: Nii Zelaya Age: 68 yrs Sex: Male : 1950 Arrival Date: 09/26/2018 Time: 10:54 Bed 5 Private MD: JEREMIAS, [place] ED Physician Bonilla Vasquez HPI: 09/26 12:29 This 68 yrs old Male presents to ER via Ambulatory with complaints of rn Dizziness, Blood Pressure Problem. 12:29 The patient presents with dizziness, lightheadedness. Onset: The symptoms/episode rn began/occurred 6 week(s) ago. Modifying factors: The symptoms are alleviated by nothing, the symptoms are aggravated by nothing. Severity of symptoms: At their worst the symptoms were moderate in the emergency department the symptoms have improved. The patient has experienced similar episodes in the past. Sent by [place] [facility] for dizziness, low blood pressure, patient reports dizzy for about 6 weeks, on and off, lasts a few minutes, doesn't seem worse with anything specific, happens daily, no big changes in medication recently, has been on heart transplant list for 2 years without any indication for a heart soon. No fever/vomiting/diarrhea. No abd pain. . Historical: - Allergies: 11:03 No Known Allergies; aj - PMHx: 11:03 CHF; on Heart Transplant List; pacemaker/defbrilator; aj - PSHx: 11:03 CABG; aj - Immunization history:: Adult Immunizations up to date. - Social history:: Smoking status: Patient/guardian denies using tobacco. - Ebola Screening: : Patient negative for fever greater than or equal to 101.5 degrees Fahrenheit, and additional compatible Ebola Virus Disease symptoms Patient denies exposure to infectious person Patient denies travel to an Ebola-affected area in the 21 days before illness onset No symptoms or risks identified at this time. - Family history:: not pertinent. - Hospitalizations: : No recent hospitalization is reported. ROS: 12:29 Constitutional: Negative for fever, chills, and weight loss, Eyes: Negative for injury, rn pain, redness, and discharge, Neck: Negative for injury, pain, and swelling, Cardiovascular: Negative for chest pain, palpitations, and edema, Respiratory: Negative for cough, wheezing, and pleuritic chest pain, Abdomen/GI: Negative for abdominal pain, nausea, vomiting, diarrhea, and constipation, MS/Extremity: Negative for injury and deformity, Skin: Negative for injury, rash, and discoloration, Neuro: Negative for headache, numbness, tingling, and seizure. Exam: 12:29 Constitutional: This is a well developed, well nourished patient who is awake, alert, rn and in no acute distress. Head/Face: Normocephalic, atraumatic. Eyes: Pupils equal round and reactive to light, extra-ocular motions intact. Lids and lashes normal. Conjunctiva and sclera are non-icteric and not injected. Cornea within normal limits. Periorbital areas with no swelling, redness, or edema. ENT: dry MM Cardiovascular: regular, no murmur Respiratory: Equal bilaterally, diminished at bases Abdomen/GI: soft, non-tender MS/ Extremity: Pulses equal, no cyanosis. Neurovascular intact. Full, normal range of motion. Equal circumference. Neuro: Awake and alert, GCS 15, oriented to person, place, time, and situation. Cranial nerves II-XII grossly intact. Motor strength 5/5 in all extremities. Sensory grossly intact. Cerebellar exam normal. Vital Signs: 11:03 BP 136 / 72; Pulse 84; Resp 18; Temp 97.7; Pulse Ox 99% on R/A; Weight 78.93 kg; Height aj 5 ft. 5 in. (165.10 cm); 11:40 BP 126 / 72; Pulse 60; Resp 16 S; Pulse Ox 98% on R/A; Pain 0/10; aa5 12:00 BP 128 / 66; Pulse 60; Resp 16 S; Pulse Ox 98% on R/A; aa5 12:30 BP 134 / 72; Pulse 60; Resp 16 S; Pulse Ox 98% on R/A; aa5 13:00 BP 133 / 72; Pulse 60; Resp 18 S; Pulse Ox 99% on R/A; aa5 13:30 BP 123 / 73; Pulse 60; Resp 18 S; Pulse Ox 98% on R/A; aa5 14:00 BP 136 / 61; Pulse 60; Resp 16 S; Temp 98.0(TE); Pulse Ox 98% on R/A; Pain 0/10; aa5 15:00 BP 128 / 82; Pulse 60; Resp 16 S; Temp 97.5(TE); Pulse Ox 98% on R/A; aa5 11:03 Body Mass Index 28.95 (78.93 kg, 165.10 cm) aj Procedures: 12:26 Ultrasound: Type: Bedside ECHO performed by Dr. Vasquez, no pericardial effusion seen, + rn mild pulmonary edema, performed by the emergency department physician. MDM: 11:04 Patient medically screened. rn 13:01 ED course: Pt with acute kidney injury, last creatinine 0.9, today is > 2, may explain rn his fatigue and dizziness. . 13:33 Differential diagnosis: cardiac arrhythmia, generalized weakness, hypovolemia, rn idiopathic dizziness, near-syncope. Data reviewed: vital signs, nurses notes, lab test result(s), EKG, radiologic studies, plain films, and as a result, I will admit patient. Counseling: I had a detailed discussion with the patient and/or guardian regarding: the historical points, exam findings, and any diagnostic results supporting the discharge/admit diagnosis, lab results, radiology results, the need for further work-up and treatment in the hospital. Admission orders: after a detailed discussion of the patient's condition and case, the admit orders are written by me. ED course: When recommended, admission, patient requested transfer to [facility] on transplant list and all of his care there, spoke with Dr. Escalante, who accepted transfer. . 09/26 11:15 Order name: Basic Metabolic Panel; Complete Time: 12:27 rn 09/26 11:15 Order name: CBC with Diff; Complete Time: 11:53 rn 09/26 11:15 Order name: Magnesium; Complete Time: 12:27 rn 09/26 11:15 Order name: NT PRO-BNP; Complete Time: 12:27 rn 09/26 11:15 Order name: Troponin (emerg Dept Use Only); Complete Time: 12:27 rn 09/26 11:15 Order name: XRAY Chest (1 view); Complete Time: 11:53 rn 09/26 11:15 Order name: EKG; Complete Time: 11:16 rn 09/26 11:15 Order name: Cardiac monitoring; Complete Time: 11:33 rn 09/26 11:15 Order name: EKG - Nurse/Tech; Complete Time: 11:34 rn 09/26 11:15 Order name: IV Saline Lock; Complete Time: 11:34 rn 09/26 11:15 Order name: Labs collected and sent; Complete Time: :34 rn 09/26 11:15 Order name: O2 Per Protocol; Complete Time: rn 09/26 11:15 Order name: O2 Sat Monitoring; Complete Time: : rn Administered Medications: 11:20 Drug: NS 0.9% 250 ml Route: IV; Rate: 1 bolus; Site: right forearm; jl7 12:00 Follow up: IV Status: Completed infusion aa5 13:48 Drug: NS 0.9% 250 ml Route: IV; Rate: 1 bolus; Site: right forearm; jl7 14:25 Follow up: IV Status: Completed infusion aa5 Disposition: 09/26/18 13:[address] [facility]. Diagnosis are Dizziness and giddiness, Acute kidney injury. - Reason for transfer: Higher level of care. - Accepting physician is Dr. Escalante. - Condition is Stable. - Problem is new. - Symptoms have improved. Signatures: Dispatcher [employer] EDMS Sissy Lees RN Bonilla Rosado MD MD rn Calderon, Audri, RN RN aa5 Yuki Johnson RN RN jl7 Corrections: (The following items were deleted from the chart) 15:30 13:35 09/26/2018 13:[address] [facility]. Diagnosis is aa5 Dizziness and giddiness; Acute kidney injury. Reason for transfer: Higher level of care. Accepting physician is Dr. Escalante. Condition is Stable. Problem is new. Symptoms have improved. rn
--- NOTE | 2018-09-26 13:36 | ER ---
Nurse's Notes [facility] Name: Nii Zelaya Age: 68 yrs Sex: Male : 1950 Arrival Date: 09/26/2018 Time: 10:54 Bed 5 Private MD: JEREMIAS MCDOWELL Diagnosis: Dizziness and giddiness;Acute kidney injury Presentation: 09/26 11:01 Presenting complaint: Patient states: Sent from [place] after low BP reading and c/o aj dizziness. Patient is alert and ambulatory with no difficulty in lobby. Reports dizziness when turning head or bending over. Transition of care: patient was not received from another setting of care. Onset of symptoms was September 24, 2018. Risk Assessment: Do you want to hurt yourself or someone else? Patient reports no desire to harm self or others. Initial Sepsis Screen: Does the patient meet any 2 criteria? No. Patient's initial sepsis screen is negative. Does the patient have a suspected source of infection? No. Patient's initial sepsis screen is negative. Care prior to arrival: None. 11:01 Method Of Arrival: Ambulatory aj 11:01 Acuity: WILLIAM 3 aj Triage Assessment: 11:03 General: Appears in no apparent distress. comfortable, Behavior is calm, cooperative, aj appropriate for age. Pain: Denies pain. Neuro: Level of Consciousness is awake, alert, obeys commands, Oriented to person, place, time, situation, Appropriate for age Reports dizziness. Respiratory: Airway is patent Respiratory effort is even, unlabored, Respiratory pattern is regular, symmetrical. Derm: Skin is intact, is healthy with good turgor, Skin is pink, warm \T\ dry. normal. Historical: - Allergies: 11:03 No Known Allergies; aj - PMHx: 11:03 CHF; on Heart Transplant List; pacemaker/defbrilator; aj - PSHx: 11:03 CABG; aj - Immunization history:: Adult Immunizations up to date. - Social history:: Smoking status: Patient/guardian denies using tobacco. - Ebola Screening: : Patient negative for fever greater than or equal to 101.5 degrees Fahrenheit, and additional compatible Ebola Virus Disease symptoms Patient denies exposure to infectious person Patient denies travel to an Ebola-affected area in the 21 days before illness onset No symptoms or risks identified at this time. - Family history:: not pertinent. - Hospitalizations: : No recent hospitalization is reported. Screenin:15 Abuse screen: Denies threats or abuse. Nutritional screening: No deficits noted. aa5 Tuberculosis screening: No symptoms or risk factors identified. Fall Risk None identified. Assessment: 11:15 General: Appears comfortable, Behavior is calm, cooperative. Pain: Denies pain. Neuro: aa5 Level of Consciousness is awake, alert, obeys commands, Oriented to person, place, time, situation, Pattern Stamper are equal bilaterally Moves all extremities. Speech is normal, Facial symmetry appears normal, Pupils are PERRLA, Reports dizziness with position changes that began yesterday. . Cardiovascular: Heart tones S1 S2 present Rhythm is paced. Respiratory: Airway is patent Respiratory effort is even, unlabored, Respiratory pattern is regular, symmetrical, Breath sounds are clear bilaterally. Denies cough, shortness of breath. GI: Abdomen is round non-distended, Bowel sounds present X 4 quads. Abd is soft and non tender X 4 quads. Patient currently denies nausea, vomiting. : No signs and/or symptoms were reported regarding the genitourinary system. EENT: No signs and/or symptoms were reported regarding the EENT system. Derm: Skin is pink, warm \T\ dry. Musculoskeletal: Range of motion: intact in all extremities. 12:00 Reassessment: Patient and/or family updated on plan of care and expected duration. Pain aa5 level reassessed. Patient is alert, oriented x 3, equal unlabored respirations, skin warm/dry/pink. Patient denies pain at this time. 12:30 Reassessment: Attempting transfer to [facility]. aa5 13:00 Reassessment: Patient and/or family updated on plan of care and expected duration. Pain aa5 level reassessed. Patient is alert, oriented x 3, equal unlabored respirations, skin warm/dry/pink. Patient denies pain at this time. Pt sitting up in bed, call balderas remains within reach. Paced rhythm. . 14:00 Reassessment: Pt resting in bed with eyes closed, respirations even and unlabored, skin aa5 is normal/warm/dry. . 15:00 Reassessment: Pt resting in bed with eyes closed, respirations even and unlabored, skin aa5 is pink/warm/dry. Awaiting EMS for transfer. . Vital Signs: 11:03 BP 136 / 72; Pulse 84; Resp 18; Temp 97.7; Pulse Ox 99% on R/A; Weight 78.93 kg; Height aj 5 ft. 5 in. (165.10 cm); 11:40 BP 126 / 72; Pulse 60; Resp 16 S; Pulse Ox 98% on R/A; Pain 0/10; aa5 12:00 BP 128 / 66; Pulse 60; Resp 16 S; Pulse Ox 98% on R/A; aa5 12:30 BP 134 / 72; Pulse 60; Resp 16 S; Pulse Ox 98% on R/A; aa5 13:00 BP 133 / 72; Pulse 60; Resp 18 S; Pulse Ox 99% on R/A; aa5 13:30 BP 123 / 73; Pulse 60; Resp 18 S; Pulse Ox 98% on R/A; aa5 14:00 BP 136 / 61; Pulse 60; Resp 16 S; Temp 98.0(TE); Pulse Ox 98% on R/A; Pain 0/10; aa5 15:00 BP 128 / 82; Pulse 60; Resp 16 S; Temp 97.5(TE); Pulse Ox 98% on R/A; aa5 11:03 Body Mass Index 28.95 (78.93 kg, 165.10 cm) aj ED Course: 10:54 Patient arrived in ED. mr 10:55 [facility], JEREMIAS is Private Physician. mr 11:03 Triage completed. aj 11:03 Arm band placed on left wrist. Patient placed in an exam room. aj 11:04 Bonilla Vasquez MD is Attending Physician. rn 11:15 quality assurance monitor on. Pulse ox on. NIBP on. aa5 11:15 Placed in gown. Bed in low position. Call light in reach. Side rails up X 1. Adult w/ aa5 patient. 11:17 Yuki Johnson, RN is Primary Nurse. jl7 11:17 Primary Nurse role handed off by Ykui Johnson RN aa5 11:17 Yina Reagan, RN is Primary Nurse. aa5 11:24 EKG done, by service center technician. reviewed by Bonilla Vasquez MD. at1 11:34 Initial lab(s) drawn, by in, sent to lab. Inserted saline lock: 20 gauge in right jl7 forearm, using aseptic technique. Blood collected. 11:35 Patient has correct armband on for positive identification. Placed in gown. Bed in low jl7 position. Call light in reach. Side rails up X 1. 11:38 X-ray completed. Portable x-ray completed in exam room. Patient tolerated procedure jb2 well. 11:38 XRAY Chest (1 view) In Process Unspecified. EDMS 11:53 No provider procedures requiring assistance completed. aa5 13:50 \T\1303 initiated transfer with Kenia at the [facility] transfer center. \T\1332 Dr. clayton Escalante accepted the patient in transfer/ \T\1332 administrative approval given by Kenia Alvarado RN Core Laying Machine Operator/ Pt going to [id number]/ Report to be called to [phone]. 14:10 Report given to DILIP Cantu (at [facility]). aa5 15:28 Patient transferred, IV remains in place. aa5 Administered Medications: 11:20 Drug: NS 0.9% 250 ml Route: IV; Rate: 1 bolus; Site: right forearm; jl7 12:00 Follow up: IV Status: Completed infusion aa5 13:48 Drug: NS 0.9% 250 ml Route: IV; Rate: 1 bolus; Site: right forearm; jl7 14:25 Follow up: IV Status: Completed infusion aa5 Outcome: 13:35 ER care complete, transfer ordered by . rn 15:28 Transferred by ground EMS to [facility], Transfer form completed. aa5 X-rays sent w/ patient. 15:28 Condition: stable 15:28 Instructed on the need for transfer, Demonstrated understanding of instructions. 15:30 Patient left the ED. aa5 Signatures: Dispatcher [employer] EDMS Sissy Lees, RN DILIP khalil Thelma Benton Jesse jb2 Bonilla Vasquez MD MD rn Calderon, Audri, RN RN aa5 Sissy Morales, swimming pool salesperson EKG Tat1 Yuki Johnson RN RN jl7 Paty Bashir Corrections: (The following items were deleted from the chart) 11:04 11:01 Presenting complaint: Patient states: [facility] reading and c/o aj dizziness. Patient is alert and ambulatory with no difficulty in lobby. simran 11:53 11:35 quality assurance monitor on. Pulse ox on. NIBP on. jl7 aa5
== END 2018-09-26 15:30 | disposition short-term general hospital (02) ==
LOC: ER 10:51
DX: N17.9 Acute kidney failure, unspecified (principal); I50.9 Heart failure, unspecified; Z95.1 Presence of aortocoronary bypass graft; Z95.810 Presence of automatic (implantable) cardiac defibrillator
CPT/HCPCS: 36415; 71045; 80048; 83735; 83880; 84484; 85025; 93005; 96360; 96365; 99285

== ENCOUNTER 2019-06-11 11:05 | Observation (INO) | payer OTHER ==
--- OUTSIDE RECORDS SUMMARY | 2019-06-11 11:09 | XMS REPORT | Clinical Summary ---
:1950 Author Organization [facility] Address [address] [place] [address] Care Team Providers Name Role Phone Samia Kahn Process Development Manager Unavailable Mami Bains MD Primary Care Provider Melo Lance Unavailable Allergies No Known Allergies Medications Medication Sig Dispensed Refills Start End Date Status Date nitroglycerin Place 0.4 mg under 0 Active (NITROSTAT) 0.4 MG the tongue every 5 SL tablet (five) minutes as needed for Chest pain. pregabalin (LYRICA) Take 50 mg by 0 Active 50 MG mouth 3 (three) capsuleIndications: times daily . Cardiomyopathy (HCC), Awaiting organ transplant omeprazole Take 20 mg by 0 Active (PRILOSEC) 20 MG mouth daily . capsule clopidogrel Take 75 mg by 0 Active (PLAVIX) 75 mg mouth daily. tablet docusate sodium Take 100 mg by 0 Active (COLACE) 100 MG mouth 2 (two) capsule times daily. metoprolol Take 50 mg by 0 Active (TOPROL-XL) 50 MG mouth 2 (two) 24 hr tablet times daily . atorvastatin Take 1 tablet (80 30 tablet 5 Active (LIPITOR) 80 MG mg total) by mouth 8 tabletIndications: nightly. Awaiting organ transplant ranolazine (RANEXA) Take 1 tablet 60 tablet 5 Active 1,000 mg SR tablet (1,000 mg total) 8 by mouth 2 (two) times daily. meclizine HCl Take 12.5 mg by 0 Active (MECLIZINE ORAL) mouth 2 (two) times daily . insulin glargine Inject 60 Units 0 Active (LANTUS) 100 subcutaneously unit/mL injection nightly Use as directed . sacubitril-valsarta Take 1 tablet by 0 Active n (ENTRESTO) 97-103 mouth 2 (two) mg Tab times daily. amLODIPine Take 1 tablet (2.5 30 tablet 11 Active (NORVASC) 2.5 MG mg total) by mouth 8 tablet daily. UNKNOWNIndications: Take by mouth 2 0 Active diabetes mellitus (two) times daily Regenex . isosorbide Take 1 tablet (60 30 tablet 12/20/19 Active mononitrate (IMDUR) mg total) by mouth 9 20 60 MG 24 hr tablet daily. glipiZIDE Take 5 mg by mouth 0 12/30/19 Discontinued (GLUCOTROL) 10 MG 2 (two) times 4 19 tabletIndications: daily before meals Cardiomyopathy . (HCC), Awaiting organ transplant insulin detemir Inject 65 Units 0 07/24/20 Discontinued (LEVEMIR) 100 subcutaneously 2 18 unit/mL injection (two) times daily . furosemide (LASIX) Take 1 tablet (20 30 tablet 09/27/20 Discontinued 20 MG tablet mg total) by mouth 8 18 daily. aspirin 81 MG Take 1 tablet (81 30 tablet 02/09/20 chewable tablet mg total) by mouth 8 19 daily. amLODIPine Take 2.5 mg by 0 09/20/20 Discontinued (NORVASC) 2.5 MG mouth daily. 18 tablet hydrOXYzine Take 25 mg by 0 07/24/20 Discontinued (ATARAX) 25 MG mouth every night 18 tablet as needed for Itching. sacubitril-valsarta Take 1 tablet by 0 09/20/20 Discontinued n (ENTRESTO) 49-51 mouth 2 (two) 18 mg Tab times daily. isosorbide Take 20 mg by 0 09/20/20 Discontinued dinitrate (ISORDIL) mouth 2 (two) 18 20 MG tablet times daily. isosorbide Take 1 tablet (60 30 tablet 11 12/20/19 Discontinued mononitrate (IMDUR) mg total) by mouth 8 19 60 MG 24 hr tablet daily. Active Problems Patient Care Coordination Note [...] of 25%, and regional wall motion abnormalities. RHC 09/13/2017 Right heart pressure readings were as [...] Estuardo Jiménez and was referred to the [facility] for follow-up with a transplant physician. His [...] 100% Cicumflex/OM Branches - 100% proximal LCx. [place] OM1 distal to the graft anastomosis is 100% and the other OM2 is diffusely diseased Right Coronary - diffusely 80-90% diseased narrow vessel KING to LAD: patent . Distal LAD is diffusely diseased. SVG-RCA : 100% old known chronic occlusion SVG-OM : aneurysmal middle segment with tapering at distal end where there is 40-50% stenosis Myocardial Perfusion Study ( Licensed Clinical Social Worker of [place]) 10/18/2015 Moderate anterior nontransmural scar with moderate [...] per Mary Escalante MD Problem Noted Date Heart failure 12/30/2018 Acute kidney injury 09/27/2018 CHF (congestive heart failure) 07/24/2018 Chronic combined systolic and diastolic CHF (congestive heart failure) 2017 [place] (myocardial infarction) 12/25/2017 Overview: S/p CABG(2000), s/p Stents TIA (transient ischemic attack) 12/25/2017 Overview: 2014 Former smoker 12/25/2017 CKD (chronic kidney disease) 12/25/2017 GERD (gastroesophageal reflux disease) 12/25/2017 Depression 12/25/2017 Anxiety 12/25/2017 Type 2 diabetes mellitus without complication 09/04/2016 AICD (automatic cardioverter/defibrillator) present 06/15/2016 Atherosclerosis of coronary artery bypass graft of [facility] heart with 2013 unstable angina pectoris HTN (hypertension) 07/29/2013 Hyperlipidemia 07/29/2013 CAD (coronary artery disease) 05/08/2013 Ischemic cardiomyopathy Encounters Date Type Specialty Care Team Description 06/03/2019 Telephone Transplant Karson, Waitlist Maintenance DILIP Harris (Clinic appointment) 05/26/2019 Documentation Transplant Mami Kelley 05/12/2019 Telephone Transplant Karson, Follow-up DILIP Harris (Appointment) 05/08/2019 Telephone Transplant Karson Waitlist Maintenance; DILIP Harris Follow-up (PRA & Clinic visit) 05/08/2019 Documentation Transplant Mami Kelley 04/26/2019 Abstract Transplant Mami Kelley 04/14/2019 Telephone Transplant Karson, Waitlist Maintenance DILIP Harris (Records) 04/09/2019 Telephone Transplant Karson Waitlist Maintenance; DILIP Harris Insurance Call 03/26/2019 Documentation Transplant Karen Alonso 03/20/2019 Documentation Transplant Mami Kelley 03/20/2019 Documentation Transplant Karen Alonso 03/20/2019 Telephone Transplant vivien Alonso 03/18/2019 Documentation Transplant Mami Kelley 03/13/2019 Documentation Transplant Steven Ty, DILIP 12/30/2018 Surgery Mary Escalante R & L HEART CATH ONLY MD Luis - NO ANGIOS 12/30/2018 Hospital Encounter Mary Escalante Acute kidney injury MD Luis (HCC) 12/30/2018 Orders Only General Internal Medicine 12/20/2018 Office Visit Transplant Mary Escalante Chronic combined systolic and diastolic CHF (congestive heart failure) (HCC); MD Luis Type 2 diabetes mellitus without complication, unspecified whether terminal operations manager insulin use (HCC); Awaiting organ transplant status 12/12/2018 Documentation Transplant Steven Ty, DILIP 09/26/2018 - Hospital Encounter Cardiology Mary Escalante AICD (automatic 09/28/2018 MD Luis cardioverter/defibril Breanne Garcia lator) present 09/20/2018 Office Visit Transplant Mary Escalante Hyperlipidemia, unspecified hyperlipidemia type; MD Luis Chronic combined systolic and diastolic CHF (congestive heart failure) (HCC); Type 2 diabetes mellitus without complication, unspecified whether terminal operations manager insulin use (HCC); Awaiting organ transplant status; AICD (automatic cardioverter/defibrillator) present 09/20/2018 Orders Only Transplant Karson, Awaiting organ DILIP Harrisregional manager status (Primary Dx) 09/10/2018 Telephone Transplant Emma Haq Appointment M 09/09/2018 Initial consult Transplant Mary Escalante MD Vanzandt, Michelle 09/09/2018 Abstract Transplant Emma Haq M 09/09/2018 Documentation Transplant Karen Alonso 08/27/2018 Telephone Transplant Lucho Nunez, Waitlist Maintenance RN 08/27/2018 Documentation Transplant Mami Kelley 08/23/2018 Telephone Transplant Rush Ferrera, Advice Only (unos) RN 07/25/2018 Orders Only Transplant Bessie Boles Hyperlipidemia, unspecified hyperlipidemia type (Primary Dx); DILIP Cordova AICD (automatic cardioverter/defibrillator) present; Type 2 diabetes mellitus without complication, unspecified whether group home insulin use (HCC); Chronic combined systolic and diastolic CHF (congestive heart failure) (HCC) 07/24/2018 Surgery Mary Escalante MD 07/24/2018 Hospital Encounter Mary Escalante MD Bandeali, Salman Jamaluddin, MD 07/23/2018 Orders Only Cardiology Shoshana Mckeon MD after 06/10/2018 Immunizations Name Dates Previously Given Next Due [...] Vital Sign Reading Time Taken Blood Pressure 131/66 12/30/2018 9:15 PM SOLAR PROCESS ENGINEER Pulse 62 12/30/2018 9:15 PM SOLAR PROCESS ENGINEER Temperature 36.3 C (97.4 F) 12/30/2018 7:22 AM SOLAR PROCESS ENGINEER Respiratory Rate 16 12/30/2018 9:15 PM SOLAR PROCESS ENGINEER Oxygen Saturation 100% 12/30/2018 6:46 PM SOLAR PROCESS ENGINEER Inhaled Oxygen Concentration - - Weight 77.1 kg (170 lb) 12/30/2018 7:22 AM SOLAR PROCESS ENGINEER Height 177.8 cm (5' 10") 12/30/2018 7:22 AM SOLAR PROCESS ENGINEER Body Mass Index 24.39 12/30/2018 7:22 AM SOLAR PROCESS ENGINEER Plan of Treatment Not on file Implants Implanted Type Area Syruper Device Shelf Model / Identifier Expiration Serial / Date Lot Device Clsr Angio-Seal Vip 6fr [id number] - [id number] Cardiovascular N/A: [employer] 07/12/2017 [id number] / Implanted: Qty: 1 on 10/19/2016 by Estuardo Jiménez MD [facility] MED: CARDIAC / SURG [id number] Device Clsr Angio-Seal Vip 6fr [id number] - [id number] Cardiovascular Right: [employer] BRITT[employer]IE 07/12/2018 [id number] / Implanted: Qty: 1 on 05/03/2017 by Estuardo Jiménez MD [employer] MED: CARDIAC / SURG [id number] Procedures Procedure Name Priority Date/Time Associated Diagnosis Comments CARDIAC CATH REPORT - 01/06/2019 2:00 PM SCAN SOLAR PROCESS ENGINEER R & L HEART CATH ONLY 12/30/2018 4:12 PM Chronic systolic heart - NO ANGIOS SOLAR PROCESS ENGINEER failure (HCC) Case Notes POP6 POCT-GLUCOSE METER Routine 12/30/2018 2:53 PM SOLAR PROCESS ENGINEER POCT-GLUCOSE METER Routine 12/30/2018 1:17 PM SOLAR PROCESS ENGINEER POCT-GLUCOSE METER Routine 12/30/2018 12:57 PM SOLAR PROCESS ENGINEER ECG 12-LEAD Routine 12/30/2018 8:25 AM SOLAR PROCESS ENGINEER Procedure Note - Interface, External Ris In - 12/30/2018 8:33 AM SOLAR PROCESS ENGINEER Ventricular Rate 64 BPM Atrial Rate 91 BPM QRS Duration 100 ms Q-T Interval 424 ms QTC Calculation(Bazett) 437 ms R [place] 9 degrees T [place] 256 degrees Atrial-paced rhythm with prolonged AV conduction Low voltage QRS Septal infarct (cited on or before 26-SEP-2018) T wave abnormality, consider inferior ischemia Abnormal ECG When compared with ECG of 26-SEP-2018 17:47, Electronic atrial pacemaker has replaced Sinus rhythm ST now depressed in Inferior leads T wave inversion now evident in Inferior leads ECG 12-LEAD Routine 12/30/2018 8:25 Results for this AM SOLAR PROCESS ENGINEER procedure are in the results section. BASIC METABOLIC Routine 12/30/2018 8:25 Results for this PANEL (7) AM SOLAR PROCESS ENGINEER procedure are in the results section. CBC W/PLT COUNT & STAT 12/20/2018 8:57 Chronic combined Results for this AUTO DIFFERENTIAL AM SOLAR PROCESS ENGINEER systolic and procedure are in diastolic CHF the results (congestive heart section. failure) ([facility]) FLOW PRA CLASS II Routine 12/20/2018 8:57 Awaiting organ Results for this WITH REFLEX TO AM SOLAR PROCESS ENGINEER transplant status procedure are in ANTIBODY SPECIFICITY the results section. FLOW PRA CLASS I Routine 12/20/2018 8:57 Awaiting organ Results for this WITH REFLEX TO AM SOLAR PROCESS ENGINEER transplant status procedure are in ANTIBODY SPECIFICITY the results section. HEMOGLOBIN A1C STAT 12/20/2018 8:57 Type 2 diabetes Results for this AM SOLAR PROCESS ENGINEER mellitus without procedure are in complication, the results unspecified whether section. terminal operations manager insulin use ([facility]) B-TYPE NATRIURETIC STAT 12/20/2018 8:57 Chronic combined Results for this FACTOR (BNP) AM SOLAR PROCESS ENGINEER systolic and procedure are in diastolic CHF the results (congestive heart section. failure) ([facility]) BASIC METABOLIC STAT 12/20/2018 8:57 Chronic combined Results for this PANEL (7) AM SOLAR PROCESS ENGINEER systolic and procedure are in diastolic CHF the results (congestive heart section. failure) ([facility]) CBC W/PLT COUNT & STAT 12/20/2018 8:57 Chronic combined Results for this AUTO DIFFERENTIAL AM SOLAR PROCESS ENGINEER systolic and procedure are in diastolic CHF the results (congestive heart section. failure) ([facility]) RHYTHM STRIP - SCAN 10/01/2018 9:45 AM SOLAR PROCESS ENGINEER REPORT OF PROCEDURE 10/01/2018 9:45 - ENDOSCOPY SCAN AM SOLAR PROCESS ENGINEER POCT-GLUCOSE METER Routine 09/28/2018 12:06 Results for this PM SOLAR PROCESS ENGINEER procedure are in the results section. POCT-GLUCOSE METER Routine 09/28/2018 9:26 Results for this AM SOLAR PROCESS ENGINEER procedure are in the results section. POCT-GLUCOSE METER Routine 09/28/2018 8:45 Results for this AM SOLAR PROCESS ENGINEER procedure are in the results section. CBC (HEMOGRAM ONLY) Routine 09/28/2018 4:25 Results for this AM SOLAR PROCESS ENGINEER procedure are in the results section. MAGNESIUM Routine 09/28/2018 4:25 Results for this AM SOLAR PROCESS ENGINEER procedure are in the results section. BASIC METABOLIC Routine 09/28/2018 4:25 Results for this PANEL (7) AM SOLAR PROCESS ENGINEER procedure are in the results section. POCT-GLUCOSE METER Routine 09/27/2018 9:12 Results for this PM SOLAR PROCESS ENGINEER procedure are in the results section. POCT-GLUCOSE METER Routine 09/27/2018 5:15 Results for this PM SOLAR PROCESS ENGINEER procedure are in the results section. POCT-GLUCOSE METER Routine 09/27/2018 12:33 Results for this PM SOLAR PROCESS ENGINEER procedure are in the results section. POCT-GLUCOSE METER Routine 09/27/2018 7:39 Results for this AM SOLAR PROCESS ENGINEER procedure are in the results section. POCT-GLUCOSE METER Routine 09/26/2018 9:03 Results for this PM SOLAR PROCESS ENGINEER procedure are in the results section. B-TYPE NATRIURETIC Routine 09/26/2018 6:57 Results for this FACTOR (BNP) PM SOLAR PROCESS ENGINEER procedure are in the results section. COMPREHENSIVE Routine 09/26/2018 6:57 Results for this METABOLIC PANEL PM SOLAR PROCESS ENGINEER procedure are in the results section. HEMOGLOBIN A1C AP Routine 09/26/2018 6:16 Results for this PM SOLAR PROCESS ENGINEER procedure are in the results section. CBC (HEMOGRAM ONLY) Routine 09/26/2018 6:16 Results for this PM SOLAR PROCESS ENGINEER procedure are in the results section. ECG 12-LEAD Routine 09/26/2018 5:47 Results for this PM SOLAR PROCESS ENGINEER procedure are in the results section. POCT-GLUCOSE METER Routine 09/26/2018 5:15 Results for this PM SOLAR PROCESS ENGINEER procedure are in the results section. FLOW PRA CLASS II Routine 09/20/2018 12:05 Awaiting organ Results for this WITH REFLEX TO PM SOLAR PROCESS ENGINEER transplant status procedure are in ANTIBODY SPECIFICITY the results section. FLOW PRA CLASS I Routine 09/20/2018 12:05 Awaiting organ Results for this WITH REFLEX TO PM SOLAR PROCESS ENGINEER transplant status procedure are in ANTIBODY SPECIFICITY the results section. CBC W/PLT COUNT & STAT 09/20/2018 9:36 Chronic combined Results for this AUTO DIFFERENTIAL AM SOLAR PROCESS ENGINEER systolic and procedure are in diastolic CHF the results (congestive heart section. failure) ([facility]) HEMOGLOBIN A1C STAT 09/20/2018 9:36 Type 2 diabetes Results for this AM SOLAR PROCESS ENGINEER mellitus without procedure are in complication, the results unspecified whether section. terminal operations manager insulin use ([facility]) B-TYPE NATRIURETIC STAT 09/20/2018 9:36 Chronic combined Results for this FACTOR (BNP) AM SOLAR PROCESS ENGINEER systolic and procedure are in diastolic CHF the results (congestive heart section. failure) ([facility]) CBC W/PLT COUNT & STAT 09/20/2018 9:36 Chronic combined Results for this AUTO DIFFERENTIAL AM SOLAR PROCESS ENGINEER systolic and procedure are in diastolic CHF the results (congestive heart section. failure) ([facility]) BASIC METABOLIC STAT 09/20/2018 9:35 Chronic combined Results for this PANEL (7) AM SOLAR PROCESS ENGINEER systolic and procedure are in diastolic CHF the results (congestive heart section. failure) ([facility]) HEPATIC FUNCTION STAT 09/20/2018 9:35 Hyperlipidemia, Results for this PANEL AM SOLAR PROCESS ENGINEER unspecified procedure are in hyperlipidemia type the results section. LIPID PANEL STAT 09/20/2018 9:35 Hyperlipidemia, Results for this AM SOLAR PROCESS ENGINEER unspecified procedure are in hyperlipidemia type the results section. TRANSFUSION SERVICE 07/25/2018 5:53 REPORT - SCAN PM CDT CARDIAC CATH REPORT 07/25/2018 1:41 - SCAN PM CDT R CATH 07/24/2018 1:00 Chronic combined PM CDT systolic and diastolic congestive heart failure (HCC) Case Notes POP6 REQUESTING AFTER 12PM. POCT-GLUCOSE METER Routine 07/24/2018 12:50 PM CDT CBC W/PLT COUNT & AUTO STAT 07/24/2018 9:39 AM CDT Results for this DIFFERENTIAL procedure are in the results section. TYPE AND SCREEN, AUTOMATED Routine 07/24/2018 9:39 AM CDT CBC W/PLT COUNT & AUTO STAT 07/24/2018 9:39 AM CDT Results for this DIFFERENTIAL procedure are in the results section. BASIC METABOLIC PANEL (7) STAT 07/24/2018 9:39 AM CDT after 06/10/2018 Results CARDIAC CATH REPORT - SCAN (01/06/2019 2:00 PM SOLAR PROCESS ENGINEER) Narrative Performed At POC-Glucose meter (12/30/2018 2:53 PM SOLAR PROCESS ENGINEER)Only the most recent of13 resultswithin the time period is included. POC-Glucose Meter 116 (H)Comment: TESTED AT 70 - 110 mg/dL [facility] [address] [facility] [id number] Specimen Blood Performing Organization Address City/State/Zipcode Phone Number [address] [address] CENTER ECG 12 lead (12/30/2018 8:25 AM SOLAR PROCESS ENGINEER)Only the most recent of2 resultswithin the time period is included. Specimen Narrative Performed At Ventricular Rate 64 BPM GE MUSE Atrial Rate 91 BPM QRS Duration 100 ms Q-T Interval 424 ms QTC Calculation(Bazett) 437 ms R [place] 9 degrees T [place] 256 degrees Atrial-paced rhythm with prolonged AV conduction Low voltage QRS Septal infarct (cited on or before 26-SEP-2018) T wave abnormality, consider inferior ischemia Abnormal ECG When compared with ECG of 26-SEP-2018 17:47, Electronic atrial pacemaker has replaced Sinus rhythm ST now depressed in Inferior leads T wave inversion now evident in Inferior leads Confirmed by MD Lopez, [id number] on 12/30/2018 5:10:50 PM Procedure Note Interface, External Ris In - 12/30/2018 5:10 PM SOLAR PROCESS ENGINEER Ventricular Rate 64 BPM Atrial Rate 91 BPM QRS Duration 100 ms Q-T Interval 424 ms QTC Calculation(Bazett) 437 ms R [place] 9 degrees T [place] 256 degrees Atrial-paced rhythm with prolonged AV conduction Low voltage QRS Septal infarct (cited on or before 26-SEP-2018) T wave abnormality, consider inferior ischemia Abnormal ECG When compared with ECG of 26-SEP-2018 17:47, Electronic atrial pacemaker has replaced Sinus rhythm ST now depressed in Inferior leads T wave inversion now evident in Inferior leads Confirmed by MD Lopez, [facility] ([id number][facility] on 12/30/2018 5:10:50 PM Performing Organization Address City/[facility] Phone Number [facility] Basic metabolic panel (12/30/2018 8:25 AM SOLAR PROCESS ENGINEER)Only the most recent of5 resultswithin the time period is included. Sodium 139 136 - 145 meq/L [facility] Potassium 3.8 3.5 - 5.1 meq/L [facility] Chloride 110 (H) 98 - 107 meq/L [facility] CO2 22 22 - 29 meq/L [facility] BUN 20 7 - 21 mg/dL [facility] Creatinine 1.38 (H) 0.57 - 1.25 mg/dL [facility] Glucose 100 70 - 105 mg/dL [facility] Calcium 9.5 8.4 - 10.2 mg/dL [facility] EGFR 51Comment: ESTIMATED GFR IS mL/min/1.73 sq m [facility] NOT ACCURATE CREATININE [facility] CLEARANCE IN PREDICTING GLOMERULAR FILTRATION RATE. ESTIMATED GFR IS NOT APPLICABLE FOR DIALYSIS PATIENTS. Specimen Blood Performing Organization Address City/[facility] Phone Number [place] [phone] [place] [address] CENTER FLOW PRA CLASS II WITH REFLEX TO ANTIBODY SPECIFICITY (12/20/2018 8:57 AM SOLAR PROCESS ENGINEER) Only the most recent of2 resultswithin the time period is included. Flow Class II Percent Positive 0 [facility] Flow Class Report Comments [facility] Specimen Blood Narrative Performed At Disclaimer: [facility] This test was developed and its performance characteristics determined by the [facility] Laboratory. It has not been cleared or approved by the U.S. Food and Drug Administration. The FDA has determined that such clearance or approval is not necessary. This test is used for clinical purposes. It should not be regarded as investigational or for research. This laboratory is certified under the Clinical Laboratory Improvement Amendments of 1988 (CLIA-88) as qualified to perform high complexity clinical laboratory testing. Performing Organization Address City/[facility] Center[facility]m Phone Number [facility] ONE Antoine David, MS: MARIA ELENA SANTOS [address] [id number], CLIA#[id number] CAP#[id number] UNOS#[id number] FLOW PRA CLASS I WITH REFLEX TO ANTIBODY SPECIFICITY (12/20/2018 8:57 AM SOLAR PROCESS ENGINEER) Only the most recent of2 resultswithin the time period is included. Flow Class I Percent Positive 0 [facility] Flow Class Report Comments [facility] Specimen Blood Narrative Performed At Disclaimer: [facility] This test was developed and its performance characteristics determined by the [facility] Laboratory. It has not been cleared or approved by the U.S. Food and Drug Administration. The FDA has determined that such clearance or approval is not necessary. This test is used for clinical purposes. It should not be regarded as investigational or for research. This laboratory is certified under the Clinical Laboratory Improvement Amendments of 1988 (CLIA-88) as qualified to perform high complexity clinical laboratory testing. Performing Organization Address City/[facility] Phone Number [facility] ONE Antoine David, MS: MARIA ELENA SANTOS [address] [id number], CLIA#[id number] CAP#[id number] UNOS#[id number] CBC with platelet count + automated diff (12/20/2018 8:57 AM SOLAR PROCESS ENGINEER)Only the most recent of3 resultswithin the time period is included. WBC 6.5 3.5 - 10.5 K/L [facility] RBC 4.91 4.63 - 6.08 M/L [facility] Hemoglobin 14.0 13.7 - 17.5 GM/DL [facility] Hematocrit 42.2 40.1 - 51.0 % [facility] MCV 85.9 79.0 - 92.2 fL [facility] MCH 28.5 25.7 - 32.2 pg [facility] MCHC 33.2 32.3 - 36.5 GM/DL [facility] RDW 13.7 11.6 - 14.4 % [facility] Platelets 129 (L) 150 - 450 K/CU MM [facility] MPV 12.0 9.4 - 12.4 fL [facility] nRBC 0 0 - 0 /100 WBC [facility] % Neutros 58 % [facility] % Lymphs 27 % [facility] % Monos 9 % [facility] % Eos 6 % [facility] % Baso 1 % [facility] # Neutros 3.73 1.78 - 5.38 K/L [facility] # Lymphs 1.74 1.32 - 3.57 K/L [facility] # Monos 0.55 0.30 - 0.82 K/L [facility] # Eos 0.37 0.04 - 0.54 K/L [facility] # Baso 0.05 0.01 - 0.08 K/L [facility] Immature Granulocytes-Relative 0 0 - 1 % [facility] Specimen Blood Performing Organization Address City/State/Zipcode Phone Number [facility] [address] [place] [address] CENTER B-type Natriuretic Factor (BNP) (12/20/2018 8:57 AM SOLAR PROCESS ENGINEER)Only the most recent of3 resultswithin the time period is included. BNP 329 (H) 0 - 100 pg/mL [facility] Specimen Blood Performing Organization Address City/State/Zipcode Phone Number [facility] [address] [place], [place] [id number] [phone] MASTIC Hemoglobin A1c (12/20/2018 8:57 AM SOLAR PROCESS ENGINEER)Only the most recent of3 resultswithin the time period is included. Hemoglobin A1C 7.7 (H) 4.3 - 6.1 % [facility] Specimen Blood Performing Organization Address City/[facility]/Zipcode Phone Number [facility] [address] [place], [place] [id number] [phone] [facility] RHYTHM STRIP - SCAN (10/01/2018 9:45 AM SOLAR PROCESS ENGINEER) Narrative Performed At EKG-SCANNED (10/01/2018 9:45 AM SOLAR PROCESS ENGINEER) Narrative Performed At CBC (Hemogram only) (09/28/2018 4:25 AM SOLAR PROCESS ENGINEER)Only the most recent of2 resultswithin the time period is included. WBC 5.3 3.5 - 10.5 K/L [facility] RBC 4.09 (L) 4.63 - 6.08 M/L [facility] Hemoglobin 11.7 (L) 13.7 - 17.5 GM/DL [facility] Hematocrit 35.2 (L) 40.1 - 51.0 % [facility] MCV 86.1 79.0 - 92.2 fL [facility] MCH 28.6 25.7 - 32.2 pg [facility] MCHC 33.2 32.3 - 36.5 GM/DL [facility] RDW 15.0 (H) 11.6 - 14.4 % [facility] Platelets 94 (L) 150 - 450 K/CU MM [facility] MPV 12.2 9.4 - 12.4 fL [facility] nRBC 0 0 - 0 /100 WBC [facility] Specimen Blood Performing Organization Address City/State/Zipcode Phone Number [facility] [address] [place] [address] [facility] Magnesium (09/28/2018 4:25 AM SOLAR PROCESS ENGINEER) Magnesium 2.2 1.6 - 2.6 mg/dL [facility] Specimen Blood Performing Organization Address City/State/Zipcode Phone Number [place] [phone] [place] [address] [facility] Comprehensive metabolic panel (09/26/2018 6:57 PM SOLAR PROCESS ENGINEER) Protein, Total 7.0 6.0 - 8.3 gm/dL [facility] Albumin 4.2 3.5 - 5.0 g/dL [facility] Alkaline Phosphatase 57 40 - 150 U/L [facility] Total Bilirubin 0.5 0.2 - 1.2 mg/dL [facility] Sodium 136 136 - 145 meq/L [facility] Potassium 4.5 3.5 - 5.1 meq/L [facility] Chloride 106 98 - 107 meq/L [facility] CO2 22 22 - 29 meq/L [facility] BUN 33 (H) 7 - 21 mg/dL [facility] Creatinine 1.98 (H) 0.57 - 1.25 mg/dL [facility] Glucose 154 (H) 70 - 105 mg/dL [facility] Calcium 9.2 8.4 - 10.2 mg/dL [facility] AST 20 5 - 34 U/L [facility] ALT 21 6 - 55 U/L [facility] EGFR 34Comment: ESTIMATED GFR mL/min/1.73 sq m [facility] IS NOT ACCURATE [facility] CREATININE CLEARANCE IN PREDICTING GLOMERULAR FILTRATION RATE. ESTIMATED GFR IS NOT APPLICABLE FOR DIALYSIS PATIENTS. Specimen Blood Performing Organization Address City/[facility] Phone Number [address] [address] [place] Hepatic function panel (09/20/2018 9:35 AM SOLAR PROCESS ENGINEER) Protein, Total 7.6 6.0 - 8.3 gm/dL [facility] Albumin 4.5 3.5 - 5.0 g/dL [facility] Total Bilirubin 0.8 0.2 - 1.2 mg/dL [facility] Bilirubin, Direct 0.3 0.1 - 0.5 mg/dL [facility] Alkaline Phosphatase 74 40 - 150 U/L [facility] AST 18 5 - 34 U/L [facility] ALT 20 6 - 55 U/L [facility] Specimen Blood Performing Organization Address [facility] Phone Number [address] [address] [phone] [facility] Lipid panel (09/20/2018 9:35 AM SOLAR PROCESS ENGINEER) Triglycerides 291 mg/dL [facility] Cholesterol 166 mg/dL [facility] HDL 32 mg/dL [facility] LDL Calculated 76 mg/dL [facility] Specimen Blood Narrative Performed At Triglyceride Reference Range: [facility] Low Risk <150 [id number] High Risk 200-499 Very High Risk>=500 Cholesterol Reference Range: Low Risk <200 [id number] High Risk>240 HDL Cholesterol Reference Range: Low Risk >=60 High Risk <40 LDL Cholesterol Reference Range: Optimal<100 Near [id number] Very High >=190 Performing Organization Address City/[facility] Centercode Phone Number [address] [address] CENTER TRANSFUSION SERVICE REPORT - SCAN (07/25/2018 5:53 PM CDT) Narrative Performed At CARDIAC CATH REPORT - SCAN (07/25/2018 1:41 PM CDT) Narrative Performed At Type and screen, automated (07/24/2018 9:39 AM CDT) ABO/RH AUTOMATED (BEAKER) O [facility] Ab Scrn [facility] Specimen Blood Performing Organization Address City/State/Zipcode Phone Number [address] [address] after 06/10/2018 Insurance Payer Benefit Plan / Group Subscriber ID Type Phone Address [facility] xxxxxxxx Maps Contracted Advance Directives For more information, please contact:[address] [phone] Code Status Date Activated Date Inactivated Comments Full Code 12/30/2018 7:49 AM 12/31/2018 12:37 AM This code status was determined by: Patient Full Code 07/24/2018 9:21 AM 07/24/2018 6:28 [...]
--- OUTSIDE RECORDS SUMMARY | 2019-06-11 11:12 | XMS REPORT ---
:1950 Author Organization [facility] Address [address] [place] [address] Dr. Alvarez [address] [place] [address] Care Team Providers Name Role Phone RIN BRASWELL Unavailable Unavailable RULA PRATER Unavailable Unavailable ZOFIA WILLETT Unavailable Unavailable KUSHAL TATE Unavailable Unavailable Problems This patient has no known problems. Allergies, Adverse Reactions, Alerts This patient has no known allergies or adverse reactions. Medications This patient has no known medications. Results Test Description Test Time Test Comments Text Results Atomic Results Result Comments POCT-GLUCOSE METER 2018-12-30 14:55:00 Test Item Value Reference Range Comments POC-GLUCOSE METER (BEAKER) (test 116 mg/dL 70-110 TESTED AT [address] xegl=0346) [facility] [address] POCT-GLUCOSE [id number] 13:18:00 Test Item Value Reference Range Comments POC-GLUCOSE METER (BEAKER) 162 mg/dL 70-110 TESTED AT [address] (test mere=5485) [facility] [address] POCT-GLUCOSE [id number] 13:00:00 Test Item Value Reference Range Comments POC-GLUCOSE METER (BEAKER) 61 mg/dL 70-110 Notified DILIP VARMA/TESTED AT [facility] (test dpzt=7440) [address] [place] [address] BASIC METABOLIC [id number] 08:46:00 Test Item Value Reference Range Comments SODIUM (BEAKER) (test 139 meq/L 136-145 hxjv=128) POTASSIUM (BEAKER) (test 3.8 meq/L 3.5-5.1 enzo=990) CHLORIDE (BEAKER) (test 110 meq/L 98-107 ecyb=265) CO2 (BEAKER) (test 22 meq/L 22-29 djlt=140) BLOOD UREA NITROGEN 20 mg/dL 7-21 (BEAKER) (test gqer=971) CREATININE (BEAKER) (test 1.38 mg/dL 0.57-1.25 jcrj=663) GLUCOSE RANDOM (BEAKER) 100 mg/dL 70-105 (test mezb=754) CALCIUM (BEAKER) (test 9.5 mg/dL 8.4-10.2 opnr=313) EGFR (BEAKER) (test 51 mL/min/1.73 sq m ESTIMATED GFR IS NOT cgya=3184) ACCURATE CREATININE CLEARANCE IN PREDICTING GLOMERULAR FILTRATION RATE. ESTIMATED GFR IS NOT APPLICABLE FOR DIALYSIS PATIENTS. HEMOGLOBIN [id number] 12:54:00 Test Item Value Reference Range Comments HEMOGLOBIN A1C (BEAKER) (test kprv=041) 7.7 % 4.3-6.1 B-TYPE NATRIURETIC FACTOR (BNP)2018-12-20 09:51:00 Test Item Value Reference Range Comments B-TYPE NATRIURETIC PEPTIDE (BEAKER) (test 329 pg/mL 0-100 zlwf=567) BASIC METABOLIC [id number] 09:38:00 Test Item Value Reference Range Comments SODIUM (BEAKER) (test 139 meq/L 136-145 ttda=333) POTASSIUM (BEAKER) (test 4.2 meq/L 3.5-5.1 Specimen slightly uqnm=463) hemolyzed CHLORIDE (BEAKER) (test 105 meq/L 98-107 auxz=383) CO2 (BEAKER) (test 25 meq/L 22-29 xnjo=217) BLOOD UREA NITROGEN 22 mg/dL 7-21 (BEAKER) (test eclu=030) CREATININE (BEAKER) (test 1.27 mg/dL 0.57-1.25 Specimen slightly asum=104) hemolyzed GLUCOSE RANDOM (BEAKER) 106 mg/dL 70-105 (test bywt=246) CALCIUM (BEAKER) (test 10.3 mg/dL 8.4-10.2 elkb=158) EGFR (BEAKER) (test 56 mL/min/1.73 sq m ESTIMATED GFR IS NOT crjw=1617) ACCURATE CREATININE CLEARANCE IN PREDICTING GLOMERULAR FILTRATION RATE. ESTIMATED GFR IS NOT APPLICABLE FOR DIALYSIS PATIENTS. CBC W/PLT COUNT & AUTO [id number] 09:23:00 Test Item Value Reference Range Comments WHITE BLOOD CELL COUNT (BEAKER) (test yokw=865) 6.5 K/ L 3.5-10.5 RED BLOOD CELL COUNT (BEAKER) (test ksuw=083) 4.91 M/ L 4.63-6.08 HEMOGLOBIN (BEAKER) (test sknf=484) 14.0 GM/DL 13.7-17.5 HEMATOCRIT (BEAKER) (test gszp=988) 42.2 % 40.1-51.0 MEAN CORPUSCULAR VOLUME (BEAKER) (test mkqp=515) 85.9 fL 79.0-92.2 MEAN CORPUSCULAR HEMOGLOBIN (BEAKER) (test 28.5 pg 25.7-32.2 nomz=206) MEAN CORPUSCULAR HEMOGLOBIN CONC (BEAKER) (test 33.2 GM/DL 32.3-36.5 wlgc=364) RED CELL DISTRIBUTION WIDTH (BEAKER) (test 13.7 % 11.6-14.4 qtbs=159) PLATELET COUNT (BEAKER) (test lrse=564) 129 K/CU MM 150-450 MEAN PLATELET VOLUME (BEAKER) (test hytm=092) 12.0 fL 9.4-12.4 NUCLEATED RED BLOOD CELLS (BEAKER) (test 0 /100 WBC 0-0 mcom=222) NEUTROPHILS RELATIVE PERCENT (BEAKER) (test 58 % znik=351) LYMPHOCYTES RELATIVE PERCENT (BEAKER) (test 27 % iafy=916) MONOCYTES RELATIVE PERCENT (BEAKER) (test 9 % rxeg=116) EOSINOPHILS RELATIVE PERCENT (BEAKER) (test 6 % uthh=420) BASOPHILS RELATIVE PERCENT (BEAKER) (test 1 % onrq=396) NEUTROPHILS ABSOLUTE COUNT (BEAKER) (test 3.73 K/ L 1.78-5.38 vqnq=425) LYMPHOCYTES ABSOLUTE COUNT (BEAKER) (test 1.74 K/ L 1.32-3.57 ozfu=441) MONOCYTES ABSOLUTE COUNT (BEAKER) (test 0.55 K/ L 0.30-0.82 arfo=681) EOSINOPHILS ABSOLUTE COUNT (BEAKER) (test 0.37 K/ L 0.04-0.54 wjku=529) BASOPHILS ABSOLUTE COUNT (BEAKER) (test 0.05 K/ L 0.01-0.08 niwj=320) IMMATURE GRANULOCYTES-RELATIVE PERCENT (BEAKER) 0 % 0-1 (test aoxj=5087) POCT-GLUCOSE [id number] 12:30:00 Test Item Value Reference Range Comments POC-GLUCOSE METER (BEAKER) 248 mg/dL 70-110 TESTED AT [facility] [address] [facility] (test nvxk=5841) [facility] [address] POCT-GLUCOSE [id number] 09:27:00 Test Item Value Reference Range Comments POC-GLUCOSE METER (BEAKER) 165 mg/dL 70-110 TESTED AT [facility] [address] [place] [address] (test atvf=3622) [facility] [address] POCT-GLUCOSE [id number] 08:48:00 Test Item Value Reference Range Comments POC-GLUCOSE METER (BEAKER) 69 mg/dL 70-110 Notified DILIP VARMA/TESTED AT [facility] (test klxx=6234) [address] [place] [address] [id number] 06:03:00 Test Item Value Reference Range Comments MAGNESIUM (BEAKER) (test pwaj=896) 2.2 mg/dL 1.6-2.6 BASIC METABOLIC [id number] 06:03:00 Test Item Value Reference Range Comments SODIUM (BEAKER) (test 138 meq/L 136-145 uhmt=556) POTASSIUM (BEAKER) (test 4.0 meq/L 3.5-5.1 dhur=438) CHLORIDE (BEAKER) (test 108 meq/L 98-107 szkz=961) CO2 (BEAKER) (test 21 meq/L 22-29 evvb=179) BLOOD UREA NITROGEN 28 mg/dL 7-21 (BEAKER) (test mjyv=389) CREATININE (BEAKER) (test 1.50 mg/dL 0.57-1.25 gicu=842) GLUCOSE RANDOM (BEAKER) 104 mg/dL 70-105 (test wbwn=089) CALCIUM (BEAKER) (test 9.6 mg/dL 8.4-10.2 pbmm=450) EGFR (BEAKER) (test 47 mL/min/1.73 sq m ESTIMATED GFR IS NOT xvhq=1601) ACCURATE CREATININE CLEARANCE IN PREDICTING GLOMERULAR FILTRATION RATE. ESTIMATED GFR IS NOT APPLICABLE FOR DIALYSIS PATIENTS. CBC (HEMOGRAM ONLY)2018-09-28 04:58:00 Test Item Value Reference Range Comments WHITE BLOOD CELL COUNT (BEAKER) (test arze=655) 5.3 K/ L 3.5-10.5 RED BLOOD CELL COUNT (BEAKER) (test qqpb=453) 4.09 M/ L 4.63-6.08 HEMOGLOBIN (BEAKER) (test hjke=155) 11.7 GM/DL 13.7-17.5 HEMATOCRIT (BEAKER) (test njnj=497) 35.2 % 40.1-51.0 MEAN CORPUSCULAR VOLUME (BEAKER) (test dhmg=275) 86.1 fL 79.0-92.2 MEAN CORPUSCULAR HEMOGLOBIN (BEAKER) (test 28.6 pg 25.7-32.2 dpyr=408) MEAN CORPUSCULAR HEMOGLOBIN CONC (BEAKER) (test 33.2 GM/DL 32.3-36.5 gadg=346) RED CELL DISTRIBUTION WIDTH (BEAKER) (test 15.0 % 11.6-14.4 joft=529) PLATELET COUNT (BEAKER) (test huwj=360) 94 K/CU MM 150-450 MEAN PLATELET VOLUME (BEAKER) (test hqbh=637) 12.2 fL 9.4-12.4 NUCLEATED RED BLOOD CELLS (BEAKER) (test 0 /100 WBC 0-0 ayar=482) POCT-GLUCOSE [id number] 21:28:00 Test Item Value Reference Range Comments POC-GLUCOSE METER (BEAKER) 264 mg/dL 70-110 TESTED AT [address] (test hdxf=6777) [facility] [address] POCT-GLUCOSE [id number] 17:39:00 Test Item Value Reference Range Comments POC-GLUCOSE METER (BEAKER) 163 mg/dL 70-110 TESTED AT [address] (test xyhm=0207) [facility] [address] POCT-GLUCOSE [id number] 12:45:00 Test Item Value Reference Range Comments POC-GLUCOSE METER (BEAKER) 190 mg/dL 70-110 TESTED AT [address] (test qtal=7661) [facility] [address] POCT-GLUCOSE [id number] 07:46:00 Test Item Value Reference Range Comments POC-GLUCOSE METER (BEAKER) 84 mg/dL 70-110 TESTED AT [address] (test dzzw=1628) [facility] [address] POCT-GLUCOSE [id number] 21:33:00 Test Item Value Reference Range Comments POC-GLUCOSE METER (BEAKER) 235 mg/dL 70-110 TESTED AT [facility] [address] (test evhw=2979) [facility] [address] HEMOGLOBIN [id number] 20:01:00 Test Item Value Reference Range Comments HEMOGLOBIN A1C (BEAKER) (test fphk=827) 7.9 % 4.3-6.1 B-TYPE NATRIURETIC FACTOR (BNP)2018-09-26 19:53:00 Test Item Value Reference Range Comments B-TYPE NATRIURETIC PEPTIDE (BEAKER) (test 166 pg/mL 0-100 twqr=343) COMPREHENSIVE METABOLIC [id number] 19:47:00 Test Item Value Reference Range Comments TOTAL PROTEIN (BEAKER) 7.0 gm/dL 6.0-8.3 (test vpho=400) ALBUMIN (BEAKER) (test 4.2 g/dL 3.5-5.0 nucr=0961) ALKALINE PHOSPHATASE 57 U/L 40-150 (BEAKER) (test mvai=341) BILIRUBIN TOTAL (BEAKER) 0.5 mg/dL 0.2-1.2 (test wioy=177) SODIUM (BEAKER) (test 136 meq/L 136-145 bozi=505) POTASSIUM (BEAKER) (test 4.5 meq/L 3.5-5.1 jnto=959) CHLORIDE (BEAKER) (test 106 meq/L 98-107 gtkx=104) CO2 (BEAKER) (test 22 meq/L 22-29 cxvh=646) BLOOD UREA NITROGEN 33 mg/dL 7-21 (BEAKER) (test zoqv=905) CREATININE (BEAKER) (test 1.98 mg/dL 0.57-1.25 xnrv=506) GLUCOSE RANDOM (BEAKER) 154 mg/dL 70-105 (test ngto=220) CALCIUM (BEAKER) (test 9.2 mg/dL 8.4-10.2 sioh=437) AST (SGOT) (BEAKER) (test 20 U/L 5-34 uhdo=701) ALT (SGPT) (BEAKER) (test 21 U/L 6-55 iyrt=375) EGFR (BEAKER) (test 34 mL/min/1.73 sq m ESTIMATED GFR IS NOT fqln=4886) ACCURATE CREATININE CLEARANCE IN PREDICTING GLOMERULAR FILTRATION RATE. ESTIMATED GFR IS NOT APPLICABLE FOR DIALYSIS PATIENTS. CBC (HEMOGRAM ONLY)2018-09-26 18:34:00 Test Item Value Reference Range Comments WHITE BLOOD CELL COUNT (BEAKER) (test atbb=848) 5.8 K/ L 3.5-10.5 RED BLOOD CELL COUNT (BEAKER) (test hiau=477) 4.33 M/ L 4.63-6.08 HEMOGLOBIN (BEAKER) (test vian=968) 12.4 GM/DL 13.7-17.5 HEMATOCRIT (BEAKER) (test dinz=408) 38.1 % 40.1-51.0 MEAN CORPUSCULAR VOLUME (BEAKER) (test rkcl=742) 88.0 fL 79.0-92.2 MEAN CORPUSCULAR HEMOGLOBIN (BEAKER) (test 28.6 pg 25.7-32.2 qfxi=592) MEAN CORPUSCULAR HEMOGLOBIN CONC (BEAKER) (test 32.5 GM/DL 32.3-36.5 cnos=188) RED CELL DISTRIBUTION WIDTH (BEAKER) (test 15.0 % 11.6-14.4 aexm=075) PLATELET COUNT (BEAKER) (test aiuv=315) 97 K/CU MM 150-450 MEAN PLATELET VOLUME (BEAKER) (test bkut=053) 12.2 fL 9.4-12.4 NUCLEATED RED BLOOD CELLS (BEAKER) (test 0 /100 WBC 0-0 tjkk=446) POCT-GLUCOSE [id number] 17:40:00 Test Item Value Reference Range Comments POC-GLUCOSE METER (BEAKER) 50 mg/dL 70-110 TESTED AT [facility] [address] [facility] (test hbyn=2239) [facility] [address] HEMOGLOBIN [id number] 13:29:00 Test Item Value Reference Range Comments HEMOGLOBIN A1C (BEAKER) (test wvwp=174) 7.9 % 4.3-6.1 B-TYPE NATRIURETIC FACTOR (BNP)2018-09-20 11:39:00 Test Item Value Reference Range Comments B-TYPE NATRIURETIC PEPTIDE (BEAKER) (test 237 pg/mL 0-100 uvbe=599) LIPID [id number] 11:35:00 Test Item Value Reference Range Comments TRIGLYCERIDES (BEAKER) (test lohg=720) 291 mg/dL CHOLESTEROL (BEAKER) (test efhg=995) 166 mg/dL HDL CHOLESTEROL (BEAKER) (test qwcf=784) 32 mg/dL LDL CHOLESTEROL CALCULATED (BEAKER) (test 76 mg/dL ofjb=104) Triglyceride Reference Range: Low Risk <150 Borderline 150- 199 High Risk 200-499 Very High Risk >=500Cholesterol Reference Range: Low Risk <200 Borderline 200-239 High Risk > 240HDL Cholesterol Reference Range: Low Risk >=60 High Risk <40LDL Cholesterol Reference Range: Optimal <100 Near Optimal 100-129 Borderline 130-159 High 160-189 Very High >=190BASIC METABOLIC [id number] 11:35:00 Test Item Value Reference Range Comments SODIUM (BEAKER) (test 136 meq/L 136-145 wrml=760) POTASSIUM (BEAKER) (test 4.2 meq/L 3.5-5.1 cpcc=870) CHLORIDE (BEAKER) (test 104 meq/L 98-107 bfby=164) CO2 (BEAKER) (test 21 meq/L 22-29 eolf=062) BLOOD UREA NITROGEN 36 mg/dL 7-21 (BEAKER) (test ldsb=958) CREATININE (BEAKER) (test 1.87 mg/dL 0.57-1.25 mulg=930) GLUCOSE RANDOM (BEAKER) 105 mg/dL 70-105 (test clwj=905) CALCIUM (BEAKER) (test 9.7 mg/dL 8.4-10.2 wwwf=911) EGFR (BEAKER) (test 36 mL/min/1.73 sq m ESTIMATED GFR IS NOT qpxq=8185) ACCURATE CREATININE CLEARANCE IN PREDICTING GLOMERULAR FILTRATION RATE. ESTIMATED GFR IS NOT APPLICABLE FOR DIALYSIS PATIENTS. HEPATIC FUNCTION [id number] 11:35:00 Test Item Value Reference Range Comments TOTAL PROTEIN (BEAKER) (test wpue=296) 7.6 gm/dL 6.0-8.3 ALBUMIN (BEAKER) (test tgid=1784) 4.5 g/dL 3.5-5.0 BILIRUBIN TOTAL (BEAKER) (test lkli=927) 0.8 mg/dL 0.2-1.2 BILIRUBIN DIRECT (BEAKER) (test nqze=979) 0.3 mg/dL 0.1-0.5 ALKALINE PHOSPHATASE (BEAKER) (test hgwv=462) 74 U/L 40-150 AST (SGOT) (BEAKER) (test mlmn=184) 18 U/L 5-34 ALT (SGPT) (BEAKER) (test fkbq=685) 20 U/L 6-55 CBC W/PLT COUNT & AUTO [id number] 10:44:00 Test Item Value Reference Range Comments WHITE BLOOD CELL COUNT (BEAKER) (test ghad=912) 6.4 K/ L 3.5-10.5 RED BLOOD CELL COUNT (BEAKER) (test inkf=059) 4.97 M/ L 4.63-6.08 HEMOGLOBIN (BEAKER) (test npcu=320) 14.4 GM/DL 13.7-17.5 HEMATOCRIT (BEAKER) (test gome=201) 42.3 % 40.1-51.0 MEAN CORPUSCULAR VOLUME (BEAKER) (test vtze=427) 85.1 fL 79.0-92.2 MEAN CORPUSCULAR HEMOGLOBIN (BEAKER) (test 29.0 pg 25.7-32.2 ipxv=477) MEAN CORPUSCULAR HEMOGLOBIN CONC (BEAKER) (test 34.0 GM/DL 32.3-36.5 ahmm=551) RED CELL DISTRIBUTION WIDTH (BEAKER) (test 14.5 % 11.6-14.4 jssa=650) PLATELET COUNT (BEAKER) (test wcij=392) 128 K/CU MM 150-450 MEAN PLATELET VOLUME (BEAKER) (test uqgy=750) 13.1 fL 9.4-12.4 NUCLEATED RED BLOOD CELLS (BEAKER) (test 0 /100 WBC 0-0 xudi=975) NEUTROPHILS RELATIVE PERCENT (BEAKER) (test 57 % nwxk=905) LYMPHOCYTES RELATIVE PERCENT (BEAKER) (test 28 % lazq=374) MONOCYTES RELATIVE PERCENT (BEAKER) (test 8 % kvis=287) EOSINOPHILS RELATIVE PERCENT (BEAKER) (test 5 % dxba=663) BASOPHILS RELATIVE PERCENT (BEAKER) (test 1 % ntky=174) NEUTROPHILS ABSOLUTE COUNT (BEAKER) (test 3.66 K/ L 1.78-5.38 vwmm=301) LYMPHOCYTES ABSOLUTE COUNT (BEAKER) (test 1.79 K/ L 1.32-3.57 thsu=930) MONOCYTES ABSOLUTE COUNT (BEAKER) (test 0.54 K/ L 0.30-0.82 nzpu=898) EOSINOPHILS ABSOLUTE COUNT (BEAKER) (test 0.34 K/ L 0.04-0.54 epnt=329) BASOPHILS ABSOLUTE COUNT (BEAKER) (test 0.06 K/ L 0.01-0.08 ajac=011) IMMATURE GRANULOCYTES-RELATIVE PERCENT (BEAKER) 1 % 0-1 (test pzol=6082) POCT-GLUCOSE [id number] 12:52:00 Test Item Value Reference Range Comments POC-GLUCOSE METER (BEAKER) 48 mg/dL 70-110 TESTED AT [facility] [address] [facility] (test xcwl=6641) [facility] [address] BASIC METABOLIC [id number] 10:14:00 Test Item Value Reference Range Comments SODIUM (BEAKER) (test 139 meq/L 136-145 tasw=561) POTASSIUM (BEAKER) (test 3.9 meq/L 3.5-5.1 uhhp=566) CHLORIDE (BEAKER) (test 106 meq/L 98-107 slgv=684) CO2 (BEAKER) (test 25 meq/L 22-29 ckbv=023) BLOOD UREA NITROGEN 24 mg/dL 7-21 (BEAKER) (test tfde=798) CREATININE (BEAKER) (test 1.71 mg/dL 0.57-1.25 qrjb=078) GLUCOSE RANDOM (BEAKER) 91 mg/dL 70-105 (test papz=339) CALCIUM (BEAKER) (test 9.6 mg/dL 8.4-10.2 dsgf=789) EGFR (BEAKER) (test 40 mL/min/1.73 sq m ESTIMATED GFR IS NOT tyqn=1491) ACCURATE CREATININE CLEARANCE IN PREDICTING GLOMERULAR FILTRATION RATE. ESTIMATED GFR IS NOT APPLICABLE FOR DIALYSIS PATIENTS. CBC W/PLT COUNT & AUTO [id number] 09:53:00 Test Item Value Reference Range Comments WHITE BLOOD CELL COUNT (BEAKER) (test vykb=447) 5.7 K/ L 3.5-10.5 RED BLOOD CELL COUNT (BEAKER) (test axje=384) 4.35 M/ L 4.63-6.08 HEMOGLOBIN (BEAKER) (test ysxo=134) 12.3 GM/DL 13.7-17.5 HEMATOCRIT (BEAKER) (test frei=938) 37.6 % 40.1-51.0 MEAN CORPUSCULAR VOLUME (BEAKER) (test yjzy=999) 86.4 fL 79.0-92.2 MEAN CORPUSCULAR HEMOGLOBIN (BEAKER) (test 28.3 pg 25.7-32.2 gcjs=823) MEAN CORPUSCULAR HEMOGLOBIN CONC (BEAKER) (test 32.7 GM/DL 32.3-36.5 parg=657) RED CELL DISTRIBUTION WIDTH (BEAKER) (test 13.8 % 11.6-14.4 tkte=386) PLATELET COUNT (BEAKER) (test djxc=733) 128 K/CU MM 150-450 MEAN PLATELET VOLUME (BEAKER) (test hgsv=876) 11.7 fL 9.4-12.4 NUCLEATED RED BLOOD CELLS (BEAKER) (test 0 /100 WBC 0-0 qlqq=958) NEUTROPHILS RELATIVE PERCENT (BEAKER) (test 64 % zuyd=129) LYMPHOCYTES RELATIVE PERCENT (BEAKER) (test 23 % tpty=952) MONOCYTES RELATIVE PERCENT (BEAKER) (test 8 % vmyr=597) EOSINOPHILS RELATIVE PERCENT (BEAKER) (test 5 % eevt=067) BASOPHILS RELATIVE PERCENT (BEAKER) (test 1 % enij=007) NEUTROPHILS ABSOLUTE COUNT (BEAKER) (test 3.66 K/ L 1.78-5.38 zrky=890) LYMPHOCYTES ABSOLUTE COUNT (BEAKER) (test 1.30 K/ L 1.32-3.57 kpkz=686) MONOCYTES ABSOLUTE COUNT (BEAKER) (test 0.43 K/ L 0.30-0.82 wkti=606) EOSINOPHILS ABSOLUTE COUNT (BEAKER) (test 0.27 K/ L 0.04-0.54 tetb=330) BASOPHILS ABSOLUTE COUNT (BEAKER) (test 0.05 K/ L 0.01-0.08 fkeu=200) IMMATURE GRANULOCYTES-RELATIVE PERCENT (BEAKER) 1 % 0-1 (test tgfu=7110) HEMOGLOBIN [id number] 10:34:00 Test Item Value Reference Range Comments HEMOGLOBIN A1C (BEAKER) (test lqaj=639) 8.6 % 4.3-6.1 BASIC METABOLIC [id number] 09:32:00 Test Item Value Reference Range Comments SODIUM (BEAKER) (test 135 meq/L 136-145 ytet=480) POTASSIUM (BEAKER) (test 3.9 meq/L 3.5-5.1 uuya=823) CHLORIDE (BEAKER) (test 100 meq/L 98-107 vpqf=576) CO2 (BEAKER) (test 24 meq/L 22-29 xfmo=124) BLOOD UREA NITROGEN 29 mg/dL 7-21 (BEAKER) (test smvx=683) CREATININE (BEAKER) (test 1.51 mg/dL 0.57-1.25 ucsb=211) GLUCOSE RANDOM (BEAKER) 240 mg/dL 70-105 (test toeb=132) CALCIUM (BEAKER) (test 9.7 mg/dL 8.4-10.2 yink=995) EGFR (BEAKER) (test 46 mL/min/1.73 sq m ESTIMATED GFR IS NOT mnfp=3517) ACCURATE CREATININE CLEARANCE IN PREDICTING GLOMERULAR FILTRATION RATE. ESTIMATED GFR IS NOT APPLICABLE FOR DIALYSIS PATIENTS. B-TYPE NATRIURETIC FACTOR (BNP)2018-05-03 09:31:00 Test Item Value Reference Range Comments B-TYPE NATRIURETIC PEPTIDE (BEAKER) (test 294 pg/mL 0-100 feqy=696) CBC W/PLT COUNT & AUTO [id number] 09:01:00 Test Item Value Reference Range Comments WHITE BLOOD CELL COUNT (BEAKER) (test vpfp=878) 6.9 K/ L 3.5-10.5 RED BLOOD CELL COUNT (BEAKER) (test pcyd=055) 4.38 M/ L 4.63-6.08 HEMOGLOBIN (BEAKER) (test wbwu=299) 12.4 GM/DL 13.7-17.5 HEMATOCRIT (BEAKER) (test vidm=526) 37.1 % 40.1-51.0 MEAN CORPUSCULAR VOLUME (BEAKER) (test pglh=183) 84.7 fL 79.0-92.2 MEAN CORPUSCULAR HEMOGLOBIN (BEAKER) (test 28.3 pg 25.7-32.2 pyqn=461) MEAN CORPUSCULAR HEMOGLOBIN CONC (BEAKER) (test 33.4 GM/DL 32.3-36.5 bzsv=697) RED CELL DISTRIBUTION WIDTH (BEAKER) (test 14.5 % 11.6-14.4 tzdb=506) PLATELET COUNT (BEAKER) (test ejwo=656) 151 K/CU MM 150-450 MEAN PLATELET VOLUME (BEAKER) (test peii=997) 11.5 fL 9.4-12.4 NUCLEATED RED BLOOD CELLS (BEAKER) (test 0 /100 WBC 0-0 kaex=743) NEUTROPHILS RELATIVE PERCENT (BEAKER) (test 63 % cviu=472) LYMPHOCYTES RELATIVE PERCENT (BEAKER) (test 23 % svvt=964) MONOCYTES RELATIVE PERCENT (BEAKER) (test 8 % pqde=334) EOSINOPHILS RELATIVE PERCENT (BEAKER) (test 5 % pzbq=748) BASOPHILS RELATIVE PERCENT (BEAKER) (test 1 % ooja=385) NEUTROPHILS ABSOLUTE COUNT (BEAKER) (test 4.33 K/ L 1.78-5.38 kssw=003) LYMPHOCYTES ABSOLUTE COUNT (BEAKER) (test 1.61 K/ L 1.32-3.57 bwjc=405) MONOCYTES ABSOLUTE COUNT (BEAKER) (test 0.55 K/ L 0.30-0.82 gusy=075) EOSINOPHILS ABSOLUTE COUNT (BEAKER) (test 0.32 K/ L 0.04-0.54 qntd=259) BASOPHILS ABSOLUTE COUNT (BEAKER) (test 0.05 K/ L 0.01-0.08 wcoa=067) IMMATURE GRANULOCYTES-RELATIVE PERCENT (BEAKER) 0 % 0-1 (test qsyu=9400) B-TYPE NATRIURETIC FACTOR (BNP)2018-03-01 10:49:00 Test Item Value Reference Range Comments B-TYPE NATRIURETIC PEPTIDE (BEAKER) (test 166 pg/mL 0-100 bbmo=974) BASIC METABOLIC [id number] 10:42:00 Test Item Value Reference Range Comments SODIUM (BEAKER) (test 137 meq/L 136-145 logw=618) POTASSIUM (BEAKER) (test 4.1 meq/L 3.5-5.1 uxwc=892) CHLORIDE (BEAKER) (test 106 meq/L 98-107 ermp=652) CO2 (BEAKER) (test 21 meq/L 22-29 pvbc=723) BLOOD UREA NITROGEN 25 mg/dL 7-21 (BEAKER) (test lbqx=266) CREATININE (BEAKER) (test 1.43 mg/dL 0.57-1.25 jmbi=685) GLUCOSE RANDOM (BEAKER) 166 mg/dL 70-105 (test zcaa=212) CALCIUM (BEAKER) (test 10.2 mg/dL 8.4-10.2 zujz=519) EGFR (BEAKER) (test 49 mL/min/1.73 sq m ESTIMATED GFR IS NOT eiyp=8405) ACCURATE CREATININE CLEARANCE IN PREDICTING GLOMERULAR FILTRATION RATE. ESTIMATED GFR IS NOT APPLICABLE FOR DIALYSIS PATIENTS. CBC W/PLT COUNT & AUTO [id number] 10:17:00 Test Item Value Reference Range Comments WHITE BLOOD CELL COUNT (BEAKER) (test slsd=941) 7.1 K/ L 3.5-10.5 RED BLOOD CELL COUNT (BEAKER) (test edfu=819) 4.73 M/ L 4.63-6.08 HEMOGLOBIN (BEAKER) (test ncvl=024) 13.3 GM/DL 13.7-17.5 HEMATOCRIT (BEAKER) (test pvqr=476) 39.6 % 40.1-51.0 MEAN CORPUSCULAR VOLUME (BEAKER) (test ayox=057) 83.7 fL 79.0-92.2 MEAN CORPUSCULAR HEMOGLOBIN (BEAKER) (test 28.1 pg 25.7-32.2 tqat=753) MEAN CORPUSCULAR HEMOGLOBIN CONC (BEAKER) (test 33.6 GM/DL 32.3-36.5 dhdz=974) RED CELL DISTRIBUTION WIDTH (BEAKER) (test 12.5 % 11.6-14.4 zkyv=546) PLATELET COUNT (BEAKER) (test mimj=383) 140 K/CU MM 150-450 MEAN PLATELET VOLUME (BEAKER) (test ctrb=771) 11.3 fL 9.4-12.4 NUCLEATED RED BLOOD CELLS (BEAKER) (test 0 /100 WBC 0-0 lruv=861) NEUTROPHILS RELATIVE PERCENT (BEAKER) (test 60 % mgtv=533) LYMPHOCYTES RELATIVE PERCENT (BEAKER) (test 25 % lety=632) MONOCYTES RELATIVE PERCENT (BEAKER) (test 9 % rkpz=955) EOSINOPHILS RELATIVE PERCENT (BEAKER) (test 5 % zjvp=732) BASOPHILS RELATIVE PERCENT (BEAKER) (test 1 % ewbt=172) NEUTROPHILS ABSOLUTE COUNT (BEAKER) (test 4.23 K/ L 1.78-5.38 affj=289) LYMPHOCYTES ABSOLUTE COUNT (BEAKER) (test 1.78 K/ L 1.32-3.57 evuf=966) MONOCYTES ABSOLUTE COUNT (BEAKER) (test 0.62 K/ L 0.30-0.82 vkbu=909) EOSINOPHILS ABSOLUTE COUNT (BEAKER) (test 0.38 K/ L 0.04-0.54 xcqf=699) BASOPHILS ABSOLUTE COUNT (BEAKER) (test 0.04 K/ L 0.01-0.08 qlpz=174) IMMATURE GRANULOCYTES-RELATIVE PERCENT (BEAKER) 0 % 0-1 (test zikg=1290) B-TYPE NATRIURETIC FACTOR (BNP)2018-02-07 13:44:00 Test Item Value Reference Range Comments B-TYPE NATRIURETIC PEPTIDE (BEAKER) (test 108 pg/mL 0-100 gggg=066) LIPID [id number] 13:38:00 Test Item Value Reference Range Comments TRIGLYCERIDES (BEAKER) (test scmr=796) 244 mg/dL CHOLESTEROL (BEAKER) (test nzfq=075) 265 mg/dL HDL CHOLESTEROL (BEAKER) (test sltx=795) 33 mg/dL LDL CHOLESTEROL CALCULATED (BEAKER) (test 183 mg/dL ineu=318) Triglyceride Reference Range: Low Risk <150 Borderline 150- 199 High Risk 200-499 Very High Risk >=500Cholesterol Reference Range: Low Risk <200 Borderline 200-239 High Risk > 240HDL Cholesterol Reference Range: Low Risk >=60 High Risk <40LDL Cholesterol Reference Range: Optimal <100 Near Optimal 100-129 Borderline 130-159 High 160-189 Very High >=190BASIC METABOLIC [id number] 13:38:00 Test Item Value Reference Range Comments SODIUM (BEAKER) (test 137 meq/L 136-145 xnir=472) POTASSIUM (BEAKER) (test 4.4 meq/L 3.5-5.1 yjme=069) CHLORIDE (BEAKER) (test 106 meq/L 98-107 wzad=883) CO2 (BEAKER) (test 21 meq/L 22-29 uxui=150) BLOOD UREA NITROGEN 43 mg/dL 7-21 (BEAKER) (test wimh=393) CREATININE (BEAKER) (test 1.60 mg/dL 0.57-1.25 pqta=811) GLUCOSE RANDOM (BEAKER) 160 mg/dL 70-105 (test rhue=299) CALCIUM (BEAKER) (test 9.3 mg/dL 8.4-10.2 dddy=547) EGFR (BEAKER) (test 43 mL/min/1.73 sq m ESTIMATED GFR IS NOT ohrz=9114) ACCURATE CREATININE CLEARANCE IN PREDICTING GLOMERULAR FILTRATION RATE. ESTIMATED GFR IS NOT APPLICABLE FOR DIALYSIS PATIENTS. HEPATIC FUNCTION [id number] 13:38:00 Test Item Value Reference Range Comments TOTAL PROTEIN (BEAKER) (test zttz=910) 7.4 gm/dL 6.0-8.3 ALBUMIN (BEAKER) (test gbrv=0659) 4.4 g/dL 3.5-5.0 BILIRUBIN TOTAL (BEAKER) (test bgqn=709) 0.5 mg/dL 0.2-1.2 BILIRUBIN DIRECT (BEAKER) (test zcre=852) 0.2 mg/dL 0.1-0.5 ALKALINE PHOSPHATASE (BEAKER) (test rnix=282) 64 U/L 40-150 AST (SGOT) (BEAKER) (test rzle=008) 23 U/L 5-34 ALT (SGPT) (BEAKER) (test gdxr=208) 25 U/L 6-55 CBC W/PLT COUNT & AUTO [id number] 13:07:00 Test Item Value Reference Range Comments WHITE BLOOD CELL COUNT (BEAKER) (test gnbu=636) 5.1 K/ L 3.5-10.5 RED BLOOD CELL COUNT (BEAKER) (test xkcp=113) 4.41 M/ L 4.63-6.08 HEMOGLOBIN (BEAKER) (test yvch=509) 12.8 GM/DL 13.7-17.5 HEMATOCRIT (BEAKER) (test swob=436) 38.5 % 40.1-51.0 MEAN CORPUSCULAR VOLUME (BEAKER) (test trpl=856) 87.3 fL 79.0-92.2 MEAN CORPUSCULAR HEMOGLOBIN (BEAKER) (test 29.0 pg 25.7-32.2 atnu=077) MEAN CORPUSCULAR HEMOGLOBIN CONC (BEAKER) (test 33.2 GM/DL 32.3-36.5 qlkc=397) RED CELL DISTRIBUTION WIDTH (BEAKER) (test 13.2 % 11.6-14.4 jhpy=737) PLATELET COUNT (BEAKER) (test elnw=780) 130 K/CU MM 150-450 MEAN PLATELET VOLUME (BEAKER) (test agxg=542) 11.7 fL 9.4-12.4 NUCLEATED RED BLOOD CELLS (BEAKER) (test 0 /100 WBC 0-0 bqli=273) NEUTROPHILS RELATIVE PERCENT (BEAKER) (test 61 % ykfw=182) LYMPHOCYTES RELATIVE PERCENT (BEAKER) (test 24 % djsk=611) MONOCYTES RELATIVE PERCENT (BEAKER) (test 9 % sakg=038) EOSINOPHILS RELATIVE PERCENT (BEAKER) (test 5 % xgpa=855) BASOPHILS RELATIVE PERCENT (BEAKER) (test 1 % texr=267) NEUTROPHILS ABSOLUTE COUNT (BEAKER) (test 3.12 K/ L 1.78-5.38 azbb=244) LYMPHOCYTES ABSOLUTE COUNT (BEAKER) (test 1.23 K/ L 1.32-3.57 birq=615) MONOCYTES ABSOLUTE COUNT (BEAKER) (test 0.47 K/ L 0.30-0.82 fupk=844) EOSINOPHILS ABSOLUTE COUNT (BEAKER) (test 0.24 K/ L 0.04-0.54 klbg=563) BASOPHILS ABSOLUTE COUNT (BEAKER) (test 0.04 K/ L 0.01-0.08 nqha=591) IMMATURE GRANULOCYTES-RELATIVE PERCENT (BEAKER) 0 % 0-1 (test awev=3480) B-TYPE NATRIURETIC FACTOR (BNP)2017-12-24 13:28:00 Test Item Value Reference Range Comments B-TYPE NATRIURETIC PEPTIDE (BEAKER) (test 187 pg/mL 0-100 lkkt=983) [id number] 13:23:00 Test Item Value Reference Range Comments MAGNESIUM (BEAKER) (test yfnj=403) 1.9 mg/dL 1.6-2.6 BASIC METABOLIC [id number] 13:23:00 Test Item Value Reference Range Comments SODIUM (BEAKER) (test 131 meq/L 136-145 plkw=688) POTASSIUM (BEAKER) (test 4.1 meq/L 3.5-5.1 ropt=759) CHLORIDE (BEAKER) (test 100 meq/L 98-107 sdsq=649) CO2 (BEAKER) (test 21 meq/L 22-29 qtts=393) BLOOD UREA NITROGEN 20 mg/dL 7-21 (BEAKER) (test bgqy=612) CREATININE (BEAKER) (test 1.36 mg/dL 0.57-1.25 xiof=847) GLUCOSE RANDOM (BEAKER) 258 mg/dL 70-105 (test eqxg=070) CALCIUM (BEAKER) (test 9.8 mg/dL 8.4-10.2 uaof=652) EGFR (BEAKER) (test 52 mL/min/1.73 sq m ESTIMATED GFR IS NOT quws=6437) ACCURATE CREATININE CLEARANCE IN PREDICTING GLOMERULAR FILTRATION RATE. ESTIMATED GFR IS NOT APPLICABLE FOR DIALYSIS PATIENTS. POCT-GLUCOSE [id number] 07:29:00 Test Item Value Reference Range Comments POC-GLUCOSE METER (BEAKER) 154 mg/dL 70-110 TESTED AT [facility] [address] [facility] (test vbve=1605) [facility] [address] BASIC METABOLIC [id number] 06:30:00 Test Item Value Reference Range Comments SODIUM (BEAKER) (test 134 meq/L 136-145 rbrs=868) POTASSIUM (BEAKER) (test 3.9 meq/L 3.5-5.1 nhpx=802) CHLORIDE (BEAKER) (test 101 meq/L 98-107 junh=110) CO2 (BEAKER) (test 25 meq/L 22-29 zgkr=889) BLOOD UREA NITROGEN 29 mg/dL 7-21 (BEAKER) (test qiuc=376) CREATININE (BEAKER) (test 1.32 mg/dL 0.57-1.25 ncwp=018) GLUCOSE RANDOM (BEAKER) 156 mg/dL 70-105 (test asol=880) CALCIUM (BEAKER) (test 9.5 mg/dL 8.4-10.2 dzei=510) EGFR (BEAKER) (test 54 mL/min/1.73 sq m ESTIMATED GFR IS NOT kpgv=6181) ACCURATE CREATININE CLEARANCE IN PREDICTING GLOMERULAR FILTRATION RATE. ESTIMATED GFR IS NOT APPLICABLE FOR DIALYSIS PATIENTS. CBC W/PLT COUNT & AUTO [id number] 06:05:00 Test Item Value Reference Range Comments WHITE BLOOD CELL COUNT (BEAKER) (test fehj=276) 6.0 K/ L 3.5-10.5 RED BLOOD CELL COUNT (BEAKER) (test nppi=948) 3.86 M/ L 4.63-6.08 HEMOGLOBIN (BEAKER) (test czpn=681) 11.4 GM/DL 13.7-17.5 HEMATOCRIT (BEAKER) (test ruww=574) 32.5 % 40.1-51.0 MEAN CORPUSCULAR VOLUME (BEAKER) (test nslg=602) 84.2 fL 79.0-92.2 MEAN CORPUSCULAR HEMOGLOBIN (BEAKER) (test 29.5 pg 25.7-32.2 faks=573) MEAN CORPUSCULAR HEMOGLOBIN CONC (BEAKER) (test 35.1 GM/DL 32.3-36.5 zwhe=681) RED CELL DISTRIBUTION WIDTH (BEAKER) (test 12.6 % 11.6-14.4 kkds=421) PLATELET COUNT (BEAKER) (test zgnh=090) 124 K/CU MM 150-450 MEAN PLATELET VOLUME (BEAKER) (test shny=412) 10.9 fL 9.4-12.4 NUCLEATED RED BLOOD CELLS (BEAKER) (test 0 /100 WBC 0-0 oqbe=233) NEUTROPHILS RELATIVE PERCENT (BEAKER) (test 53 % pmbo=890) LYMPHOCYTES RELATIVE PERCENT (BEAKER) (test 31 % lopr=713) MONOCYTES RELATIVE PERCENT (BEAKER) (test 10 % crql=154) EOSINOPHILS RELATIVE PERCENT (BEAKER) (test 4 % rqjf=140) BASOPHILS RELATIVE PERCENT (BEAKER) (test 1 % ypaf=839) NEUTROPHILS ABSOLUTE COUNT (BEAKER) (test 3.17 K/ L 1.78-5.38 dsce=375) LYMPHOCYTES ABSOLUTE COUNT (BEAKER) (test 1.85 K/ L 1.32-3.57 oiad=357) MONOCYTES ABSOLUTE COUNT (BEAKER) (test 0.57 K/ L 0.30-0.82 fncw=896) EOSINOPHILS ABSOLUTE COUNT (BEAKER) (test 0.25 K/ L 0.04-0.54 vybr=513) BASOPHILS ABSOLUTE COUNT (BEAKER) (test 0.04 K/ L 0.01-0.08 wocd=016) IMMATURE GRANULOCYTES-RELATIVE PERCENT (BEAKER) 2 % 0-1 (test alsp=0630) POCT-GLUCOSE [id number] 21:25:00 Test Item Value Reference Range Comments POC-GLUCOSE METER (BEAKER) 275 mg/dL 70-110 TESTED AT [address] (test qlan=7562) [place] [id number] POCT-GLUCOSE [id number] 16:40:00 Test Item Value Reference Range Comments POC-GLUCOSE METER (BEAKER) 227 mg/dL 70-110 TESTED AT [address] (test swug=1896) [place] [address] POCT-GLUCOSE [id number] 13:25:00 Test Item Value Reference Range Comments POC-GLUCOSE METER (BEAKER) 375 mg/dL 70-110 TESTED AT [facility] [address] [facility] (test eump=9223) [place] [id number] POCT-GLUCOSE [id number] 08:11:00 Test Item Value Reference Range Comments POC-GLUCOSE METER (BEAKER) 224 mg/dL 70-110 TESTED AT [place] [id number] [facility] (test ixek=9914) [place] [id number] BASIC METABOLIC [id number] 04:41:00 Test Item Value Reference Range Comments SODIUM (BEAKER) (test 131 meq/L 136-145 qvth=694) POTASSIUM (BEAKER) (test 3.9 meq/L 3.5-5.1 uxee=844) CHLORIDE (BEAKER) (test 98 meq/L 98-107 fvli=427) CO2 (BEAKER) (test 22 meq/L 22-29 alfm=865) BLOOD UREA NITROGEN 46 mg/dL 7-21 (BEAKER) (test gorn=128) CREATININE (BEAKER) (test 1.75 mg/dL 0.57-1.25 kpwv=497) GLUCOSE RANDOM (BEAKER) 292 mg/dL 70-105 (test mbyj=818) CALCIUM (BEAKER) (test 9.6 mg/dL 8.4-10.2 qihe=630) EGFR (BEAKER) (test 39 mL/min/1.73 sq m ESTIMATED GFR IS NOT xudi=5861) ACCURATE CREATININE CLEARANCE IN PREDICTING GLOMERULAR FILTRATION RATE. ESTIMATED GFR IS NOT APPLICABLE FOR DIALYSIS PATIENTS. CBC W/PLT COUNT & AUTO [id number] 04:17:00 Test Item Value Reference Range Comments WHITE BLOOD CELL COUNT (BEAKER) (test rsku=703) 5.4 K/ L 3.5-10.5 RED BLOOD CELL COUNT (BEAKER) (test phrb=388) 3.91 M/ L 4.63-6.08 HEMOGLOBIN (BEAKER) (test toka=231) 11.4 GM/DL 13.7-17.5 HEMATOCRIT (BEAKER) (test ldzr=295) 32.6 % 40.1-51.0 MEAN CORPUSCULAR VOLUME (BEAKER) (test hcss=157) 83.4 fL 79.0-92.2 MEAN CORPUSCULAR HEMOGLOBIN (BEAKER) (test 29.2 pg 25.7-32.2 vtek=547) MEAN CORPUSCULAR HEMOGLOBIN CONC (BEAKER) (test 35.0 GM/DL 32.3-36.5 teup=486) RED CELL DISTRIBUTION WIDTH (BEAKER) (test 12.5 % 11.6-14.4 skzj=876) PLATELET COUNT (BEAKER) (test znsh=004) 125 K/CU MM 150-450 MEAN PLATELET VOLUME (BEAKER) (test tmtg=579) 11.2 fL 9.4-12.4 NUCLEATED RED BLOOD CELLS (BEAKER) (test 0 /100 WBC 0-0 eytj=261) NEUTROPHILS RELATIVE PERCENT (BEAKER) (test 56 % hpjl=793) LYMPHOCYTES RELATIVE PERCENT (BEAKER) (test 29 % elhy=304) MONOCYTES RELATIVE PERCENT (BEAKER) (test 9 % rkgk=857) EOSINOPHILS RELATIVE PERCENT (BEAKER) (test 4 % azsy=638) BASOPHILS RELATIVE PERCENT (BEAKER) (test 1 % kqjx=382) NEUTROPHILS ABSOLUTE COUNT (BEAKER) (test 3.04 K/ L 1.78-5.38 rezu=837) LYMPHOCYTES ABSOLUTE COUNT (BEAKER) (test 1.57 K/ L 1.32-3.57 khrp=230) MONOCYTES ABSOLUTE COUNT (BEAKER) (test 0.47 K/ L 0.30-0.82 waty=335) EOSINOPHILS ABSOLUTE COUNT (BEAKER) (test 0.23 K/ L 0.04-0.54 mxtj=593) BASOPHILS ABSOLUTE COUNT (BEAKER) (test 0.04 K/ L 0.01-0.08 rnjd=733) IMMATURE GRANULOCYTES-RELATIVE PERCENT (BEAKER) 1 % 0-1 (test zsra=0676) POCT-GLUCOSE [id number] 21:52:00 Test Item Value Reference Range Comments POC-GLUCOSE METER (BEAKER) 373 mg/dL 70-110 Notified DILIP VARMA/TESTED AT [facility] (test akii=4361) [address] [facility] [address] POCT-GLUCOSE [id number] 18:21:00 Test Item Value Reference Range Comments POC-GLUCOSE METER (BEAKER) 358 mg/dL 70-110 Notified DILIP VARMA/TESTED AT [facility] (test wswl=2490) [address] [place] [address] [place] [address] POCT-GLUCOSE [id number] 14:56:00 Test Item Value Reference Range Comments POC-GLUCOSE METER (BEAKER) 427 mg/dL 70-110 TESTED AT [place] [id number] [facility] (test efmo=9680) [facility] [address] POCT-GLUCOSE [id number] 08:52:00 Test Item Value Reference Range Comments POC-GLUCOSE METER (BEAKER) 314 mg/dL 70-110 TESTED AT [address] (test ikif=8638) [facility] [address] BASIC METABOLIC [id number] 05:39:00 Test Item Value Reference Range Comments SODIUM (BEAKER) (test 129 meq/L 136-145 iznt=354) POTASSIUM (BEAKER) (test 3.4 meq/L 3.5-5.1 nziy=758) CHLORIDE (BEAKER) (test 96 meq/L 98-107 zcpz=137) CO2 (BEAKER) (test 22 meq/L 22-29 zjpe=127) BLOOD UREA NITROGEN 57 mg/dL 7-21 (BEAKER) (test pbxk=587) CREATININE (BEAKER) (test 2.24 mg/dL 0.57-1.25 nzcj=228) GLUCOSE RANDOM (BEAKER) 251 mg/dL 70-105 (test ftir=452) CALCIUM (BEAKER) (test 9.5 mg/dL 8.4-10.2 jjsk=355) EGFR (BEAKER) (test 29 mL/min/1.73 sq m ESTIMATED GFR IS NOT tpro=1588) ACCURATE CREATININE CLEARANCE IN PREDICTING GLOMERULAR FILTRATION RATE. ESTIMATED GFR IS NOT APPLICABLE FOR DIALYSIS PATIENTS. CBC W/PLT COUNT & AUTO [id number] 04:38:00 Test Item Value Reference Range Comments WHITE BLOOD CELL COUNT (BEAKER) (test dgms=359) 6.0 K/ L 3.5-10.5 RED BLOOD CELL COUNT (BEAKER) (test smvl=968) 4.05 M/ L 4.63-6.08 HEMOGLOBIN (BEAKER) (test kynv=816) 11.8 GM/DL 13.7-17.5 HEMATOCRIT (BEAKER) (test rnsb=567) 33.9 % 40.1-51.0 MEAN CORPUSCULAR VOLUME (BEAKER) (test yndy=140) 83.7 fL 79.0-92.2 MEAN CORPUSCULAR HEMOGLOBIN (BEAKER) (test 29.1 pg 25.7-32.2 yhoe=006) MEAN CORPUSCULAR HEMOGLOBIN CONC (BEAKER) (test 34.8 GM/DL 32.3-36.5 vnay=941) RED CELL DISTRIBUTION WIDTH (BEAKER) (test 12.6 % 11.6-14.4 pjcr=135) PLATELET COUNT (BEAKER) (test sbiv=934) 148 K/CU MM 150-450 MEAN PLATELET VOLUME (BEAKER) (test qqie=099) 11.0 fL 9.4-12.4 NUCLEATED RED BLOOD CELLS (BEAKER) (test 0 /100 WBC 0-0 cnza=145) NEUTROPHILS RELATIVE PERCENT (BEAKER) (test 53 % sbfp=398) LYMPHOCYTES RELATIVE PERCENT (BEAKER) (test 32 % qhua=183) MONOCYTES RELATIVE PERCENT (BEAKER) (test 9 % soyr=845) EOSINOPHILS RELATIVE PERCENT (BEAKER) (test 5 % jweg=429) BASOPHILS RELATIVE PERCENT (BEAKER) (test 1 % vobu=724) NEUTROPHILS ABSOLUTE COUNT (BEAKER) (test 3.15 K/ L 1.78-5.38 vwhu=436) LYMPHOCYTES ABSOLUTE COUNT (BEAKER) (test 1.93 K/ L 1.32-3.57 uozx=070) MONOCYTES ABSOLUTE COUNT (BEAKER) (test 0.51 K/ L 0.30-0.82 dlce=629) EOSINOPHILS ABSOLUTE COUNT (BEAKER) (test 0.27 K/ L 0.04-0.54 jlen=693) BASOPHILS ABSOLUTE COUNT (BEAKER) (test 0.05 K/ L 0.01-0.08 glbi=407) IMMATURE GRANULOCYTES-RELATIVE PERCENT (BEAKER) 1 % 0-1 (test gesz=2679) POCT-GLUCOSE [id number] 23:01:00 Test Item Value Reference Range Comments POC-GLUCOSE METER (BEAKER) 377 mg/dL 70-110 TESTED AT [address] (test xpzj=3044) [place] [address] POCT-GLUCOSE [id number] 22:02:00 Test Item Value Reference Range Comments POC-GLUCOSE METER (BEAKER) 385 mg/dL 70-110 TESTED AT [address] (test ozpn=1278) [place] [address] TROPONIN [id number] 19:27:00 Test Item Value Reference Range Comments TROPONIN I (BEAKER) (test pshs=871) 0.22 ng/mL 0.00-0.03 Troponin I (TnI) levels [...] acidosis, acute neurological disease, and persistent tachyarrhythmia.POCT-GLUCOSE [id number] 18:25:00 Test Item Value Reference Range Comments POC-GLUCOSE METER (BEAKER) 95 mg/dL 70-110 TESTED AT [address] (test wrxt=0282) [place] [address] HEMOGLOBIN [id number] 14:48:00 Test Item Value Reference Range Comments HEMOGLOBIN A1C (BEAKER) (test xasm=767) 9.4 % 4.3-6.1 POCT-GLUCOSE [id number] 13:56:00 Test Item Value Reference Range Comments POC-GLUCOSE METER (BEAKER) 316 mg/dL 70-110 TESTED AT [address] (test tnkp=2228) [place] [address] POCT-GLUCOSE [id number] 13:56:00 Test Item Value Reference Range Comments POC-GLUCOSE METER (BEAKER) > mg/dL 70-110 OUTSIDE MEASURING RANGETESTED AT (test obhg=8140) [place] [address] TROPONIN [id number] 12:27:00 Test Item Value Reference Range Comments TROPONIN I (BEAKER) (test ewbn=013) 0.19 ng/mL 0.00-0.03 Troponin I (TnI) levels [...] failure, acidosis, acute neurological disease, and persistent tachyarrhythmia.[id number] 12:15:00 Test Item Value Reference Range Comments GLUCOSE RANDOM (BEAKER) (test kxgj=898) 572 mg/dL 70-105 POCT-GLUCOSE [id number] 11:48:00 Test Item Value Reference Range Comments POC-GLUCOSE METER (BEAKER) > mg/dL 70-110 OUTSIDE MEASURING RANGETESTED AT (test opkv=9400) [facility] [address] [facility] [address] POCT-GLUCOSE [id number] 09:39:00 Test Item Value Reference Range Comments POC-GLUCOSE METER (BEAKER) > mg/dL 70-110 OUTSIDE MEASURING RANGETESTED AT (test eake=8230) [facility] [address] [facility] [address] TROPONIN [id number] 21:48:00 Test Item Value Reference Range Comments TROPONIN I (BEAKER) (test tgbw=436) 0.19 ng/mL 0.00-0.03 Troponin I (TnI) levels [...] and persistent tachyarrhythmia.CREATINE KINASE (CK), TOTAL AND [id number] 21:47:00 Test Item Value Reference Range Comments CREATINE KINASE TOTAL (BEAKER) (test mbal=511) 60 U/L 29-200 CREATINE KINASE-MB (BEAKER) (test thyf=836) 4.4 ng/mL 0.0-6.6 CREATINE KINASE-MB INDEX (BEAKER) (test esbx=706) 7.3 % CK-MB Reference Range:<6.7 Normal6.7-10.0 Borderline>10.0 AbnormalB-TYPE NATRIURETIC FACTOR (BNP)2017-12-03 21:47:00 Test Item Value Reference Range Comments B-TYPE NATRIURETIC PEPTIDE (BEAKER) (test updp=262) 87 pg/mL 0-100 BASIC METABOLIC [id number] 21:41:00 Test Item Value Reference Range Comments SODIUM (BEAKER) (test 127 meq/L 136-145 cekt=914) POTASSIUM (BEAKER) (test 4.8 meq/L 3.5-5.1 Specimen moderately mfhz=520) hemolyzed CHLORIDE (BEAKER) (test 91 meq/L 98-107 osjr=230) CO2 (BEAKER) (test 19 meq/L 22-29 gaef=751) BLOOD UREA NITROGEN 48 mg/dL 7-21 (BEAKER) (test htki=647) CREATININE (BEAKER) (test 2.58 mg/dL 0.57-1.25 Specimen moderately aatk=764) hemolyzed GLUCOSE RANDOM (BEAKER) 355 mg/dL 70-105 (test kdup=094) CALCIUM (BEAKER) (test 10.2 mg/dL 8.4-10.2 woot=148) EGFR (BEAKER) (test 25 mL/min/1.73 sq m ESTIMATED GFR IS NOT yrai=7769) ACCURATE CREATININE CLEARANCE IN PREDICTING GLOMERULAR FILTRATION RATE. ESTIMATED GFR IS NOT APPLICABLE FOR DIALYSIS PATIENTS. [id number] 21:39:00 Test Item Value Reference Range Comments MAGNESIUM (BEAKER) (test 2.3 mg/dL 1.6-2.6 Specimen moderately hemolyzed nklq=433) [id number] 21:30:00 Test Item Value Reference Range Comments PROTIME (BEAKER) (test qcjm=773) 13.3 seconds 11.7-14.7 INR (BEAKER) (test yheb=980) 1.0 <=5.9 PARTIAL THROMBOPLASTIN TIME (BEAKER) (test 29.1 seconds 22.5-36.0 mhgy=922) RECOMMENDED COUMADIN/WARFARIN INR THERAPY RANGESSTANDARD DOSE: 2.0 - 3.0 Includes: PROPHYLAXIS forvenous thrombosis, systemic embolization; TREATMENT for venous thrombosis and/or pulmonary embolus.HIGH RISK: Target INR is 2.5-3.5 for patients with mechanical heart valves.CBC W/PLT COUNT & AUTO [id number] 21:22:00 Test Item Value Reference Range Comments WHITE BLOOD CELL COUNT (BEAKER) (test sxzm=201) 6.5 K/ L 3.5-10.5 RED BLOOD CELL COUNT (BEAKER) (test jpdh=701) 4.46 M/ L 4.63-6.08 HEMOGLOBIN (BEAKER) (test mlmg=053) 13.4 GM/DL 13.7-17.5 HEMATOCRIT (BEAKER) (test vgsv=549) 37.6 % 40.1-51.0 MEAN CORPUSCULAR VOLUME (BEAKER) (test sxpw=680) 84.3 fL 79.0-92.2 MEAN CORPUSCULAR HEMOGLOBIN (BEAKER) (test 30.0 pg 25.7-32.2 jacp=938) MEAN CORPUSCULAR HEMOGLOBIN CONC (BEAKER) (test 35.6 GM/DL 32.3-36.5 gjab=121) RED CELL DISTRIBUTION WIDTH (BEAKER) (test 12.9 % 11.6-14.4 gmje=521) PLATELET COUNT (BEAKER) (test fhfq=320) 162 K/CU MM 150-450 MEAN PLATELET VOLUME (BEAKER) (test vbeq=189) 11.2 fL 9.4-12.4 NUCLEATED RED BLOOD CELLS (BEAKER) (test 0 /100 WBC 0-0 gyyv=784) NEUTROPHILS RELATIVE PERCENT (BEAKER) (test 60 % efji=887) LYMPHOCYTES RELATIVE PERCENT (BEAKER) (test 24 % utue=347) MONOCYTES RELATIVE PERCENT (BEAKER) (test 8 % upfg=527) EOSINOPHILS RELATIVE PERCENT (BEAKER) (test 5 % uheh=142) BASOPHILS RELATIVE PERCENT (BEAKER) (test 1 % swhy=804) NEUTROPHILS ABSOLUTE COUNT (BEAKER) (test 3.89 K/ L 1.78-5.38 rtle=734) LYMPHOCYTES ABSOLUTE COUNT (BEAKER) (test 1.57 K/ L 1.32-3.57 jhfj=234) MONOCYTES ABSOLUTE COUNT (BEAKER) (test 0.54 K/ L 0.30-0.82 mstn=844) EOSINOPHILS ABSOLUTE COUNT (BEAKER) (test 0.34 K/ L 0.04-0.54 bzrf=211) BASOPHILS ABSOLUTE COUNT (BEAKER) (test 0.06 K/ L 0.01-0.08 vcbn=737) IMMATURE GRANULOCYTES-RELATIVE PERCENT (BEAKER) 1 % 0-1 (test sbti=7293) RAD, CHEST, 2 [id number] 14:26:00Reason for exam:->CHEST PAINFINAL REPORT Chest, PA and lateral. History: Chest pain. Comparison: 06/05/2014. Discussion: Left AICD present. Mild cardiomegaly. The lungs are clear without evidence of consolidation or effusion. There are no acute osseous abnormalities. The soft tissues are unremarkable. IMPRESSION: No acute cardiopulmonary abnormality. Signed: Rakesh Raineyeport Verified Date/Time: 12/03/2017 14:26:40 Reading Location: [address] Radiology Reading Room Electronically signed by: RAKESH RAINEY M.D. on 2017 02:26 PMB-TYPE NATRIURETIC FACTOR (BNP)2017-11-08 14:11:00 Test Item Value Reference Range Comments B-TYPE NATRIURETIC PEPTIDE (BEAKER) (test 138 pg/mL 0-100 slrs=244) BASIC METABOLIC [id number] 14:01:00 Test Item Value Reference Range Comments SODIUM (BEAKER) (test 136 meq/L 136-145 rywt=427) POTASSIUM (BEAKER) (test 4.5 meq/L 3.5-5.1 zrrg=314) CHLORIDE (BEAKER) (test 104 meq/L 98-107 xeuw=223) CO2 (BEAKER) (test 22 meq/L 22-29 mlbh=088) BLOOD UREA NITROGEN 34 mg/dL 7-21 (BEAKER) (test bhct=703) CREATININE (BEAKER) (test 2.20 mg/dL 0.57-1.25 tadw=945) GLUCOSE RANDOM (BEAKER) 248 mg/dL 70-105 (test ctpb=474) CALCIUM (BEAKER) (test 9.9 mg/dL 8.4-10.2 ekhb=465) EGFR (BEAKER) (test 30 mL/min/1.73 sq m ESTIMATED GFR IS NOT mtpm=5125) ACCURATE CREATININE CLEARANCE IN PREDICTING GLOMERULAR FILTRATION RATE. ESTIMATED GFR IS NOT APPLICABLE FOR DIALYSIS PATIENTS. CBC W/PLT COUNT & AUTO [id number] 13:35:00 Test Item Value Reference Range Comments WHITE BLOOD CELL COUNT (BEAKER) (test nrhc=028) 7.6 K/ L 3.5-10.5 RED BLOOD CELL COUNT (BEAKER) (test qoab=925) 4.20 M/ L 4.63-6.08 HEMOGLOBIN (BEAKER) (test niya=672) 12.3 GM/DL 13.7-17.5 HEMATOCRIT (BEAKER) (test ekaz=591) 37.0 % 40.1-51.0 MEAN CORPUSCULAR VOLUME (BEAKER) (test uirf=977) 88.1 fL 79.0-92.2 MEAN CORPUSCULAR HEMOGLOBIN (BEAKER) (test 29.3 pg 25.7-32.2 ewue=858) MEAN CORPUSCULAR HEMOGLOBIN CONC (BEAKER) (test 33.2 GM/DL 32.3-36.5 aufy=795) RED CELL DISTRIBUTION WIDTH (BEAKER) (test 13.1 % 11.6-14.4 ongh=884) PLATELET COUNT (BEAKER) (test gvvr=212) 154 K/CU MM 150-450 MEAN PLATELET VOLUME (BEAKER) (test tcqo=239) 11.4 fL 9.4-12.4 NUCLEATED RED BLOOD CELLS (BEAKER) (test 0 /100 WBC 0-0 dvuk=410) NEUTROPHILS RELATIVE PERCENT (BEAKER) (test 68 % trtf=813) LYMPHOCYTES RELATIVE PERCENT (BEAKER) (test 18 % pfyb=949) MONOCYTES RELATIVE PERCENT (BEAKER) (test 8 % ttps=345) EOSINOPHILS RELATIVE PERCENT (BEAKER) (test 5 % dvos=021) BASOPHILS RELATIVE PERCENT (BEAKER) (test 1 % ulcu=044) NEUTROPHILS ABSOLUTE COUNT (BEAKER) (test 5.16 K/ L 1.78-5.38 bsiu=866) LYMPHOCYTES ABSOLUTE COUNT (BEAKER) (test 1.33 K/ L 1.32-3.57 folj=701) MONOCYTES ABSOLUTE COUNT (BEAKER) (test 0.59 K/ L 0.30-0.82 tedb=342) EOSINOPHILS ABSOLUTE COUNT (BEAKER) (test 0.38 K/ L 0.04-0.54 hyck=029) BASOPHILS ABSOLUTE COUNT (BEAKER) (test 0.06 K/ L 0.01-0.08 clzl=273) IMMATURE GRANULOCYTES-RELATIVE PERCENT (BEAKER) 1 % 0-1 (test hqtm=4815) FLOW PRA CLASS I AND [id number] 09:17:00 Test Item Value Reference Range Comments DATE OF SERUM (BEAKER) (test chxn=2860) [id number] SERUM # (BEAKER) (test yqgx=3162) [id number] FLOW PRA CLASS I AND II (test kfzb=3306) See Scanned Report B-TYPE NATRIURETIC FACTOR (BNP)2017-10-10 14:33:00 Test Item Value Reference Range Comments B-TYPE NATRIURETIC PEPTIDE (BEAKER) (test 132 pg/mL 0-100 qhgt=937) BASIC METABOLIC [id number] 14:25:00 Test Item Value Reference Range Comments SODIUM (BEAKER) (test 137 meq/L 136-145 rjff=513) POTASSIUM (BEAKER) (test 4.9 meq/L 3.5-5.1 iiwo=316) CHLORIDE (BEAKER) (test 103 meq/L 98-107 eiwh=362) CO2 (BEAKER) (test 21 meq/L 22-29 iitq=398) BLOOD UREA NITROGEN 66 mg/dL 7-21 (BEAKER) (test kegp=783) CREATININE (BEAKER) (test 2.18 mg/dL 0.57-1.25 uxab=576) GLUCOSE RANDOM (BEAKER) 116 mg/dL 70-105 (test jymp=755) CALCIUM (BEAKER) (test 10.5 mg/dL 8.4-10.2 xmij=596) EGFR (BEAKER) (test 30 mL/min/1.73 sq m ESTIMATED GFR IS NOT yleu=2943) ACCURATE CREATININE CLEARANCE IN PREDICTING GLOMERULAR FILTRATION RATE. ESTIMATED GFR IS NOT APPLICABLE FOR DIALYSIS PATIENTS. BASIC METABOLIC [id number] 14:05:00 Test Item Value Reference Range Comments SODIUM (BEAKER) (test 134 meq/L 136-145 nzzp=840) POTASSIUM (BEAKER) (test 4.9 meq/L 3.5-5.1 hwvy=940) CHLORIDE (BEAKER) (test 105 meq/L 98-107 mkqx=569) CO2 (BEAKER) (test 18 meq/L 22-29 komo=168) BLOOD UREA NITROGEN 38 mg/dL 7-21 (BEAKER) (test wzzs=319) CREATININE (BEAKER) (test 1.67 mg/dL 0.57-1.25 mynv=681) GLUCOSE RANDOM (BEAKER) 154 mg/dL 70-105 (test oraf=666) CALCIUM (BEAKER) (test 9.8 mg/dL 8.4-10.2 dvcn=857) EGFR (BEAKER) (test 41 mL/min/1.73 sq m ESTIMATED GFR IS NOT ennw=5957) ACCURATE CREATININE CLEARANCE IN PREDICTING GLOMERULAR FILTRATION RATE. ESTIMATED GFR IS NOT APPLICABLE FOR DIALYSIS PATIENTS. B-TYPE NATRIURETIC FACTOR (BNP)2017-09-27 13:56:00 Test Item Value Reference Range Comments B-TYPE NATRIURETIC PEPTIDE (BEAKER) (test 194 pg/mL 0-100 caqq=198) CBC W/PLT COUNT & AUTO [id number] 13:27:00 Test Item Value Reference Range Comments WHITE BLOOD CELL COUNT (BEAKER) (test iegr=918) 5.9 K/ L 3.5-10.5 RED BLOOD CELL COUNT (BEAKER) (test cxvr=878) 3.74 M/ L 4.63-6.08 HEMOGLOBIN (BEAKER) (test uiiy=306) 11.3 GM/DL 13.7-17.5 HEMATOCRIT (BEAKER) (test jhla=741) 33.9 % 40.1-51.0 MEAN CORPUSCULAR VOLUME (BEAKER) (test nifr=030) 90.6 fL 79.0-92.2 MEAN CORPUSCULAR HEMOGLOBIN (BEAKER) (test 30.2 pg 25.7-32.2 prcp=106) MEAN CORPUSCULAR HEMOGLOBIN CONC (BEAKER) (test 33.3 GM/DL 32.3-36.5 ozff=747) RED CELL DISTRIBUTION WIDTH (BEAKER) (test 13.4 % 11.6-14.4 cwjj=368) PLATELET COUNT (BEAKER) (test ghsa=663) 131 K/CU MM 150-450 MEAN PLATELET VOLUME (BEAKER) (test adbl=565) 11.8 fL 9.4-12.4 NUCLEATED RED BLOOD CELLS (BEAKER) (test 0 /100 WBC 0-0 jfjx=568) NEUTROPHILS RELATIVE PERCENT (BEAKER) (test 64 % uzvy=712) LYMPHOCYTES RELATIVE PERCENT (BEAKER) (test 23 % mlvm=041) MONOCYTES RELATIVE PERCENT (BEAKER) (test 7 % nwun=815) EOSINOPHILS RELATIVE PERCENT (BEAKER) (test 4 % ppnt=905) BASOPHILS RELATIVE PERCENT (BEAKER) (test 1 % dqlf=990) NEUTROPHILS ABSOLUTE COUNT (BEAKER) (test 3.76 K/ L 1.78-5.38 tsuf=493) LYMPHOCYTES ABSOLUTE COUNT (BEAKER) (test 1.36 K/ L 1.32-3.57 ovhe=701) MONOCYTES ABSOLUTE COUNT (BEAKER) (test 0.42 K/ L 0.30-0.82 vtty=591) EOSINOPHILS ABSOLUTE COUNT (BEAKER) (test 0.23 K/ L 0.04-0.54 exiw=323) BASOPHILS ABSOLUTE COUNT (BEAKER) (test 0.05 K/ L 0.01-0.08 glkr=394) IMMATURE GRANULOCYTES-RELATIVE PERCENT (BEAKER) 1 % 0-1 (test iarr=0615) POCT-GLUCOSE [id number] 16:08:00 Test Item Value Reference Range Comments POC-GLUCOSE METER (BEAKER) 114 mg/dL 70-110 TESTED AT [facility] [address] [facility] (test xypt=5172) [facility] [address] BASIC METABOLIC [id number] 11:25:00 Test Item Value Reference Range Comments SODIUM (BEAKER) (test 138 meq/L 136-145 lrbe=924) POTASSIUM (BEAKER) (test 4.5 meq/L 3.5-5.1 Specimen slightly pyrk=146) hemolyzed CHLORIDE (BEAKER) (test 108 meq/L 98-107 khrk=812) CO2 (BEAKER) (test 22 meq/L 22-29 ihwq=482) BLOOD UREA NITROGEN 19 mg/dL 7-21 (BEAKER) (test zhqr=185) CREATININE (BEAKER) (test 1.07 mg/dL 0.57-1.25 Specimen slightly vuod=953) hemolyzed GLUCOSE RANDOM (BEAKER) 126 mg/dL 70-105 (test ysde=673) CALCIUM (BEAKER) (test 9.6 mg/dL 8.4-10.2 bmzp=172) EGFR (BEAKER) (test 69 mL/min/1.73 sq m ESTIMATED GFR IS NOT itgr=7737) ACCURATE CREATININE CLEARANCE IN PREDICTING GLOMERULAR FILTRATION RATE. ESTIMATED GFR IS NOT APPLICABLE FOR DIALYSIS PATIENTS. CBC W/PLT COUNT & AUTO [id number] 11:09:00 Test Item Value Reference Range Comments WHITE BLOOD CELL COUNT (BEAKER) (test jdbw=549) 6.1 K/ L 3.5-10.5 RED BLOOD CELL COUNT (BEAKER) (test vfib=987) 3.74 M/ L 4.63-6.08 HEMOGLOBIN (BEAKER) (test mztp=356) 11.3 GM/DL 13.7-17.5 HEMATOCRIT (BEAKER) (test latj=226) 33.9 % 40.1-51.0 MEAN CORPUSCULAR VOLUME (BEAKER) (test uhck=781) 90.6 fL 79.0-92.2 MEAN CORPUSCULAR HEMOGLOBIN (BEAKER) (test 30.2 pg 25.7-32.2 dcsn=168) MEAN CORPUSCULAR HEMOGLOBIN CONC (BEAKER) (test 33.3 GM/DL 32.3-36.5 yiyp=579) RED CELL DISTRIBUTION WIDTH (BEAKER) (test 14.1 % 11.6-14.4 shzm=330) PLATELET COUNT (BEAKER) (test lrkf=517) 150 K/CU MM 150-450 MEAN PLATELET VOLUME (BEAKER) (test peyt=124) 11.3 fL 9.4-12.4 NUCLEATED RED BLOOD CELLS (BEAKER) (test 0 /100 WBC 0-0 icxk=235) NEUTROPHILS RELATIVE PERCENT (BEAKER) (test 62 % xfoc=911) LYMPHOCYTES RELATIVE PERCENT (BEAKER) (test 23 % uzmf=331) MONOCYTES RELATIVE PERCENT (BEAKER) (test 9 % negx=835) EOSINOPHILS RELATIVE PERCENT (BEAKER) (test 5 % rgds=830) BASOPHILS RELATIVE PERCENT (BEAKER) (test 1 % kcgu=179) NEUTROPHILS ABSOLUTE COUNT (BEAKER) (test 3.77 K/ L 1.78-5.38 flpm=861) LYMPHOCYTES ABSOLUTE COUNT (BEAKER) (test 1.39 K/ L 1.32-3.57 kkux=104) MONOCYTES ABSOLUTE COUNT (BEAKER) (test 0.56 K/ L 0.30-0.82 cxnf=565) EOSINOPHILS ABSOLUTE COUNT (BEAKER) (test 0.28 K/ L 0.04-0.54 nstl=856) BASOPHILS ABSOLUTE COUNT (BEAKER) (test 0.04 K/ L 0.01-0.08 tihn=784) IMMATURE GRANULOCYTES-RELATIVE PERCENT (BEAKER) 1 % 0-1 (test iivx=8724) HEMOGLOBIN [id number] 04:47:00 Test Item Value Reference Range Comments HEMOGLOBIN A1C (BEAKER) (test zlin=249) 8.2 % 4.3-6.1 B-TYPE NATRIURETIC FACTOR (BNP)2017-08-16 15:16:00 Test Item Value Reference Range Comments B-TYPE NATRIURETIC PEPTIDE (BEAKER) (test 122 pg/mL 0-100 vyqi=751) LIPID [id number] 15:12:00 Test Item Value Reference Range Comments TRIGLYCERIDES (BEAKER) (test ysay=855) 240 mg/dL CHOLESTEROL (BEAKER) (test ymzq=082) 153 mg/dL HDL CHOLESTEROL (BEAKER) (test ljbj=847) 35 mg/dL LDL CHOLESTEROL CALCULATED (BEAKER) (test 70 mg/dL dgnj=923) Triglyceride Reference Range: Low Risk <150 Borderline 150- 199 High Risk 200-499 Very High Risk >=500Cholesterol Reference Range: Low Risk <200 Borderline 200-239 High Risk > 240HDL Cholesterol Reference Range: Low Risk >=60 High Risk <40LDL Cholesterol Reference Range: Optimal <100 Near Optimal 100-129 Borderline 130-159 High 160-189 Very High >=190BASIC METABOLIC [id number] 15:12:00 Test Item Value Reference Range Comments SODIUM (BEAKER) (test 131 meq/L 136-145 rcfp=931) POTASSIUM (BEAKER) (test 5.1 meq/L 3.5-5.1 dtje=161) CHLORIDE (BEAKER) (test 104 meq/L 98-107 lwgv=190) CO2 (BEAKER) (test 17 meq/L 22-29 cqwf=925) BLOOD UREA NITROGEN 36 mg/dL 7-21 (BEAKER) (test sdik=440) CREATININE (BEAKER) (test 1.54 mg/dL 0.57-1.25 iecl=870) GLUCOSE RANDOM (BEAKER) 205 mg/dL 70-105 (test llty=839) CALCIUM (BEAKER) (test 9.3 mg/dL 8.4-10.2 iefs=724) EGFR (BEAKER) (test 45 mL/min/1.73 sq m ESTIMATED GFR IS NOT rula=8721) ACCURATE CREATININE CLEARANCE IN PREDICTING GLOMERULAR FILTRATION RATE. ESTIMATED GFR IS NOT APPLICABLE FOR DIALYSIS PATIENTS. HEPATIC FUNCTION [id number] 15:12:00 Test Item Value Reference Range Comments TOTAL PROTEIN (BEAKER) (test gdpj=547) 7.2 gm/dL 6.0-8.3 ALBUMIN (BEAKER) (test ikez=3052) 4.3 g/dL 3.5-5.0 BILIRUBIN TOTAL (BEAKER) (test sxdq=166) 0.6 mg/dL 0.2-1.2 BILIRUBIN DIRECT (BEAKER) (test ggdz=159) 0.2 mg/dL 0.1-0.5 ALKALINE PHOSPHATASE (BEAKER) (test ikuf=435) 77 U/L 40-150 AST (SGOT) (BEAKER) (test fqyl=178) 20 U/L 5-34 ALT (SGPT) (BEAKER) (test gnwn=892) 26 U/L 6-55 CBC W/PLT COUNT & AUTO [id number] 14:49:00 Test Item Value Reference Range Comments WHITE BLOOD CELL COUNT (BEAKER) (test lmas=202) 5.9 K/ L 3.5-10.5 RED BLOOD CELL COUNT (BEAKER) (test uyhw=272) 3.74 M/ L 4.63-6.08 HEMOGLOBIN (BEAKER) (test xsbu=158) 11.0 GM/DL 13.7-17.5 HEMATOCRIT (BEAKER) (test mbsi=681) 32.7 % 40.1-51.0 MEAN CORPUSCULAR VOLUME (BEAKER) (test igwf=460) 87.4 fL 79.0-92.2 MEAN CORPUSCULAR HEMOGLOBIN (BEAKER) (test 29.4 pg 25.7-32.2 vjfz=650) MEAN CORPUSCULAR HEMOGLOBIN CONC (BEAKER) (test 33.6 GM/DL 32.3-36.5 gocg=276) RED CELL DISTRIBUTION WIDTH (BEAKER) (test 13.4 % 11.6-14.4 mbid=627) PLATELET COUNT (BEAKER) (test tqgk=378) 121 K/CU MM 150-450 MEAN PLATELET VOLUME (BEAKER) (test ihhs=646) 12.1 fL 9.4-12.4 NUCLEATED RED BLOOD CELLS (BEAKER) (test 0 /100 WBC 0-0 ogwj=505) NEUTROPHILS RELATIVE PERCENT (BEAKER) (test 65 % ranr=481) LYMPHOCYTES RELATIVE PERCENT (BEAKER) (test 22 % tdkv=184) MONOCYTES RELATIVE PERCENT (BEAKER) (test 7 % fmim=045) EOSINOPHILS RELATIVE PERCENT (BEAKER) (test 4 % oaht=527) BASOPHILS RELATIVE PERCENT (BEAKER) (test 1 % dcdq=610) NEUTROPHILS ABSOLUTE COUNT (BEAKER) (test 3.84 K/ L 1.78-5.38 vcda=012) LYMPHOCYTES ABSOLUTE COUNT (BEAKER) (test 1.32 K/ L 1.32-3.57 rrnt=654) MONOCYTES ABSOLUTE COUNT (BEAKER) (test 0.43 K/ L 0.30-0.82 vfxk=813) EOSINOPHILS ABSOLUTE COUNT (BEAKER) (test 0.26 K/ L 0.04-0.54 jdyy=101) BASOPHILS ABSOLUTE COUNT (BEAKER) (test 0.04 K/ L 0.01-0.08 xljb=301) IMMATURE GRANULOCYTES-RELATIVE PERCENT (BEAKER) 1 % 0-1 (test zvsd=5767) B-TYPE NATRIURETIC FACTOR (BNP)2017-06-07 15:23:00 Test Item Value Reference Range Comments B-TYPE NATRIURETIC PEPTIDE (BEAKER) (test 126 pg/mL 0-100 yzlq=374) BASIC METABOLIC [id number] 15:19:00 Test Item Value Reference Range Comments SODIUM (BEAKER) (test 137 meq/L 136-145 zlmm=930) POTASSIUM (BEAKER) (test 4.4 meq/L 3.5-5.1 vfkx=190) CHLORIDE (BEAKER) (test 107 meq/L 98-107 ijav=576) CO2 (BEAKER) (test 19 meq/L 22-29 ovnv=999) BLOOD UREA NITROGEN 31 mg/dL 7-21 (BEAKER) (test tdap=914) CREATININE (BEAKER) (test 1.38 mg/dL 0.57-1.25 caaw=253) GLUCOSE RANDOM (BEAKER) 235 mg/dL 70-105 (test zaoe=289) CALCIUM (BEAKER) (test 9.4 mg/dL 8.4-10.2 obea=998) EGFR (BEAKER) (test 51 mL/min/1.73 sq m ESTIMATED GFR IS NOT cueb=6204) ACCURATE CREATININE CLEARANCE IN PREDICTING GLOMERULAR FILTRATION RATE. ESTIMATED GFR IS NOT APPLICABLE FOR DIALYSIS PATIENTS. CBC W/PLT COUNT & AUTO [id number] 14:52:00 Test Item Value Reference Range Comments WHITE BLOOD CELL COUNT (BEAKER) (test verc=480) 7.6 K/ L 3.5-10.5 RED BLOOD CELL COUNT (BEAKER) (test opjt=236) 4.02 M/ L 4.63-6.08 HEMOGLOBIN (BEAKER) (test mdqe=570) 12.1 GM/DL 13.7-17.5 HEMATOCRIT (BEAKER) (test akfh=559) 35.7 % 40.1-51.0 MEAN CORPUSCULAR VOLUME (BEAKER) (test pwbg=389) 88.8 fL 79.0-92.2 MEAN CORPUSCULAR HEMOGLOBIN (BEAKER) (test 30.1 pg 25.7-32.2 dwmo=346) MEAN CORPUSCULAR HEMOGLOBIN CONC (BEAKER) (test 33.9 GM/DL 32.3-36.5 cixb=679) RED CELL DISTRIBUTION WIDTH (BEAKER) (test 13.2 % 11.6-14.4 upkk=393) PLATELET COUNT (BEAKER) (test vhjm=267) 165 K/CU MM 150-450 MEAN PLATELET VOLUME (BEAKER) (test wurf=724) 11.0 fL 9.4-12.4 NUCLEATED RED BLOOD CELLS (BEAKER) (test 0 /100 WBC 0-0 aeip=431) NEUTROPHILS RELATIVE PERCENT (BEAKER) (test 64 % xsgm=021) LYMPHOCYTES RELATIVE PERCENT (BEAKER) (test 20 % lank=717) MONOCYTES RELATIVE PERCENT (BEAKER) (test 8 % rfwu=254) EOSINOPHILS RELATIVE PERCENT (BEAKER) (test 7 % sboc=271) BASOPHILS RELATIVE PERCENT (BEAKER) (test 1 % uszo=050) NEUTROPHILS ABSOLUTE COUNT (BEAKER) (test 4.83 K/ L 1.78-5.38 gwpb=212) LYMPHOCYTES ABSOLUTE COUNT (BEAKER) (test 1.49 K/ L 1.32-3.57 ocqi=220) MONOCYTES ABSOLUTE COUNT (BEAKER) (test 0.62 K/ L 0.30-0.82 vcpq=138) EOSINOPHILS ABSOLUTE COUNT (BEAKER) (test 0.55 K/ L 0.04-0.54 jula=730) BASOPHILS ABSOLUTE COUNT (BEAKER) (test 0.06 K/ L 0.01-0.08 subf=759) IMMATURE GRANULOCYTES-RELATIVE PERCENT (BEAKER) 0 % 0-1 (test rgcv=1163) [id number] 10:24:00 Test Item Value Reference Range Comments ACTIVATED CLOTTING TIME 164 sec TESTED AT [facility] [address] [facility] (BEAKER) (test yzon=677) [facility] [address] [id number] 09:15:00 Test Item Value Reference Range Comments ACTIVATED CLOTTING TIME 202 sec TESTED AT [facility] [address] (BEAKER) (test xejm=691) [facility] [id number] BASIC METABOLIC [id number] 06:36:00 Test Item Value Reference Range Comments SODIUM (BEAKER) (test 134 meq/L 136-145 lyzk=095) POTASSIUM (BEAKER) (test 4.8 meq/L 3.5-5.1 omec=680) CHLORIDE (BEAKER) (test 105 meq/L 98-107 eivn=207) CO2 (BEAKER) (test 19 meq/L 22-29 dumv=678) BLOOD UREA NITROGEN 25 mg/dL 7-21 (BEAKER) (test hivt=976) CREATININE (BEAKER) (test 1.52 mg/dL 0.57-1.25 qesr=343) GLUCOSE RANDOM (BEAKER) 71 mg/dL 70-105 (test zado=586) CALCIUM (BEAKER) (test 9.4 mg/dL 8.4-10.2 cmfi=982) EGFR (BEAKER) (test 46 mL/min/1.73 sq m ESTIMATED GFR IS NOT xfiu=3379) ACCURATE CREATININE CLEARANCE IN PREDICTING GLOMERULAR FILTRATION RATE. ESTIMATED GFR IS NOT APPLICABLE FOR DIALYSIS PATIENTS. CBC W/PLT COUNT & AUTO [id number] 06:27:00 Test Item Value Reference Range Comments WHITE BLOOD CELL COUNT (BEAKER) (test tywz=068) 6.4 K/ L 4.0-10.0 RED BLOOD CELL COUNT (BEAKER) (test yepo=175) 3.85 M/ L 4.20-5.80 HEMOGLOBIN (BEAKER) (test lmgj=068) 11.7 GM/DL 13.0-16.8 HEMATOCRIT (BEAKER) (test twze=149) 35.9 % 40.0-50.0 MEAN CORPUSCULAR VOLUME (BEAKER) (test fmld=163) 93.2 fL 82.0-98.0 MEAN CORPUSCULAR HEMOGLOBIN (BEAKER) (test 30.5 pg 27.0-33.0 ozij=481) MEAN CORPUSCULAR HEMOGLOBIN CONC (BEAKER) (test 32.7 GM/DL 32.0-36.0 nrdu=744) RED CELL DISTRIBUTION WIDTH (BEAKER) (test 14.3 % 10.3-14.2 szko=246) PLATELET COUNT (BEAKER) (test mqst=404) 134 K/CU MM 150-430 MEAN PLATELET VOLUME (BEAKER) (test pgjf=430) 8.2 fL 6.5-10.5 NUCLEATED RED BLOOD CELLS (BEAKER) (test 0 /100 WBC 0-0 nuzl=782) NEUTROPHILS RELATIVE PERCENT (BEAKER) (test 66 % vyef=156) LYMPHOCYTES RELATIVE PERCENT (BEAKER) (test 22 % jzjp=046) MONOCYTES RELATIVE PERCENT (BEAKER) (test 7 % ktyv=511) EOSINOPHILS RELATIVE PERCENT (BEAKER) (test 5 % swcd=970) BASOPHILS RELATIVE PERCENT (BEAKER) (test 1 % ykvy=233) NEUTROPHILS ABSOLUTE COUNT (BEAKER) (test 4.26 K/ L 1.80-8.00 ddrt=326) LYMPHOCYTES ABSOLUTE COUNT (BEAKER) (test 1.39 K/ L 1.48-4.50 pwmf=311) MONOCYTES ABSOLUTE COUNT (BEAKER) (test 0.44 K/ L 0.00-1.30 hvsu=465) EOSINOPHILS ABSOLUTE COUNT (BEAKER) (test 0.29 K/ L 0.00-0.50 oyps=083) BASOPHILS ABSOLUTE COUNT (BEAKER) (test 0.06 K/ L 0.00-0.20 bqdd=262) 0.00POCT-GLUCOSE [id number] 06:22:00 Test Item Value Reference Range Comments POC-GLUCOSE METER (BEAKER) 72 mg/dL 70-110 TESTED AT [facility] [address] [facility] (test irif=0774) [facility] [address] PLATELET AGGREGATION: FUNCTION [id number] 17:48:00 Test Item Value Reference Range Comments WEAK ADP RESULT(BEAKER) (test 34 % 60-91 zhwj=5870) PLATELET FUNCTION SCREEN 0-39% indicates marked platelet INTERP (BEAKER) (test dysfunction hsbg=1381) [id number] Catalina Henderson MD (electronic (BEAKER) (test rsfq=4043) signature) PLATELET COUNT AGG (BEAKER) 168 K/CU MM 150-430 (test dhsr=9469) HEMOGLOBIN [id number] 14:16:00 Test Item Value Reference Range Comments HEMOGLOBIN A1C (BEAKER) (test nxbd=612) 6.0 % 4.3-6.1 B-TYPE NATRIURETIC FACTOR (BNP)2017-03-22 13:55:00 Test Item Value Reference Range Comments B-TYPE NATRIURETIC PEPTIDE (BEAKER) (test 283 pg/mL 0-100 ieyn=381) LIPID [id number] 13:51:00 Test Item Value Reference Range Comments TRIGLYCERIDES (BEAKER) (test pkyv=571) 329 mg/dL CHOLESTEROL (BEAKER) (test tuqz=434) 131 mg/dL HDL CHOLESTEROL (BEAKER) (test xnyx=751) 30 mg/dL LDL CHOLESTEROL CALCULATED (BEAKER) (test 35 mg/dL otru=354) Triglyceride Reference Range: Low Risk <150 Borderline 150- 199 High Risk 200-499 Very High Risk >=500Cholesterol Reference Range: Low Risk <200 Borderline 200-239 High Risk > 240HDL Cholesterol Reference Range: Low Risk >=60 High Risk <40LDL Cholesterol Reference Range: Optimal <100 Near Optimal 100-129 Borderline 130-159 High 160-189 Very High >=190BASIC METABOLIC [id number] 13:51:00 Test Item Value Reference Range Comments SODIUM (BEAKER) (test 135 meq/L 136-145 btmw=641) POTASSIUM (BEAKER) (test 3.8 meq/L 3.5-5.1 wiqt=006) CHLORIDE (BEAKER) (test 101 meq/L 98-107 igim=783) CO2 (BEAKER) (test 22 meq/L 22-29 auvy=477) BLOOD UREA NITROGEN 28 mg/dL 7-21 (BEAKER) (test qfto=822) CREATININE (BEAKER) (test 1.48 mg/dL 0.57-1.25 grkj=094) GLUCOSE RANDOM (BEAKER) 111 mg/dL 70-105 (test vbvy=032) CALCIUM (BEAKER) (test 9.4 mg/dL 8.4-10.2 iqsy=596) EGFR (BEAKER) (test 48 mL/min/1.73 sq m ESTIMATED GFR IS NOT ypnt=5157) ACCURATE CREATININE CLEARANCE IN PREDICTING GLOMERULAR FILTRATION RATE. ESTIMATED GFR IS NOT APPLICABLE FOR DIALYSIS PATIENTS. HEPATIC FUNCTION [id number] 13:51:00 Test Item Value Reference Range Comments TOTAL PROTEIN (BEAKER) (test zqsp=020) 7.4 gm/dL 6.0-8.3 ALBUMIN (BEAKER) (test cslf=2051) 4.3 g/dL 3.5-5.0 BILIRUBIN TOTAL (BEAKER) (test tmtd=066) 0.5 mg/dL 0.2-1.2 BILIRUBIN DIRECT (BEAKER) (test aqoq=444) 0.2 mg/dL 0.1-0.5 ALKALINE PHOSPHATASE (BEAKER) (test prph=992) 68 U/L 40-150 AST (SGOT) (BEAKER) (test hmph=407) 24 U/L 5-34 ALT (SGPT) (BEAKER) (test daai=484) 24 U/L 6-55 CBC W/PLT COUNT & AUTO [id number] 13:20:00 Test Item Value Reference Range Comments WHITE BLOOD CELL COUNT (BEAKER) (test nrop=714) 6.7 K/ L 4.0-10.0 RED BLOOD CELL COUNT (BEAKER) (test wivl=941) 3.55 M/ L 4.20-5.80 HEMOGLOBIN (BEAKER) (test sobv=603) 11.3 GM/DL 13.0-16.8 HEMATOCRIT (BEAKER) (test eqhv=223) 31.8 % 40.0-50.0 MEAN CORPUSCULAR VOLUME (BEAKER) (test thea=097) 89.6 fL 82.0-98.0 MEAN CORPUSCULAR HEMOGLOBIN (BEAKER) (test 31.8 pg 27.0-33.0 dkle=439) MEAN CORPUSCULAR HEMOGLOBIN CONC (BEAKER) (test 35.5 GM/DL 32.0-36.0 cpqi=590) RED CELL DISTRIBUTION WIDTH (BEAKER) (test 13.8 % 10.3-14.2 epcm=887) PLATELET COUNT (BEAKER) (test ntby=333) 136 K/CU MM 150-430 MEAN PLATELET VOLUME (BEAKER) (test dcwv=567) 7.8 fL 6.5-10.5 NUCLEATED RED BLOOD CELLS (BEAKER) (test 0 /100 WBC 0-0 issm=491) NEUTROPHILS RELATIVE PERCENT (BEAKER) (test 64 % yrvc=085) LYMPHOCYTES RELATIVE PERCENT (BEAKER) (test 20 % tizl=632) MONOCYTES RELATIVE PERCENT (BEAKER) (test 9 % tutl=266) EOSINOPHILS RELATIVE PERCENT (BEAKER) (test 7 % ndpx=675) BASOPHILS RELATIVE PERCENT (BEAKER) (test 0 % cnya=255) NEUTROPHILS ABSOLUTE COUNT (BEAKER) (test 4.28 K/ L 1.80-8.00 bgic=444) LYMPHOCYTES ABSOLUTE COUNT (BEAKER) (test 1.36 K/ L 1.48-4.50 iisf=664) MONOCYTES ABSOLUTE COUNT (BEAKER) (test 0.58 K/ L 0.00-1.30 xoae=249) EOSINOPHILS ABSOLUTE COUNT (BEAKER) (test 0.50 K/ L 0.00-0.50 ydiy=660) BASOPHILS ABSOLUTE COUNT (BEAKER) (test 0.01 K/ L 0.00-0.20 cywg=001) 0.00
[2019-06-11 11:35] LABS: Basophils % 0.9 % (0-1.3); Hematocrit 35.6 % (39.6-49.0); Lymphocytes % 25.9 % (15.3-44.8); MPV 10.1 fL (7.6-11.3); RBC Red Blood Cell Count 4.11 M/uL (4.33-5.43)
[2019-06-11 11:42] LABS: Protime INR 0.98
[2019-06-11 11:47] LABS: Urine Blood NEGATIVE (NEG); Urine Glucose NEGATIVE (NEG); Urine Protein NEGATIVE (NEG); Urine Specific Gravity 1.015 (1.005-1.030)
[2019-06-11 12:03] LABS: Potassium 5.3 mmol/L (3.5-5.1)
--- NOTE | 2019-06-11 12:03 | RAD REPORT ---
EXAM DESCRIPTION: CT - Head Brain Wo Cont - 06/11/2019 11:51 am CLINICAL HISTORY: DIZZINESS Hypertension, headache, drowsiness COMPARISON: No comparisons TECHNIQUE: All CT scans are performed using dose optimization technique as appropriate and may inclu de automated exposure control or mA/KV adjustment according to patient size. FINDINGS: No intracranial hemorrhage, hydrocephalus or extra-axial fluid collection.Generalized brai n atrophy is seen.No areas of brain edema or evidence of midline shift. The paranasal sinuses and mastoids are clear. The calvarium is intact. IMPRESSION: No acute intracranial abnormality.
[2019-06-11 12:04] LABS: Albumin 3.6 g/dL (3.4-5.0); Bilirubin Direct 0.1 mg/dL (0-0.2); Bilirubin Total 0.5 mg/dL (0.2-1.0); Protein, Total 6.8 g/dL (6.4-8.2); Troponin (Emerg Dept Use Only) 0.14 ng/mL (0.0-0.045)
--- NOTE | 2019-06-11 12:05 | RAD REPORT ---
EXAM DESCRIPTION: RAD - Chest Single View - 06/11/2019 11:57 am CLINICAL HISTORY: CHEST PAIN Chest pain. COMPARISON: Chest Single View dated 09/26/2018; CHEST PA AND LAT 2 VIEW dated 03/31/2011; CHEST SINGL E VIEW dated 10/22/2000 FINDINGS: Portable technique limits examination quality. The lungs are grossly clear. The heart is mildly enlarged in size with a multi lead pacer/defibrillat or device. Sternotomy wires present.
[2019-06-11] MEDS ORDERED: ASPIRIN 81 MG CHEWABLE TABLET ONE (12:42)
--- NOTE | 2019-06-11 13:21 | EDPHYS ---
Physician Documentation [facility] Name: Nii Zelaya Age: 69 yrs Sex: Male : 1950 Arrival Date: 06/11/2019 Time: 11:19 Bed 8 Private MD: ED Physician Bonilla Vasquez HPI: 06/11 11:22 This 69 yrs old Male presents to ER via Unassigned with complaints of chest rn pain, dizzy. 11:22 The patient or guardian reports chest pain that is located primarily in the substernal rn area. Onset: this morning. The pain does not radiate. The chest pain is described as a heaviness, a pressure. Modifying factors: The symptoms are alleviated by nothing. the symptoms are aggravated by nothing. Severity of pain: At its worst the pain was mild in the emergency department the pain has improved. The patient has experienced similar episodes in the past. Reports woke up feeling dizzy, like spinning, now improved, noted to be hypotensive by EMS, systolic in 70s, given only fluids, has not taken his meds today. NO fever. No cough. No abd pain. No vomiting/diarrhea. Reports feels slow mentation that is improved when sitting up and has improved since arrival. NO focal neurological complaints. . Historical: - Allergies: 11:40 No Known Allergies; sv - Home Meds: 11:46 ranotazine 1 gm BID [Active]; sacubitril-valsartan oral 97/103 mg BID oral [Active]; sv metoprolol succinate 50 mg oral Tb24 twice a day [Active]; Lasix 40 mg Oral tab 1 tab 2 times per day [Active]; Plavix 75 mg Oral tab 1 tab once daily [Active]; meclizine 12.5 mg Oral tab 2 times per day [Active]; Prilosec 20 mg Oral cpDR 1 cap once daily [Active]; atorvastatin 80 mg oral tab 1 tab nightly [Active]; Aldactone 25 mg Oral tab 1 tab once daily [Active]; aspirin 81 mg Oral chew 1 tab once daily [Active]; regene x [Active]; Lyrica 50 mg TID Oral [Active]; - PMHx: 11:40 CHF; on Heart Transplant List; pacemaker/defbrilator; sv - PSHx: 11:40 CABG; sv - Immunization history:: Adult Immunizations up to date. - Social history:: Smoking status: Patient/guardian denies using tobacco. - Family history:: not pertinent. - Ebola Screening: : No symptoms or risks identified at this time. - Hospitalizations: : No recent hospitalization is reported. ROS: 11:22 Constitutional: Negative for fever, chills, and weight loss, Eyes: Negative for injury, rn pain, redness, and discharge, Neck: Negative for injury, pain, and swelling, Cardiovascular: + chest pain Respiratory: Negative for cough, wheezing, and pleuritic chest pain, Abdomen/GI: Negative for abdominal pain, nausea, vomiting, diarrhea, and constipation, MS/Extremity: Negative for injury and deformity, Skin: Negative for injury, rash, and discoloration, Neuro: + generalized weakness Exam: 11:22 Constitutional: This is a well developed, well nourished patient who is awake, alert, rn and in no acute distress. Normal speech and interacting with all staff. Head/Face: Normocephalic, atraumatic. Eyes: Pupils equal round and reactive to light. Periorbital areas with no swelling, redness, or edema. ENT: MMM Cardiovascular: Irregular rhythm, no murmur, normal rate Respiratory: Lungs have equal breath sounds bilaterally, clear to auscultation. No increased work of breathing, no retractions or nasal flaring. Speaking full sentences Abdomen/GI: soft, non-tender MS/ Extremity: Pulses equal, no cyanosis. Neurovascular intact. Full, normal range of motion. Equal circumference. Neuro: Awake and alert, GCS 15, oriented to person, place, time, and situation. Cranial nerves II-XII grossly intact. Motor strength 5/5 in all extremities. Sensory grossly intact. Cerebellar exam normal. No broken speech, speaking full sentences 11:47 ECG was reviewed by the Attending Physician. rn Vital Signs: 11:07 BP 129 / 81; Pulse 65; Resp 16; Temp 98.7; Pulse Ox 100% ; sv 12:10 BP 126 / 73; Pulse 61 MON; Resp 17; Pulse Ox 100% on R/A; sv 12:30 BP 122 / 64; Pulse 60; Resp 19; Pulse Ox 100% ; sv 13:10 BP 125 / 77; Pulse 60; Resp 16; Pulse Ox 99% ; sv 13:30 BP 133 / 76; Pulse 60; Resp 20; Pulse Ox 100% on R/A; sv 14:50 BP 128 / 74; Pulse 60; Resp 14; Temp 97.9(TE); Pulse Ox 99% on R/A; ph 15:00 BP 111 / 72; Pulse 60; Resp 17; Pulse Ox 100% on R/A; sv 12:10 Sinus Rhythm sv [place] Coma Score: 11:03 Eye Response: spontaneous(4). Verbal Response: oriented(5). Motor Response: obeys sv commands(6). Total: 15. 11:49 Eye Response: spontaneous(4). Verbal Response: oriented(5). Motor Response: obeys sv commands(6). Total: 15. MDM: 11:19 Patient medically screened. rn 13:15 Differential diagnosis: acute myocardial infarction, acute pericarditis, anxiety, rn coronary artery disease costochondritis, pleurisy, pneumothorax, stable angina, unstable angina. The patient was given aspirin in the Emergency Department. Data reviewed: vital signs, nurses notes, lab test result(s), EKG, radiologic studies, CT scan, plain films, and as a result, I will admit patient. Counseling: I had a detailed discussion with the patient and/or guardian regarding: the historical points, exam findings, and any diagnostic results supporting the discharge/admit diagnosis, lab results, radiology results, the need for further work-up and treatment in the hospital. Response to treatment: the patient's symptoms have markedly improved after treatment, the patient's condition has returned to base line, and as a result, I will discharge patient. Admission orders: after a detailed discussion of the patient's condition and case, the admit orders are written by me. ED course: Pt with known CAd, on transplant list, currently medically managed, with another episode of chest pressure, but was hypotensive, has now corrected, and patient feels better after IV fluids by EMS. NO chest pain. No dyspnea. Elevated trop and BNP, patient states overdid it yesterday working and may have gotten dehydrated in conjunction with diuretics. . 06/11 11:20 Order name: Basic Metabolic Panel; Complete Time: 12:23 rn 06/11 11:20 Order name: CBC with Diff; Complete Time: 12:05 rn 06/11 11:20 Order name: LFT's; Complete Time: 12:23 rn 06/11 11:20 Order name: NT PRO-BNP; Complete Time: 12: rn 06/11 11:20 Order name: PT-INR; Complete Time: 12: rn 06/11 11:20 Order name: Troponin (emerg Dept Use Only); Complete Time: 12: rn 06/11 11:20 Order name: XRAY Chest (1 view); Complete Time: 12: rn 06/11 11:20 Order name: EKG; Complete Time: 11: rn 06/11 11:20 Order name: Cardiac monitoring; Complete Time: rn 06/11 11:20 Order name: EKG - Nurse/Tech; Complete Time: rn 06/11 11:20 Order name: CT Head Brain wo Cont; Complete Time: 12: rn 06/11 11:42 Order name: Urine Dipstick--Ancillary (enter results); Complete Time: 12: bd 06/11 11:20 Order name: IV Saline Lock; Complete Time: rn 06/11 11:20 Order name: Labs collected and sent; Complete Time: rn 06/11 11:20 Order name: O2 Per Protocol; Complete Time: rn 06/11 11:20 Order name: O2 Sat Monitoring; Complete Time: : rn EC:47 Rate is 60 beats/min. Rhythm is regular. QRS [place] is Normal. [place] interval is prolonged rn at 242 msec. QRS interval is normal. QT interval is normal. T waves are Normal. No ST changes noted. Clinical impression: Paced rhythm. Interpreted by me. Reviewed by me. Administered Medications: 11:03 Drug: NS 0.9% 250 ml Route: IV; Rate: 1 bolus; Site: left hand; sv 11:42 Follow up: Response: No adverse reaction; IV Status: Completed infusion; IV Intake: sv 250ml 12:38 Drug: Aspirin Chewable Tablet 324 mg Route: PO; sv 13:00 Follow up: Response: No adverse reaction sv Point of Care Testing: Blood Glucose: 11:21 Blood Glucose: 165 mg/dL; sv Ranges: Critical Glucose Levels:Adult <50 mg/dl or >400 mg/dl <40 mg/dl or >180 mg/dl Disposition: 06/11/19 13:19 Hospitalization ordered by Luis Carlos Juares for Observation. Preliminary diagnosis are Chest pain, unspecified, Unspecified combined systolic (congestive) and diastolic (congestive) heart failure, Hypotension, unspecified. - Bed requested for Telemetry/MedSurg (observation). - Status is Observation. sv - Condition is Stable. - Problem is new. - Symptoms have improved. UTI on Admission? No Signatures: Dispatcher [employer] EDRI Buffy Conteh RN RN sv Woody, Diana, RN RN dw Nieto, Roman, MD MD distance learning unit leader: (The following items were deleted from the chart) 13:19 13:19 Hospitalization Ordered by Luis Carlos Juares MD for Observation. Preliminary diagnosis rn is Chest pain, unspecified; Unspecified combined systolic (congestive) and diastolic (congestive) heart failure. Bed requested for Telemetry/MedSurg (observation). Status is Observation. Condition is Stable. Problem is new. Symptoms have improved. UTI on Admission? No. rn 14:41 13:19 06/11/2019 13:19 Hospitalization Ordered by Luis Carlos Juares MD for Observation. dw Preliminary diagnosis is Chest pain, unspecified; Unspecified combined systolic (congestive) and diastolic (congestive) heart failure; Hypotension, unspecified. Bed requested for Telemetry/MedSurg (observation). Status is Observation. Condition is Stable. Problem is new. Symptoms have improved. UTI on Admission? No. rn 15:21 14:41 06/11/2019 13:19 Hospitalization Ordered by Luis Carlos Juares MD for Observation. sv Preliminary diagnosis is Chest pain, unspecified; Unspecified combined systolic (congestive) and diastolic (congestive) heart failure; Hypotension, unspecified. Bed requested for Telemetry/MedSurg (observation). Status is Observation. Condition is Stable. Problem is new. Symptoms have improved. UTI on Admission? No. dw
--- NOTE | 2019-06-11 13:21 | ER ---
Nurse's Notes [facility] Name: Nii Zelaya Age: 69 yrs Sex: Male : 1950 Arrival Date: 06/11/2019 Time: 11:19 Bed 8 Private MD: Diagnosis: Chest pain, unspecified;Unspecified combined systolic (congestive) and diastolic (congestive) heart failure;Hypotension, unspecified Presentation: 06/11 11:03 Presenting complaint: EMS states: called out for hypotension, slurred speech, tremors, sv chest pain since 0945 today. On EMS arrival pt had normal speech, chest pain, dizziness, negative orthostatics and Stroke scale. BP 75/40, EKG-SR 65. Transition of care: patient was not received from another setting of care. Onset of symptoms was June 11, 2019 at 09:45. Risk Assessment: Do you want to hurt yourself or someone else? Patient reports no desire to harm self or others. Initial Sepsis Screen: Does the patient meet any 2 criteria? No. Patient's initial sepsis screen is negative. Does the patient have a suspected source of infection? No. Patient's initial sepsis screen is negative. Care prior to arrival: Medication(s) given: Normal saline infusion, IV initiated. 20 GA, in the left hand, Glucose check: 176. 11:03 Method Of Arrival: EMS: [facility] 11:03 Acuity: WILLIAM 2 sv Triage Assessment: 11:03 General: Appears in no apparent distress. comfortable, well developed, Behavior is sv calm, cooperative, appropriate for age. Pain: Complains of pain in chest Pain currently is 5 out of 10 on a pain scale. Quality of pain is described as pressure, Pain began 0945 Is intermittent. Neuro: Level of Consciousness is awake, alert, obeys commands, Oriented to person, place, time, situation, Director Bioinformatics are equal bilaterally Moves all extremities. Full function Speech is normal, Facial symmetry appears normal, Reports dizziness, "I'm having a hard time getting my words out correctly.". Cardiovascular: Patient's skin is warm and dry. Pulses are 3+ in right radial artery and left radial artery. Respiratory: Airway is patent Respiratory effort is even, unlabored, Respiratory pattern is regular, symmetrical. Derm: Skin is pink, warm \\T\\ dry. Musculoskeletal: Range of motion: intact in all extremities. Historical: - Allergies: 11:40 No Known Allergies; sv - Home Meds: 11:46 ranotazine 1 gm BID [Active]; sacubitril-valsartan oral 97/103 mg BID oral [Active]; sv metoprolol succinate 50 mg oral Tb24 twice a day [Active]; Lasix 40 mg Oral tab 1 tab 2 times per day [Active]; Plavix 75 mg Oral tab 1 tab once daily [Active]; meclizine 12.5 mg Oral tab 2 times per day [Active]; Prilosec 20 mg Oral cpDR 1 cap once daily [Active]; atorvastatin 80 mg oral tab 1 tab nightly [Active]; Aldactone 25 mg Oral tab 1 tab once daily [Active]; aspirin 81 mg Oral chew 1 tab once daily [Active]; regene x [Active]; Lyrica 50 mg TID Oral [Active]; - PMHx: 11:40 CHF; on Heart Transplant List; pacemaker/defbrilator; sv - PSHx: 11:40 CABG; sv - Immunization history:: Adult Immunizations up to date. - Social history:: Smoking status: Patient/guardian denies using tobacco. - Family history:: not pertinent. - Ebola Screening: : No symptoms or risks identified at this time. - Hospitalizations: : No recent hospitalization is reported. Screenin:20 Patient has been NPO before screening. The patient is alert, able to follow commands. sv The patient does not exhibit slurred or garbled speech The patient is not exhibiting difficulty speaking. The patient does not exhibit difficulty understanding words. The patient is able to swallow own secretions with no drooling or need for suction. Patient tolerated one teaspoon of water. No drooling, immediate coughing, gurgling, or clearing of the throat was noted. The patient tolerated 90mL of water. No drooling, immediate coughing, gurgling, or clearing of the throat was noted. The patient passed the bedside swallow screening. Oral medications may be given as ordered. Contact Physician for further diet orders. Provider notified of bedside swallow screening results: Bonilla Vasquez MD. 11:30 Abuse screen: Denies threats or abuse. Denies injuries from another. Nutritional sv screening: No deficits noted. Tuberculosis screening: No symptoms or risk factors identified. Fall Risk None identified. Assessment: 11:49 Reassessment: Patient appears in no apparent distress at this time. No changes from sv previously documented assessment. Patient and/or family updated on plan of care and expected duration. Pain level reassessed. Patient is alert, oriented x 3, equal unlabored respirations, skin warm/dry/pink. 12:20 Reassessment: Patient appears in no apparent distress at this time. No changes from sv previously documented assessment. Patient and/or family updated on plan of care and expected duration. Pain level reassessed. Patient is alert, oriented x 3, equal unlabored respirations, skin warm/dry/pink. 13:54 Reassessment: Patient appears in no apparent distress at this time. No changes from sv previously documented assessment. Patient and/or family updated on plan of care and expected duration. Pain level reassessed. Patient is alert, oriented x 3, equal unlabored respirations, skin warm/dry/pink. 15:02 Reassessment: Patient appears in no apparent distress at this time. Patient and/or ph family updated on plan of care and expected duration. Pain level reassessed. Patient is alert, oriented x 3, equal unlabored respirations, skin warm/dry/pink. Report called to Cathie CHERRY. Vital Signs: 11:07 BP 129 / 81; Pulse 65; Resp 16; Temp 98.7; Pulse Ox 100% ; sv 12:10 BP 126 / 73; Pulse 61 MON; Resp 17; Pulse Ox 100% on R/A; sv 12:30 BP 122 / 64; Pulse 60; Resp 19; Pulse Ox 100% ; sv 13:10 BP 125 / 77; Pulse 60; Resp 16; Pulse Ox 99% ; sv 13:30 BP 133 / 76; Pulse 60; Resp 20; Pulse Ox 100% on R/A; sv 14:50 BP 128 / 74; Pulse 60; Resp 14; Temp 97.9(TE); Pulse Ox 99% on R/A; ph 15:00 BP 111 / 72; Pulse 60; Resp 17; Pulse Ox 100% on R/A; sv 12:10 Sinus Rhythm sv [place] Coma Score: 11:03 Eye Response: spontaneous(4). Verbal Response: oriented(5). Motor Response: obeys sv commands(6). Total: 15. 11:49 Eye Response: spontaneous(4). Verbal Response: oriented(5). Motor Response: obeys sv commands(6). Total: 15. ED Course: 11:03 Bed in low position. Call light in reach. Side rails up X2. monitor tech on. Pulse sv ox on. NIBP on. 11:03 Maintain EMS IV. Dressing intact. Site clean \\T\\ dry. Gauge \\T\\ site: 20G left hand. sv Patient maintains SpO2 saturation greater than 95% on room air. 11:15 Arm band placed on. sv 11:15 Patient has correct armband on for positive identification. sv 11:19 Patient arrived in ED. rn 11:19 Bonilla Vasquez MD is Attending Physician. rn 11:21 Initial lab(s) drawn, by me, sent to lab. Inserted saline lock: 22 gauge in left sv antecubital area, using aseptic technique. Blood collected. Flushed left antecubital with 5 ml normal saline. 11:28 Triage completed. sv 11:29 Buffy Conteh RN is Primary Nurse. ss 11:35 Urine collected: clean catch specimen, clear. sv 11:[address] via stretcher. sv 11:46 Awaiting lab results, Awaiting radiology results. sv 11:50 EKG done, by highway technician. reviewed by Bonilla Vasquez MD. at1 11:51 CT Head Brain wo Cont In Process Unspecified. EDMS 11:57 X-ray completed. Patient tolerated procedure well. Patient moved to radiology via jb2 stretcher. Patient moved back from radiology. 11:58 XRAY Chest (1 view) In Process Unspecified. EDMS 13:17 Luis Carlos Juares MD is Hospitalizing Provider. rn 14:51 No provider procedures requiring assistance completed. Patient admitted, IV remains in ph place. Administered Medications: 11:03 Drug: NS 0.9% 250 ml Route: IV; Rate: 1 bolus; Site: left hand; sv 11:42 Follow up: Response: No adverse reaction; IV Status: Completed infusion; IV Intake: sv 250ml 12:38 Drug: Aspirin Chewable Tablet 324 mg Route: PO; sv 13:00 Follow up: Response: No adverse reaction sv Point of Care Testing: Blood Glucose: 11:21 Blood Glucose: 165 mg/dL; sv Ranges: Intake: 11:42 IV: 250ml; Total: 250ml. sv Outcome: 13:19 Decision to Hospitalize by Provider. rn 15:02 Admitted to Tele accompanied by tech, via wheelchair, room 228, with chart, Report ph called to Cathie 15:02 Condition: stable 15:21 Patient left the ED. sv Signatures: Dispatcher [employer] Buffy Archer, RN RN Shawn Cortez Roman, MD MD rn Smirch, Shelby, RN RN Sissy Morales, career services representative EKG Tat1 Kristin Lewis RN RN ph
--- NOTE | 2019-06-11 15:28 | EKG ---
Test Date: 2019-06-11 Test Time: 11:46:28 [place]: RENNY MEASUREMENT RESULTS: Intervals: Rate: 60 FL: 242 QRSD: 122 QT: 482 QTc: 482 Essie: P: -20 FL: 242 QRS: 53 T: 44 INTERPRETIVE STATEMENTS: Electronic atrial pacemaker Anteroseptal infarct, age undetermined Abnormal ECG Compared to ECG 09/26/2018 11:23:10 Sinus rhythm no longer present First degree AV block no longer present Myocardial infarct finding still present Electronically Signed On 06-11-19 15:27:38 CDT by Micheal Garrison
[2019-06-11] MEDS ORDERED: MORPHINE 4 MG/ML SYR IV PRN (15:33)
[2019-06-11] MEDS ORDERED: NITROGLYCERIN 0.4 MG/TAB SL PRN (15:33)
[2019-06-11] MEDS: INSULIN -REGULAR HUMAN 50 UNIT/0.5 ML ML SQ SCH ×2 (16:30→21:00)
--- NOTE | 2019-06-11 17:35 | P.HP ---
Certification for Inpatient Patient admitted to: Observation With expected LOS: <2 Midnights Practitioner: I am a practitioner with admitting privileges, knowledge of patient current condition, hospital course, and medical plan of care. Services: Services provided to patient in accordance with Admission requirements found in Title 42 Section 412.3 of the Code of Federal Regulations Patient History Date of Service: 06/11/19 Reason for admission: Chest pain History of Present Illness: This is a 69 male with history of diabetes, hypertension, history of stroke, CAD with prior [place], defibrillator/pacemaker placement admitted for chest pain. Per patient and at bedside, patient started with chest pain this morning. He described it as a discomfort/pressure-like sensation in the sternal area, without any radiation. No alleviating or exacerbating factors. He states that he has these episodes every once in a while. Therefore called the EMS. Blood pressure found to be in the SBP of 70s by the EMS. He was given 500 IV fluid bolus and then brought to the emergency room. In the ER, his blood pressure was stable, he was hemodynamically stable. Labs were remarkable for creatinine elevated at 2.9 and potassium elevated at 5.3. His troponin was also elevated to 0.14. Head CT was negative for any acute abnormalities. Chest x-ray was with defibrillator/pacemaker in place, sternotomy wires in place. At the time of my exam, he is alert oriented x3, sitting up and eating well bed comfortably, in no acute distress. His chest pain had completely resolved. She was admitted for further evaluation of this chest pain as he is high risk patient. Allergies No Known Allergies Allergy (Verified 06/11/19 15:36) Home medications list reviewed: Yes Home Medications: Aspirin Chewable [Aspirin Chewable*] 81 mg PO DAILY 06/11/19 Atorvastatin Calcium [Lipitor] 80 mg PO BEDTIME 06/11/19 Clopidogrel Bisulfate [Plavix*] 75 mg PO DAILY 06/11/19 Furosemide [Lasix*] 40 mg PO BID 06/11/19 Meclizine HCl [Antivert*] 12.5 mg PO BID 06/11/19 Metoprolol Succinate [Toprol Xl*] 50 mg PO BID 06/11/19 Omeprazole 20 mg PO DAILY 06/11/19 Pregabalin [Lyrica*] 50 mg PO TID 06/11/19 Ranolazine [Ranexa] 1,000 mg PO BID 06/11/19 Sacubitril/Valsartan [Entresto 97 mg-103 mg Tablet] 1 tab PO BID 06/11/19 Spironolactone [Aldactone*] 40 mg PO DAILY 06/11/19 - Past Medical/Surgical History Has patient received pneumonia vaccine in the past: No Diabetic: Yes -: Diabetes -: high blood pressure -: [place] -: stroke -: open heart sx - Family History Father -: Cancer Mother -: Heart disease, Diabetes - Social History Smoking Status: Former smoker Alcohol use: Yes CD- Drugs: No Caffeine use: Yes Place of Residence: Home Review of Systems 10-point ROS is otherwise unremarkable Physical Examination - Vital Signs Temperature: 97.9 F Blood Pressure: 111/72 Pulse: 60 Respirations: 17 - Physical Exam General: Alert, In no apparent distress, Oriented x3 HEENT: Atraumatic, PERRLA, Mucous membr. moist/pink, EOMI, Sclerae nonicteric Neck: Supple, 2+ carotid pulse no bruit, No LAD, Without JVD or thyroid abnormality Respiratory: Clear to auscultation bilaterally, Normal air movement Cardiovascular: Regular rate/rhythm, Normal S1 S2 Gastrointestinal: Normal bowel sounds, No tenderness Musculoskeletal: No tenderness Integumentary: No rashes Neurological: Normal gait, Normal speech, Normal strength at 5/5 x4 extr, Normal tone, Normal affect Lymphatics: No axilla or inguinal lymphadenopathy - Studies Laboratory Data (last 24 hrs) 06/11/19 11:20: PT 11.6, INR 0.98 06/11/19 11:20: WBC 3.9 L, Hgb 12.0 L, Hct 35.6 L, Plt Count 110 L 06/11/19 11:20: Sodium 135 L, Potassium 5.3 H, BUN 75 H, Creatinine 2.90 H, Glucose 149 H, Total Bilirubin 0.5, AST 15, ALT 25, Alkaline Phosphatase 66 Assessment and Plan - Problems (Diagnosis) (1) Chest pain Current Visit: Yes Status: Acute Qualifiers: Chest pain type: unspecified Qualified Code(s): R07.9 - Chest pain, unspecified (2) Elevated troponin Current Visit: Yes Status: Acute (3) Cardiac defibrillator in place Current Visit: No Status: Chronic (4) AIMEE (acute kidney injury) Current Visit: Yes Status: Acute (5) CHF (congestive heart failure) Current Visit: Yes Status: Acute Qualifiers: Heart failure type: unspecified Heart failure chronicity: chronic Qualified Code(s): I50.9 - Heart failure, unspecified (6) CAD (coronary artery disease) Current Visit: No Status: Chronic Qualifiers: Coronary Disease-Associated Artery/Lesion type: [place] artery [place] vs. transplanted heart: [place] heart Associated angina: with stable angina Qualified Code(s): I25.118 - Atherosclerotic heart disease of [place] coronary artery with other forms of angina pectoris (7) History of CVA (cerebrovascular accident) Current Visit: No Status: Chronic - Plan Admit patient to the floor for observation. Troponin elevated x1. Trend troponins. Cardiology consult Restart home medications, including entresto and ranexa Monitor vital signs labs. Gentle IV hydration as patient with a history of CHF Anticipate discharge home in the next 24 hr once cleared by Cardiology and symptomatic improvement. Discharge Plan: Home Plan to discharge in: 24 Hours - Advance Directives Does patient have a Living Will: No Does patient have a Durable POA for Healthcare: No Time Spent Managing Pts Care (In Minutes): 55
[2019-06-11] MEDS ORDERED: METOPROLOL XL 50 MG TAB PO SCH (21:00)
[2019-06-11] MEDS ORDERED: METOPROLOL TAR 50 MG TAB PO SCH (21:00)
[2019-06-11] MEDS ORDERED: FUROSEMIDE 40 MG TABLET PO SCH (21:00)
[2019-06-11] MEDS ORDERED: ATORVASTATIN 80 MG TAB PO SCH (21:00)
[2019-06-11] MEDS: SACUBITRIL PO SCH (21:00)
[2019-06-11] MEDS ORDERED: HOME MED 1 EA UNK (Ranolazine [Ranexa] 1,000 MG) PO SCH (21:00)
[2019-06-11] MEDS: VALSARTAN PO SCH (21:00)
[2019-06-11] MEDS: PREGABALIN 50 MG CAP PO SCH (21:21)
[2019-06-11] MEDS: MECLIZINE HCL 12.5 MG TAB PO SCH (21:21)
[2019-06-12] MEDS ORDERED: NA CHLORIDE 0.9% 500 ML IV ONE (05:39)
[2019-06-12 06:23] LABS: Absolute Lymphocytes (CBC) 1.5 K/uL (0.7-4.9); Basophils % 0.8 % (0-1.3); Hematocrit 38.5 % (39.6-49.0); Lymphocytes % 23.9 % (15.3-44.8); RBC Red Blood Cell Count 4.54 M/uL (4.33-5.43)
[2019-06-12 06:42] LABS: Potassium 4.4 mmol/L (3.5-5.1)
[2019-06-12] MEDS ORDERED: PANTOPRAZOLE 40MG TABLET PO SCH (07:30)
[2019-06-12] MEDS: INSULIN -REGULAR HUMAN 50 UNIT/0.5 ML ML SQ SCH (07:30)
[2019-06-12] MEDS ORDERED: CLOPIDOGREL 75 MG TABLET PO SCH ×2 (09:00)
[2019-06-12] MEDS ORDERED: HOME MED 1 EA UNK (Omeprazole [Omeprazole] 20 MG) PO SCH (09:00)
[2019-06-12] MEDS ORDERED: ASPIRIN EC 81 MG TAB PO SCH (09:00)
[2019-06-12] MEDS ORDERED: METOPROLOL XL 50 MG TAB PO SCH (09:00)
[2019-06-12] MEDS ORDERED: FUROSEMIDE 40 MG TABLET PO SCH (09:00)
[2019-06-12] MEDS: VALSARTAN PO SCH (09:00)
[2019-06-12] MEDS ORDERED: SPIRONOLACTONE 25 MG TABLET PO SCH (09:00)
[2019-06-12] MEDS: SACUBITRIL PO SCH (09:00)
[2019-06-12] MEDS ORDERED: ASPIRIN 81 MG CHEWABLE TABLET PO SCH (09:00)
[2019-06-12] MEDS: MECLIZINE HCL 12.5 MG TAB PO SCH (09:17)
[2019-06-12] MEDS: PREGABALIN 50 MG CAP PO SCH (09:17)
--- NOTE | 2019-06-12 13:00 | CON ---
Date of Consultation: 06/12/2019 The patient was admitted to Dr. Juares's service on 06/11/2019. I saw the patient on 06/12/2019. Reason For Consultation: Chest pain. History Of Present Illness: Mr. Zelaya is a 69-year-old male. He has a known compl icated past cardiac history. He has a history of coronary artery disease status post CABG. He has a history of chronic systolic congestive heart failure, was later on the pacemaker. He is on the [facility]nel[facility] spl[facility] list. He has a history of neuropathy, hypertension, and dyslipidemia as well. He came in wit h substernal chest pain that has resolved by the time we saw him. Denied PND, orthopnea, pedal edema , palpitation, or syncope. Chest x-ray was negative. Troponin was negative. EKG showed a paced rhythm. Allergies: NONE. Review of Systems: Negative. Social History: Negative. Family History: Noncontributory. Medications: At home, include Ranexa, Entresto, Lasix, metoprolol, Lipitor, Plavix, Aldactone, aspir in, and Lyrica. Physical Examination: General: Mr. Zelaya is in no acute distress. He was in a paced rhythm. Afebrile. HEENT: Negative. Neck: Supple without any bruit, lymphadenopathy, JVD, or thyromegaly. Chest: Clear to auscultation and percussion. Cardiac: Exam revealed a paced rhythm. No murmurs, gallops, or rubs. Abdomen: Benign. Extremities: Revealed no clubbing, cyanosis, or edema. Skin: Dry and intact. Neurological: He was nonfocal. Pulses are present bilaterally symmetrically. Impression And Plan: 1.Chest pain angina. 2.History of coronary artery bypass grafting, automatic implantable cardioverter-defibrillator and a pacemaker. 3.Chronic systolic congestive heart failure on the transplant list. 4.Neuropathy. 5.Hypertension. 6.Dyslipidemia. Mr. Zelaya is a patient of at [facility]. He is also a patient on the tr ansplant list and awaiting transplantation. He is on appropriate therapy. He is on Ranexa 1000 b.i. d. I suggested that he increase his metoprolol dose on as needed basis for the for chest pain. He h as ruled out. I do not recommend a heart catheterization at this point. We will continue medical [facility]. I think he is comfortable enough to go home and he will follow up with his doctors up in [facility]. There is an echocardiogram pending. MARGOT/RD Voice ID: [id number] Report ID: [id number]
--- NOTE | 2019-06-12 13:57 | ECHO ---
HEIGHT: 5 ft 5 in WEIGHT: 167 lb 8 oz DATE OF STUDY: 06/12/[address]: Shakeel Denis MD 2-DIMENSIONAL: YES M.MODE: YES DOPPLER: YES COLOR FLOW: YES TDS: NO PORTABLE: NO DEFINITY: NO BUBBLE STUDY: NO DIAGNOSIS: CONGESTIVE HEART FAILURE CARDIAC HISTORY: CATHERIZATION: NO SURGERY: YES PROSTHETIC VALVE: NO PACEMAKER: YES MEASUREMENTS (cm) DIASTOLIC (NORMALS) SYSTOLIC (NORMALS) IVSd 1.0 (0.6-1.2) LA Diam 4.4 (1.9-4.0) LVEF 30-35 % LVIDd 4.2 (3.5-5.7) LVIDs 3.3 (2.0-3.5) %FS % LVPWd 1.0 (0.6-1.2) Ao Diam 3.1 (2.0-3.7) 2 DIMENSIONAL ASSESSMENT: RIGHT ATRIUM: NORMAL LEFT ATRIUM: DILATED RIGHT VENTRICLE: NORMAL LEFT VENTRICLE: NORMAL TRICUSPID VALVE: NORMAL MITRAL VALVE: NORMAL PULMONIC VALVE: NORMAL AORTIC VALVE: NORMAL PERICARDIAL EFFUSION: NONE AORTIC ROOT: NORMAL LEFT VENTRICULAR WALL MOTION: SEVERE GLOBAL HYPOKINESIS. DOPPLER/COLOR FLOW: MILD TRICUSPID AND MITRAL REGURGITATION. COMMENTS: SEVERE GLOBAL HYPOKINESIS. EJECTION FRACTION 30-35%. PACER IN RIGHT VENTRICULAR APEX. LEFT ATRIAL ENLARGEMENT. TECHNOLOGIST: BEKA COULTER
--- NOTE | 2019-06-12 14:58 | P.SSS ---
Patient History Date of Service: 06/12/19 Reason for admission: Chest pain History of Present Illness: This is a 69 male with history of diabetes, hypertension, history of stroke, CAD with prior RI, defibrillator/pacemaker placement admitted for chest pain. Per patient and at bedside, patient started with chest pain this morning. He described it as a discomfort/pressure-like sensation in the sternal area, without any radiation. No alleviating or exacerbating factors. He states that he has these episodes every once in a while. Therefore called the EMS. Blood pressure found to be in the SBP of 70s by the EMS. He was given 500 IV fluid bolus and then brought to the emergency room. In the ER, his blood pressure was stable, he was hemodynamically stable. Labs were remarkable for creatinine elevated at 2.9 and potassium elevated at 5.3. His troponin was also elevated to 0.14. Head CT was negative for any acute abnormalities. Chest x-ray was with defibrillator/pacemaker in place, sternotomy wires in place. At the time of my exam, he is alert oriented x3, sitting up and eating well bed comfortably, in no acute distress. His chest pain had completely resolved. She was admitted for further evaluation of this chest pain as he is high risk patient. Allergies No Known Allergies Allergy (Verified 06/11/19 15:36) Home medications list reviewed: Yes Home Medications: Aspirin Chewable [Aspirin Chewable*] 81 mg PO DAILY 06/11/19 Atorvastatin Calcium [Lipitor] 80 mg PO BEDTIME 06/11/19 Clopidogrel Bisulfate [Plavix*] 75 mg PO DAILY 06/11/19 Furosemide [Lasix*] 40 mg PO BID 06/11/19 Meclizine HCl [Antivert*] 12.5 mg PO BID 06/11/19 Metoprolol Succinate [Toprol Xl*] 50 mg PO BID 06/11/19 Omeprazole 20 mg PO DAILY 06/11/19 Pregabalin [Lyrica*] 50 mg PO TID 06/11/19 Ranolazine [Ranexa] 1,000 mg PO BID 06/11/19 Sacubitril/Valsartan [Entresto 97 mg-103 mg Tablet] 1 tab PO BID 06/11/19 Spironolactone [Aldactone*] 40 mg PO DAILY 06/11/19 - Past Medical/Surgical History Has patient received pneumonia vaccine in the past: No Diabetic: Yes -: Diabetes -: high blood pressure -: RI -: stroke -: open heart sx - Family History Father -: Cancer Mother -: Heart disease, Diabetes - Social History Smoking Status: Former smoker Alcohol use: Yes CD- Drugs: No Caffeine use: Yes Place of Residence: Home Review of Systems 10-point ROS is otherwise unremarkable Physical Examination - Vital Signs Temperature: 97.9 F Blood Pressure: 92/51 Pulse: 60 Respirations: 20 Pulse Ox (%): 97 - Physical Exam General: Alert, In no apparent distress, Oriented x3 HEENT: Atraumatic, PERRLA, Mucous membr. moist/pink, EOMI, Sclerae nonicteric Neck: Supple, 2+ carotid pulse no bruit, No LAD, Without JVD or thyroid abnormality Respiratory: Clear to auscultation bilaterally, Normal air movement Cardiovascular: Regular rate/rhythm, Normal S1 S2 Gastrointestinal: Normal bowel sounds, No tenderness Musculoskeletal: No tenderness Integumentary: No rashes Neurological: Normal gait, Normal speech, Normal strength at 5/5 x4 extr, Normal tone, Normal affect Lymphatics: No axilla or inguinal lymphadenopathy - Diagnosis (Problem(s)) (1) Chest pain Status: Acute Qualifiers: Chest pain type: unspecified Qualified Code(s): R07.9 - Chest pain, unspecified (2) Elevated troponin Status: Acute (3) Cardiac defibrillator in place Status: Chronic (4) AIMEE (acute kidney injury) Status: Acute (5) CHF (congestive heart failure) Status: Acute Qualifiers: Heart failure type: unspecified Heart failure chronicity: chronic Qualified Code(s): I50.9 - Heart failure, unspecified (6) CAD (coronary artery disease) Status: Chronic Qualifiers: Coronary Disease-Associated Artery/Lesion type: cahto artery [place] vs. transplanted heart: [place] heart Associated angina: with stable angina Qualified Code(s): I25.118 - Atherosclerotic heart disease of [place] coronary artery with other forms of angina pectoris (7) History of CVA (cerebrovascular accident) Status: Chronic Treatment Summary: Troponin elevated x3, but stable. Trend troponins. Cardiology consulted, cleared by cardiology for discharge with outpatient follow up with patient's primary ware carrier. He remained otherwise stable throughout the stay. No medication changes on discharge. - Disposition Discharge Date: 06/12/19 Disposition: ROUTINE DISCHARGE Condition: GOOD Patient Discharge Instructions: Please follow up with your primary ware carrier in 1 week. Diet: AHA Activity: Ad jw Time Spent Managing Pts Care (In Minutes): 55
== END 2019-06-12 11:37 | disposition home or self-care (01) ==
LOC: ER 11:05 → ERHOLD 13:16 → 2ND 15:04
PROVIDERS: ADMIT Family Medicine; ATTEND Family Medicine
DX: R07.9 Chest pain, unspecified (principal); N17.9 Acute kidney failure, unspecified; E11.9 Type 2 diabetes mellitus without complications; I25.10 Atherosclerotic heart disease of native coronary artery without angina pectoris; I11.0 Hypertensive heart disease with heart failure; I50.22 Chronic systolic (congestive) heart failure; Z95.1 Presence of aortocoronary bypass graft; Z95.810 Presence of automatic (implantable) cardiac defibrillator; I25.2 Old myocardial infarction; Z86.73 Personal history of transient ischemic attack (TIA), and cerebral infarction without residual deficits; Z79.82 Long term (current) use of aspirin; E78.5 Hyperlipidemia, unspecified
CPT/HCPCS: 96365; 93005; 93306; 85025 ×2; 80048 ×2; 36415; 85610; 80061; 82962 ×5; 80076; 81003; 84484 ×3; 83880; 70450; 71045; 94760 ×2; 99285; G0378 ×2